=== PATIENT | male | born 1935 | race Caucasian/White ===

== ENCOUNTER 2018-02-10 13:29 | Emergency (ER) | payer OTHER ==
[~2018-02-10] VITALS: Ht 162.6 cm; Wt 55.6 kg
[~2018-02-10 13:29] MED LIST: ASPI-319 PO; MECL1TAB42 PO; MULT-506 PO; XNX25 PO; saw palmetto
[2018-02-10 13:33] VITALS: Ht 162.6 cm; Wt 55.6 kg
--- NOTE | 2018-02-10 14:01 | EMERGENCY ROOM VISIT NOTE ---
History Report prepared by Zeus: Lucie Abernathy Under the Supervision of: Dr. Carlos Cardona M.D. First contact with patient: 13:49 Chief Complaint: NEURO SYMPTOMS Stated Complaint: DIZZINESS,PAIN & DISCOMFORT IN HEAD History of Present Illness The patient is an 82 year old male who presents to the Emergency Room with complaints of waxing and waning vertigo symptoms beginning a couple of weeks ago. The patient reports this is the worst day he has had since being diagnosed with vertigo. He also complains of lightheadedness and dizziness. He notes the dizziness worsens with movement and describes it as "spinning." The patient's states he has a couple episodes of slurring his speech and head pressure in the last couple of weeks. The patient had a problem with his hearing aid 2 weeks ago and had it fixed. The next morning, he woke up with these symptoms. He denies weakness, numbness, difficulty swallowing, fevers, chills, chest pain , shortness of breath, abdominal pain, or melena. The patient states he has no history of diabetes or strokes. He notes he is not on blood thinners but takes baby aspirin daily. Source of History: patient, spouse/significant other Onset: 2 weeks ago Quality: other (spinning) Timing: waxes/wanes Modifying Factors (Worsening): movement Associated Symptoms: No fevers, No chills, No chest pain, No SOB, No abdominal pain, No melena, No weakness, No numbness Review of Systems See HPI for pertinent positives & negatives. A total of 10 systems reviewed and were otherwise negative. Past Medical & Surgical Medical Problems: (1) Calculus of kidney Old medical records were reviewed. Nurse's notes were reviewed and I agree with. Social History Smoking Status: Never Smoker Marital Status: Housing Status: lives with significant other Current/Historical Medications Scheduled Aspirin Enteric Coated (Ecotrin Or Generic), 81 MG PO DAILY Multivitamin (Multivitamin), 1 TAB PO DAILY Scheduled PRN Alprazolam (Xanax), 0.25 MG PO UD PRN for Anxiety Meclizine Hcl (Meclizine Hcl), 1 TAB PO TID PRN for Dizziness or Vertigo Allergies Coded Allergies: No Known Allergies (Verified , 02/10/18) Physical Exam Vital Signs Date Time Temp Pulse Resp B/P (MAP) Pulse Ox O2 Delivery O2 Flow Rate FiO2 02/10/18 16:52 36.5 54 18 154/79 94 02/10/18 13:33 36.5 68 18 142/84 97 Room Air Physical Exam General: Non-ill appearing older male in no acute distress. HEENT: Normal cephalic atraumatic. Pupils are equal round and reactive to light. No nystagmus. Sclerae anicteric. Extraocular movements are intact. Oropharynx is pink with moist mucous membranes. No swelling of the mouth lips or tongue. Neck: Supple with a midline trachea. No meningeal signs or stiffness, no JVD or bruits. No Stridor. Chest: Clear to auscultation bilaterally. No wheezes or rhonchi. No increased work of breathing. Heart: regular rate and rhythm. Abdomen: Soft nontender, nondistended without rebound guarding or rigidity. Extremities: No cyanosis clubbing or edema. No calf tenderness or assymetry Spine/Back. Non tender to palpation. No CVA tenderness Skin: Good turgor without rashes. Neurologic exam: Cranial nerves two through 12 are intact. Motor and sensation are intact and symmetrical throughout. Normal gate, some difficulty with heal to toe, negative Romberg's, normal finger to nose, no tremor. Medical Decision & Procedures ER Provider Diagnostic Interpretation: Radiology results as stated below per my review and radiologist interpretation: CT SCAN OF THE BRAIN WITHOUT IV CONTRAST CLINICAL HISTORY: Dizziness. COMPARISON STUDY: No priors. TECHNIQUE: Unenhanced axial CT scan of the brain is performed from the vertex to the skull base. A dose lowering technique was utilized adhering to the principles of ALARA. CT DOSE: 537.48 mGy.cm FINDINGS: Brain parenchyma: There are age-related involutional changes noting mild subcortical and periventricular microangiopathic change. There is no hemorrhage, mass effect, or evidence of acute territorial ischemia by CT criteria. Carrion-white matter is preserved. No extra-axial fluid collection is seen. Ventricles, sulci, cisterns: Prominent secondary to involutional change. Intracranial vasculature: There is atherosclerotic calcification of the cavernous carotid and vertebral arteries. Calvarium: Unremarkable. Sinuses and mastoids: The visualized paranasal sinuses are clear. The mastoid air cells are well pneumatized. Orbits: The bony orbits are grossly intact. IMPRESSION: There is no hemorrhage, mass effect, or evidence of acute territorial ischemia by CT criteria. Electronically signed by: Clark Newton M.D. 02/10/2018 2:52 PM Dictated Date/Time: 02/10/2018 2:50 PM CHEST ONE VIEW PORTABLE CLINICAL HISTORY: 82 years-old Male presenting with CHEST PAIN. TECHNIQUE: Portable upright AP view of the chest was obtained. COMPARISON: 07/21/2012. FINDINGS: Atherosclerosis of the aortic arch. Cardiac silhouette normal in size. Lungs and pleural spaces clear. Reverse right total shoulder arthroplasty new since prior exam. Degenerative changes of the spine. Degenerative changes of the left glenohumeral joint. Upper abdomen normal. IMPRESSION: 1. No acute cardiopulmonary disease. Electronically signed by: Cj Powers M.D. 02/10/2018 2:39 PM Dictated Date/Time: 02/10/2018 2:38 PM Laboratory Results 02/10/18 14:30 Red Blood Count 4.98, Mean Corpuscular Volume 90.4, Mean Corpuscular Hemoglobin 30.7, Mean Corpuscular Hemoglobin Concent 34.0, Mean Platelet Volume 10.5, Neutrophils (%) (Auto) 86.8, Lymphocytes (%) (Auto) 7.4, Monocytes (%) (Auto) 5.3, Eosinophils (%) (Auto) 0.1, Basophils (%) (Auto) 0.1, Neutrophils # (Auto) 9.28, Lymphocytes # (Auto) 0.79, Monocytes # (Auto) 0.57, Eosinophils # (Auto) 0.01, Basophils # (Auto) 0.01 02/10/18 14:30 Test 02/10/18 14:30 02/10/18 14:38 White Blood Count 10.69 K/uL (4.8-10.8) Red Blood Count 4.98 M/uL (4.7-6.1) Hemoglobin 15.3 g/dL (14.0-18.0) Hematocrit 45.0 % (42-52) Mean Corpuscular Volume 90.4 fL (80-100) Mean Corpuscular Hemoglobin 30.7 pg (25-34) Mean Corpuscular Hemoglobin Concent 34.0 g/dl (32-36) Platelet Count 261 K/uL (130-400) Mean Platelet Volume 10.5 fL (7.4-10.4) Neutrophils (%) (Auto) 86.8 % Lymphocytes (%) (Auto) 7.4 % Monocytes (%) (Auto) 5.3 % Eosinophils (%) (Auto) 0.1 % Basophils (%) (Auto) 0.1 % Neutrophils # (Auto) 9.28 K/uL (1.4-6.5) Lymphocytes # (Auto) 0.79 K/uL (1.2-3.4) Monocytes # (Auto) 0.57 K/uL (0.11-0.59) Eosinophils # (Auto) 0.01 K/uL (0-0.5) Basophils # (Auto) 0.01 K/uL (0-0.2) RDW Standard Deviation 42.1 fL (36.4-46.3) RDW Coefficient of Variation 12.8 % (11.5-14.5) Immature Granulocyte % (Auto) 0.3 % Immature Granulocyte # (Auto) 0.03 K/uL (0.00-0.02) Anion Gap 4.0 mmol/L (3-11) Est Creatinine Clear Calc Drug Dose 39.3 ml/min Estimated GFR () 67.1 Estimated GFR (Non- 57.9 BUN/Creatinine Ratio 15.6 (10-20) Calcium Level 9.9 mg/dl (8.5-10.1) Total Bilirubin 0.4 mg/dl (0.2-1) Direct Bilirubin 0.1 mg/dl (0-0.2) Aspartate Amino Transf (AST/SGOT) 24 U/L (15-37) Alanine Aminotransferase (ALT/SGPT) 24 U/L (12-78) Alkaline Phosphatase 53 U/L (45-117) Total Protein 7.5 gm/dl (6.4-8.2) Albumin 4.0 gm/dl (3.4-5.0) Lipase 182 U/L (73-393) Bedside Troponin I < 0.030 ng/ml (0-0.045) Laboratory studies as stated above per my review. Medications Administered Medications (Trade) Dose Ordered Sig/Elliott Route Start Time Stop Time Status Last Admin Dose Admin Sodium Chloride 250 ml @ 999 mls/hr Q16M STAT IV 02/10/18 14:02 02/10/18 14:17 DC 02/10/18 14:36 999 MLS/HR Sodium Chloride 1,000 ml @ 100 mls/hr Q10H STAT IV 02/10/18 14:02 02/10/18 17:12 DC 02/10/18 14:36 100 MLS/HR ECG Per My Interpretation Indication: other (neuro symptoms) Rate (beats per minute): 56 Rhythm: sinus bradycardia Findings: no acute ischemic change, left axis deviation, no ectopy Comparison ECG Date: 02/15/16 Change: no significant change ED Course 1350: Past medical records reviewed. The patient was evaluated in room B3B, and a complete history and physical examination were performed. 1402: Ordered Sodium Chloride 1000 ml @ 100 mls/hr IV, Sodium Chloride 250 ml @ 999 mls/hr IV. 1645: Upon reevaluation, the patient is resting comfortably. I discussed the results and treatment plan with him. He verbalized agreement of the treatment plan. The patient was discharged home. Medical Decision Differential Diagnosis: vertigo, arrhythmia, central neurologic process, electrolyte or metabolic abnormality. This patient comes in as described above. he has been complaining of dizziness for about 2 weeks and it is worse with movement. He looks well on exam and has a normal neurologic exam. He has no ataxia. EKG was obtained does not show ischemic changes or ectopy. He has no acute electrolyte or metabolic abnormalities. Troponin is negative as well. CAT scan of the head was unremarkable. I do not think this is likely a posterior process and he has had vertigo before. I did offer to do an MRI but he prefers to go home at this point and will follow up with his doctor this may be indicated if he is not getting better. They can continue use the meclizine and he has done well with therapy in the past that they should follow-up with his well. The patient and his were happy the plan and he was discharged to home. Medication Reconcilliation Current Medication List: was personally reviewed by me Blood Pressure Screening Patient's blood pressure: Elevated blood pressure Blood pressure disposition: Elevated BP felt to be situational Impression Primary Impression: Dizziness Scribe Attestation The scribe's documentation has been prepared under my direction and personally reviewed by me in its entirety. I confirm that the note above accurately reflects all work, treatment, procedures, and medical decision making performed by me. Departure Information Dispostion Home / Self-Care Referrals Elder Fleming M.D.(RONDA) (PCP) Patient Instructions My [facility] Additional Instructions Rest. Be careful getting up and down. Follow-up with your doctor in 1-2 days for recheck Continue using meclizine as previously directed. Be careful can make you groggy do not take before drinking, driving, working Return if: Fever or chills, worsening symptoms, numbness weakness, any new problems or concerns
[2018-02-10] MEDS ORDERED: SODIUM CHLORIDE 0.9% 1000ML 250 ML IV STA (14:02)
[2018-02-10] MEDS ORDERED: SODIUM CHLORIDE 0.9% 1000ML 1,000 ML IV STA (14:02)
--- NOTE | 2018-02-10 14:40 | DIAGNOSTIC IMAGING REPORT ---
CHEST ONE VIEW PORTABLE CLINICAL HISTORY: 82 years-old Male presenting with CHEST PAIN. TECHNIQUE: Portable upright AP view of the chest was obtained. COMPARISON: 07/21/2012. FINDINGS: Atherosclerosis of the aortic arch. Cardiac silhouette normal in size. Lungs and pleural spaces clear. Reverse right total shoulder arthroplasty new since prior exam. Degenerative changes of the spine. Degenerative changes of the left glenohumeral joint. Upper abdomen normal. IMPRESSION: 1. No acute cardiopulmonary disease. Electronically signed by: Cj Powers M.D. 02/10/2018 2:39 PM Dictated Date/Time: 02/10/2018 2:38 PM
[2018-02-10 14:45] LABS: BASO % 0.1 %; BASO ABS # 0.01 K/uL (0-0.2); EOS % 0.1 %; EOS ABS # 0.01 K/uL (0-0.5); HEMOGLOBIN 15.3 g/dL (14.0-18.0); IG# 0.03 K/uL (0.00-0.02); LYMPH % 7.4 %; LYMPH ABS # 0.79 K/uL (1.2-3.4); MEAN CELL VOLUME 90.4 fL (80-100); MEAN CORPUSCULAR HEMOGLOBIN 30.7 pg (25-34); MEAN PLATELET VOLUME 10.5 fL (7.4-10.4); MONO % 5.3 %; MONO ABS # 0.57 K/uL (0.11-0.59); NEUT % 86.8 %; NEUT ABS # 9.28 K/uL (1.4-6.5); PLATELET COUNT 261 K/uL (130-400); RED CELL DISTRIBUTION WIDTH CV 12.8 % (11.5-14.5); RED CELL DISTRIBUTION WIDTH SD 42.1 fL (36.4-46.3); WHITE BLOOD COUNT 10.69 K/uL (4.8-10.8)
--- NOTE | 2018-02-10 14:53 | DIAGNOSTIC IMAGING REPORT ---
CT SCAN OF THE BRAIN WITHOUT IV CONTRAST CLINICAL HISTORY: Dizziness. COMPARISON STUDY: No priors. TECHNIQUE: Unenhanced axial CT scan of the brain is performed from the vertex to the skull base. A dose lowering technique was utilized adhering to the principles of ALARA. CT DOSE: 537.48 mGy.cm FINDINGS: Brain parenchyma: There are age-related involutional changes noting mild subcortical and periventricular microangiopathic change. There is no hemorrhage, mass effect, or evidence of acute territorial ischemia by CT criteria. Carrion-white matter is preserved. No extra-axial fluid collection is seen. Ventricles, sulci, cisterns: Prominent secondary to involutional change. Intracranial vasculature: There is atherosclerotic calcification of the cavernous carotid and vertebral arteries. Calvarium: Unremarkable. Sinuses and mastoids: The visualized paranasal sinuses are clear. The mastoid air cells are well pneumatized. Orbits: The bony orbits are grossly intact. IMPRESSION: There is no hemorrhage, mass effect, or evidence of acute territorial ischemia by CT criteria. Electronically signed by: Clark Newton M.D. 02/10/2018 2:52 PM Dictated Date/Time: 02/10/2018 2:50 PM
[2018-02-10] MEDS ORDERED: ALPR-411 PO (15:11)
[2018-02-10 15:12] LABS: CALCIUM 9.9 mg/dl (8.5-10.1); CREATININE 1.18 mg/dl (0.60-1.40); POTASSIUM 4.1 mmol/L (3.5-5.1); TOTAL PROTEIN 7.5 gm/dl (6.4-8.2)
--- NOTE | 2018-02-10 16:17 | Pharmacy Progress Note ---
ED Pharmacist Progress Note Date of Service: Feb 10, 2018. Patient took a medication for dizziness this AM but did not know the name. Patient provided verbal consent for me to contact outpatient pharmacy. Per Danielle Chaparro ([place]), patient filled the following Rx in June 2017 : Meclizine 25 mg tab 1 tab po TID prn dizziness Med rec updated.
[2018-02-10 16:52] VITALS: BP 154/79; PULSE 54; TEMP 36.5; O2SAT 94
== END 2018-02-10 16:53 | disposition home or self-care (01) ==
LOC: C.EDB 13:31
DX: R42 Dizziness and giddiness (principal)

== ENCOUNTER 2018-07-20 14:52 | Inpatient (IN) ==
[2018-07-20 15:35] LABS: Basophils # (auto) 0.01 K/uL (0-0.2); Basophils % (auto) 0.1 %; Eosinophils # (auto) 0.01 K/uL (0-0.5); Eosinophils % (auto) 0.1 %; Hematocrit (blood only) 42.9 % (42-52); Hemoglobin 14.2 g/dL (14.0-18.0); Immature Granulocytes # (auto) 0.05 K/uL (0.00-0.02); Immature Granulocytes % (auto) 0.3 %; Lymphocytes # (auto) 0.98 K/uL (1.2-3.4); Lymphocytes % (auto) 6.7 %; Mean Corpuscular Hgb Conc 33.1 g/dL (32-36); Mean Corpuscular Volume 90.7 fL (80-100); Monocytes # (auto) 0.58 K/uL (0.11-0.59); Neutrophils # (auto) 13.02 K/uL (1.4-6.5); Neutrophils % (auto) 88.8 %; Platelet Count 283 K/uL (130-400); RDW Coefficient of Variation 13.9 % (11.5-14.5); Red Blood Count 4.73 M/uL (4.7-6.1); White Blood Count 14.65 K/uL (4.8-10.8)
[2018-07-20 15:53] LABS: Alanine Aminotransferase 48 U/L (12-78); Albumin Level 4.1 gm/dl (3.4-5.0); Aspartate Aminotransferase 39 U/L (15-37); Blood Urea Nitrogen 20 mg/dl (7-18); Calcium 8.8 mg/dl (8.5-10.1); Carbon Dioxide 28 mmol/L (21-32); Chloride 107 mmol/L (98-107); Est GFR (African American) 73.9; Est GFR (Non-African American) 63.8; Glucose 112 mg/dl (70-99); Magnesium 2.2 mg/dl (1.8-2.4); Potassium 4.3 mmol/L (3.5-5.1); Sodium 138 mmol/L (136-145)
[2018-07-20] MEDS ORDERED: HYDROmorphone INJ 0.5 MG/0.5 ML SYR IV STA (16:20)
[2018-07-20 16:25] LABS: Albumin Globulin Ratio 1.3 (0.9-2); Alkaline Phosphatase 56 U/L (45-117); Bilirubin,Total 0.5 mg/dl (0.2-1); Globulin 3.2 gm/dl (2.5-4.0); Total Protein 7.3 gm/dl (6.4-8.2); Troponin I < 0.015 ng/ml (0-0.045)
[2018-07-20] MEDS ORDERED: HYDROmorphone INJ 1 MG/ML SYRINGE IV STA (17:20)
[2018-07-20] MEDS ORDERED: OPTIRAY 320 125ml IV PRN (18:04)
--- NOTE | 2018-07-20 18:08 | History & Physical Report ---
Date of Service July 20, 2018 Assessment & Plan (1) Necrotizing pancreatitis: We will consult GI Dr. Palmer, bowel rest, IV fluids, pain control, will hold off on antibiotics at this time unless he spikes a temp. The last time I saw him I get a CA-19-9 which was elevated at 48 (2) Pancreatitis: As above recurrent pancreatitis. (3) GERD (gastroesophageal reflux disease): IV PPI (4) Leukocytosis: If patient deteriorates and develops fevers and clinically gets worse we will start antibiotics (5) Enlarged prostate: Not on an alpha vishal at this time (6) Anxiety: We will prescribe Ativan IV as needed, is on Xanax at home. We will hold off on DVT prophylaxis this time until we are sure he does not have necrotizing pancreatitis. She is inpatient status secondary to a lipase of 77,000 History of Present Illness Primary Care Provider: Elder Fleming MD 82-year-old male with past medical history of necrotizing pancreatitis, recurrent pancreatitis, GERD, cleft palate, anxiety, prostatic hypertrophy, and renal calculi was here 05/20-05/24 and then again on 06/02 06/04 with recurrent pancreatitis. He says today at 1030 after he ate breakfast he started to get abdominal pain and he knew it was pancreatitis coming on again. He was supposed to get an EGD/EUS Dr. Palmer in July, I do not know if this is been completed or not. Anyway his try to get in touch with Dr. Palmer's office but was unsuccessful and came to the emergency room and was found to have a lipase level of over 77,000. He was also found with leukocytosis of 14.65, he is not febrile. Past medical historynecrotizing pancreatitis, recurrent pancreatitis, GERD, cleft palate, anxiety, BPH, renal calculi, CKD 3 Past surgical historyappendectomy, back surgery, shoulder surgery Family historysenile dementia eval timers type, CAD. Social history-no tobacco, drugs, or alcohol, lives with his , is at the bedside. Indications have been reconciled and reviewed Allergies Allergy/AdvReac Type Severity Reaction Status Date / Time No Known Allergies Allergy Verified 07/20/18 15:32 Home Medications Home Medications Medication Instructions Recorded Confirmed Type alprazolam [Xanax] 0.25 - 0.5 mg PO TID PRN 06/02/18 07/20/18 History multivitamin 1 tab PO DAILY 06/02/18 07/20/18 History omega 7-yvd-ejk-fish oil [Fish Oil] 1,000 mg PO DAILY 06/02/18 07/20/18 History pantoprazole [Protonix] 40 mg PO DAILY 06/02/18 07/20/18 History aspirin 81 mg PO DAILY 07/20/18 07/20/18 History Past Med/Surg History Medical History Statin intolerance (Chronic) GERD (gastroesophageal reflux disease) (Chronic) Cleft palate (Chronic) Anxiety (Chronic) Enlarged prostate (Chronic) Calculus of kidney (Resolved) Surgical History History of shoulder surgery (Chronic) History of back surgery (Resolved) Hx of appendectomy (Resolved) Family History Other Alzheimer disease Heart disease Social History marital status: Current Living Situation: Spouse Feels Safe at Home: Yes Smoking Status: Never smoker Hx Alcohol Use: No Hx Substance Use: No Beliefs That Will Affect Care: None Preferred Language: Grenadian Visual Impairment: No Limitations Physical Exam 2 Vital Signs (Past 24 Hours): Last Vital Signs Temp 36.4 C L 07/20/18 14:54 Pulse 61 07/20/18 17:03 Resp 16 07/20/18 17:03 BP 144/78 H 07/20/18 17:03 Pulse Ox 96 07/20/18 17:03 ROS-No Headache, No Visual Changes, no nausea or vomiting, no Fever, No Chills, No Neck Pain or Stiffness, No Chest Pain, No Palpitations, No SOB, No PILLAI, No Cough, No Sputum, No Wheezing, positive abdominal Pain, No Diarrhea, No Hematemesis, No Hemoptysis, No Unexpected Weight Loss, No Flank pain, No Melena , No Hematochezia, No Frequency, No Urgency, No Burning, No Hematuria, No Rashes , No Diaphoresis. Appetite is Normal Physical Exam Gen-AAO x 3, NAD, Afebrile, cachectic Head-NCAT, EOMI, PERRLA, Anicteric Sclera, No Posterior Pharyngeal Erythema, cleft palate Neck-Supple, No JVD, No Thyromegaly, No Masses, No LAD, No Bruits Lungs-Clear to Auscultation Bilaterally, No Rales, No Rhonchi, No Wheezing, No Crepitus Chest-No S4, +S1, +S2, No S3, No Murmurs, No Rubs, No Gallops, No Ectopy Abdomen-Soft, Bowel Sounds Present, Tender mid-epigastrium, Non Distended, No Hepatomegaly, No Splenomegaly, No Palpable Masses, No Rebound, No Rigidity, mild guarding Musculoskeletal-Full Range of Motion Bilaterally, No CVAT Extremities-No Cyanosis, No Clubbing, No Edema Nuero-Cranial Nerves II-XII grossly intact, Motor WNL, DTRs WNL, Strength WNL, No Focal Psych-Normal Mood Results & Data Laboratory Results 07/20/18 07/20/18 Range/Units 15:27 15:27 WBC 14.65 H (4.8-10.8) K/uL RBC 4.73 (4.7-6.1) M/uL Hgb 14.2 (14.0-18.0) g/dL Hct 42.9 (42-52) % MCV 90.7 (80-100) fL MCH 30.0 (25-34) pg MCHC 33.1 (32-36) g/dL RDW Std Deviation 46.0 (36.4-46.3) fL RDW Coeff of Jillian 13.9 (11.5-14.5) % Plt Count 283 (130-400) K/uL MPV 10.0 (7.4-10.4) fL Immature Gran % (Auto) 0.3 % Neut % (Auto) 88.8 % Lymph % (Auto) 6.7 % [place] % (Auto) 4.0 % Eos % (Auto) 0.1 % Baso % (Auto) 0.1 % Immature Gran # (Auto) 0.05 H (0.00-0.02) K/uL Neut # (Auto) 13.02 H (1.4-6.5) K/uL Lymph # (Auto) 0.98 L (1.2-3.4) K/uL [place] # (Auto) 0.58 (0.11-0.59) K/uL Eos # (Auto) 0.01 (0-0.5) K/uL Baso # (Auto) 0.01 (0-0.2) K/uL Sodium 138 (136-145) mmol/L Potassium 4.3 (3.5-5.1) mmol/L Chloride 107 (98-107) mmol/L Carbon Dioxide 28 (21-32) mmol/L Anion Gap 3.0 (3-11) BUN 20 H (7-18) mg/dl Creatinine 1.09 (0.6-1.4) mg/dl Est Cr Clr Drug Dosing 42.0 ml/min Est GFR ( Amer) 73.9 Est GFR (Non-Af Amer) 63.8 BUN/Creatinine Ratio 18.0 (10-20) Glucose 112 H (70-99) mg/dl Calcium 8.8 (8.5-10.1) mg/dl Magnesium 2.2 (1.8-2.4) mg/dl Total Bilirubin 0.5 (0.2-1) mg/dl AST 39 H (15-37) U/L ALT 48 (12-78) U/L Alkaline Phosphatase 56 (45-117) U/L Troponin I < 0.015 (0-0.045) ng/ml Total Protein 7.3 (6.4-8.2) gm/dl Albumin 4.1 (3.4-5.0) gm/dl Globulin 3.2 (2.5-4.0) gm/dl Albumin/Globulin Ratio 1.3 (0.9-2) Lipase 41260 H (73-393) U/L Code Status & VTE Plan VTE Prophylaxis Plan VTE Prophylaxis will be ordered: No Reason for no VTE drug order: Contraindicated _ (1) Pancreatitis Acute pancreatitis complication: uninfected necrosis Chronicity: acute Pancreatitis type: unspecified pancreatitis type Qualified Code(s): K85.91 - Acute pancreatitis with uninfected necrosis, unspecified
--- NOTE | 2018-07-20 18:18 | CT Scan Report ---
CT abd pelvis IV con only CLINICAL HISTORY: pancreatitis, hx necrotizing pancreatitis COMPARISON STUDY: 06/02/2018 TECHNIQUE: The patient was scanned in a dynamic helical fashion during intravenous administration 1 t hrough 20 cc of Optiray 320. A dose lowering technique was utilized adhering to the principles of AL JUAN. CT DOSE: 286.91 mGycm FINDINGS: Lower chest: There are bibasilar opacities, statistically atelectatic. Liver: The contrast-enhanced liver is normal in size, contour, and attenuation. There is no intrahepa tic biliary ductal dilatation. The hepatic veins and portal veins are patent. Gallbladder: The gallbladder is not distended. There is mild pericholecystic fluid. No calculi are vi sualized. Spleen: No splenic masses are visualized. There is minimal perisplenic fluid. Pancreas: There is diffuse infiltration of the peripancreatic fat, consistent with the history of acu te pancreatitis. There is no current evidence of pancreatic necrosis. There is interval decrease in t he size of a 33 mm peripancreatic focus of wall necrosis. There are no new or enlarging focal peripan creatic fluid collections. Adrenal glands: Unremarkable. Kidneys: There is symmetric renal cortical enhancement. The kidneys are normal in size without hydron ephrosis. Bowel: There are no transition zones to indicate bowel obstruction. There is colonic diverticulosis. There is no evidence of acute or diverticular inflammatory change. There are prominent fluid-filled s mall bowel loops, likely secondary to an ileus. The stomach is fluid-filled and mildly distended. Peritoneum: There is a small amount of upper abdominal fluid which is felt to be secondary to pancrea titis. Vasculature: The abdominal aorta is normal in course and caliber. Adenopathy: None. Pelvic viscera: The prostate is enlarged measuring 66 mm. Skeletal structures: There is a bony defect involving the right iliac crest. This is likely secondary to a bone harvest site. Postsurgical changes are present within the lumbar spine. IMPRESSION: 1. Mildly distended fluid-filled stomach 2. CT evidence of acute pancreatitis. Interval decrease in the size of a 3 cm focus of presumed mikal d off necrosis adjacent to the pancreatic body 3. No evidence of drainable fluid collection 4. Mildly prominent fluid-filled small bowel loops without evidence of a transition zone. A mild ileu s is suspected. 5. Diverticulosis. No evidence of acute diverticulitis 6. Marked prostatomegaly Electronically signed by: Jarrett Hayes M.D. 07/20/2018 6:16 PM
[2018-07-20] MEDS ORDERED: LORazepam 0.5 MG/1 ML VIAL IV PRN (18:53)
--- NOTE | 2018-07-20 19:07 | Emergency Department Note ---
Entered by Edgar Galeas acting as a scribe for Maria Dolores Terry DO History of Present Illness General Chief complaint: Abdominal Pain Stated complaint: PAIN ACROSS BELLY Time Seen by Provider: 07/20/18 14:56 Source: patient History of Present Illness Onset (ago): hour(s) (this morning) Location: abdomen Pain Consistency: + constant Quality: + other (diffuse abdominal pain) Relieved By: not by medication (TUMS or Advil) Exacerbated By: + other (drinking Gatorade) Associated symptoms: + other (right abdomen numbness; sharp back pain; recent pancreatitis) The patient is an 82 year old male who presents to the Emergency Room with complaints of constant diffuse abdominal pain beginning this morning. The patient reports that the pain started about five minutes after drinking a glass of Gatorade. He states that his pain was not improved with TUMS, Advil, belching , or changing position. He notes that recently when he has a bowel movement, he becomes temporarily numb from his right to his lower abdomen, and then if he places weight on his right leg, he also becomes numb in the right abdomen but not the leg. The patient reports that this is the third time he has experienced this pain, stating that each time it has been pancreatitis. He notes that his past two episodes of this occurred in the past couple of months, first on May 19, and both developed shortly after eating or drinking. He notes some sharp back pain that is not associated with the numbness but was present during his prior cases of pancreatitis. He denies a history of pancreas issues prior to the past couple of months, Crohns, ulcerative colitis, gallbladder issues, leg swelling, or family history of pancreatitis. He notes that he was also diagnosed with diverticulitis a few weeks ago and has been taking protonix. He also reports a history of nervous stomach. He states that he has not been drinking alcohol for about 30 years. He reports that he has an upcoming appointment scheduled at [place] for an endoscopic ultrasound and EGD with Dr. Spencer KING. He notes that he has also seen Dr. Dawn KING. The notes that the patient received a CT of the abdomen a few weeks ago. Home Medications Home Medications Medication Instructions Recorded Confirmed Type alprazolam [Xanax] 0.25 - 0.5 mg PO TID PRN 06/02/18 07/20/18 History multivitamin 1 tab PO DAILY 06/02/18 07/20/18 History omega 7-eqo-mxd-fish oil [Fish Oil] 1,000 mg PO DAILY 06/02/18 07/20/18 History pantoprazole [Protonix] 40 mg PO DAILY 06/02/18 07/20/18 History aspirin 81 mg PO DAILY 07/20/18 07/20/18 History Allergies Allergy/AdvReac Type Severity Reaction Status Date / Time No Known Allergies Allergy Verified 07/20/18 15:32 Past Med/Surg History Medical History Statin intolerance (Chronic) GERD (gastroesophageal reflux disease) (Chronic) Cleft palate (Chronic) Anxiety (Chronic) Enlarged prostate (Chronic) Calculus of kidney (Resolved) Hypertension Surgical History History of shoulder surgery (Chronic) History of back surgery (Resolved) Hx of appendectomy (Resolved) Family History Other Alzheimer disease Heart disease Social History marital status: Current Living Situation: Spouse Other Information That Helps Us Care for You: No Feels Safe at Home: Yes Safety Concerns: Feels Safe At This Time Smoking Status: Never smoker Hx Alcohol Use: No Hx Substance Use: No Beliefs That Will Affect Care: None Preferred Language: Turkmen Communication Ability: Effective Review of Systems See HPI for pertinent positives & negatives. and A total of 10 systems reviewed and were otherwise negative Physical Exam Vital Signs Vital Signs - 24 hr 07/21/18 07:49 07/21/18 08:00 07/21/18 12:04 Temperature 36.6 C 36.7 C Temperature Source Oral Oral Pulse Rate 70 Pulse Rate [Apical] 69 74 Pulse Rate [Left Finger] Pulse Rhythm [Left Finger] Pulse Strength [Left Finger] Respiratory Rate 20 20 Respiratory Effort / Characteristics Respiratory Depth Respiratory Pattern Blood Pressure [Left Arm] 138/79 Blood Pressure [Right Arm] 121/68 Blood Pressure Mean [Left Arm] 98 Blood Pressure Mean [Right Arm] 85 Blood Pressure Position [Left Arm] Lying Blood Pressure Position [Right Arm] Pulse Oximetry 94 93 Oxygen Delivery Method Room Air Room Air 07/21/18 15:04 07/21/18 17:41 07/21/18 19:00 Temperature 36.8 C 37.0 C Temperature Source Oral Oral Pulse Rate Pulse Rate [Apical] Pulse Rate [Left Finger] 74 75 Pulse Rhythm [Left Finger] Pulse Strength [Left Finger] Respiratory Rate 18 18 Respiratory Effort / Characteristics Respiratory Depth Respiratory Pattern Blood Pressure [Left Arm] 147/75 H Blood Pressure [Right Arm] 158/116 H 152/87 H Blood Pressure Mean [Left Arm] 99 Blood Pressure Mean [Right Arm] 130 108 Blood Pressure Position [Left Arm] Lying Blood Pressure Position [Right Arm] Lying Pulse Oximetry 95 91 Oxygen Delivery Method Room Air Room Air 07/21/18 23:45 07/22/18 04:00 Temperature 37.2 C 37.3 C Temperature Source Oral Oral Pulse Rate Pulse Rate [Apical] Pulse Rate [Left Finger] 63 70 Pulse Rhythm [Left Finger] Regular Regular Pulse Strength [Left Finger] Normal Normal Respiratory Rate 18 18 Respiratory Effort / Characteristics Non-Labored Non-Labored Spontaneous Respiratory Depth Normal Normal Respiratory Pattern Regular Regular Blood Pressure [Left Arm] 124/62 Blood Pressure [Right Arm] 126/61 Blood Pressure Mean [Left Arm] 82 Blood Pressure Mean [Right Arm] 82 Blood Pressure Position [Left Arm] Lying Blood Pressure Position [Right Arm] Lying Pulse Oximetry 93 93 Oxygen Delivery Method Room Air Room Air GENERAL: alert, well appearing, well nourished, no distress, non-toxic EYE EXAM: normal conjunctiva, PERRL and EOM's grossly intact OROPHARYNX: no exudate, no erythema, lips, buccal mucosa, and tongue normal and mucous membranes are moist, evidence of repaired cleft palate NECK: supple, no nuchal rigidity, no adenopathy, non-tender LUNGS: Clear to auscultation. Normal chest wall mechanics, no w/r/r HEART: no murmurs, S1 normal and S2 normal ABDOMEN: abdomen soft, epigastric and central abdominal tenderness, normo- active bowel sounds, no masses, no rebound or guarding. BACK: Back is symmetrical on inspection and there is no deformity, no midline tenderness, no CVA tenderness. SKIN: no rashes and no bruising UPPER EXTREMITIES: upper extremities are grossly normal. FROM, nml pulses b/l. LOWER EXTREMITIES: No pitting edema. FROM, nml pulses b/l. NEURO EXAM: Normal sensorium, cranial nerves II-XII grossly intact, normal speech, no gross weakness of arms, no gross weakness of legs. Gross sensation intact. Course 1507: Past medical records reviewed. The patient was evaluated in room C6, and a complete history and physical examination were performed. 1554: Outpatient CT of the abdomen/pelvis report was reviewed as below: IMPRESSION Previous inflammatory changes involving the tail of the pancreas have predominantly resolved with a residual 4 cm collection along the inferior aspect of the pancreatic tail, which likely represents walled off necrosis. 1650: [place] [address]. 1654: I updated the patient on his results. He is still having pain. 1728: I consulted Natalie Gilbert PA-C: [facility]. She will evaluate the patient for hospitalization. 1826: I updated the patient on his CT results. Consultations Consultation #1: I consulted Natalie Gilbert PA-C: [facility]. She will reevaluate the patient for hospitalization. Time: 17:28 Administered Medications Enoxaparin Sodium (Lovenox) 40 mg SQ Q24H SUZANNE Stop: 08/20/18 13:44 Last Admin: 07/21/18 21:39 Dose: Not Given Pantoprazole Sodium 40 mg/ (Syringe) 10 mls @ 5 mls/min IV BID SUZANNE Stop: 08/19/18 20:59 Last Admin: 07/21/18 21:28 Dose: 5 mls/min Admin: 07/21/18 07:56 Dose: 5 mls/min Admin: 07/20/18 21:06 Dose: 5 mls/min Lactated Ringer's (Lr) 1,000 mls @ 175 mls/hr IV .Q5H43M SUZANNE Stop: 08/20/18 10:59 Last Admin: 07/22/18 05:36 Dose: 175 mls/hr Infusion: 07/22/18 03:17 Dose: 175 mls/hr Admin: 07/21/18 21:34 Dose: 175 mls/hr Infusion: 07/21/18 21:17 Dose: 175 mls/hr Admin: 07/21/18 15:34 Dose: 175 mls/hr Infusion: 07/21/18 15:34 Dose: 175 mls/hr Admin: 07/21/18 11:26 Dose: 175 mls/hr Discontinued Medications Hydromorphone HCl (Dilaudid) 0.5 mg IV NOW STA Stop: 07/20/18 16:21 Last Admin: 07/20/18 16:36 Dose: 0.5 mg Hydromorphone HCl (Dilaudid) 1 mg IV NOW STA Stop: 07/20/18 17:21 Last Admin: 07/20/18 17:40 Dose: 1 mg Sodium Chloride (Nss 1000ml) 1,000 mls @ 100 mls/hr IV .Q10H SUZANNE Stop: 07/22/18 18:14 Last Infusion: 07/21/18 16:35 Dose: 0 mls/hr Admin: 07/21/18 05:29 Dose: 100 mls/hr Infusion: 07/21/18 05:29 Dose: 100 mls/hr Infusion: 07/20/18 21:01 Dose: 100 mls/hr Infusion: 07/20/18 19:44 Dose: 0 mls/hr Admin: 07/20/18 19:35 Dose: 100 mls/hr Lactated Ringer's (Lr) 1,000 mls @ 999 mls/hr IV .Q1H1M ONE Stop: 07/21/18 14:47 Last Infusion: 07/21/18 15:35 Dose: 0 mls/hr Admin: 07/21/18 14:16 Dose: 999 mls/hr Ioversol (Optiray 320 125ml) 120 ml IV ONCE PRN PRN Reason: Interaction Checking Stop: 07/24/18 18:03 Last Admin: 07/20/18 18:04 Dose: 120 ml Morphine Sulfate (Morphine Sulfate) 4 mg IV Q4 PRN PRN Reason: Pain Stop: 08/03/18 18:52 Last Admin: 07/21/18 05:29 Dose: 4 mg Admin: 07/21/18 01:11 Dose: 4 mg Medical Decision Making Differential Diagnosis Differential diagnosis: Etiologies such as appendicitis, diverticulitis, PUD, biliary pathology, UTI, pancreatitis, obstruction, mesenteric ischemia, aortic pathology, infections, inflammatory bowel disease, renal colic, as well as others were entertained. Medical Records Attestation: I reviewed the patient's medical records. Home Medications Current Medication List: was personally reviewed by me Laboratory Data Attestation: I reviewed the patient's lab results. Result diagrams: 07/22/18 05:48 07/21/18 07:12 Lab Results 07/20/18 07/20/18 07/21/18 Range/Units 15:27 15:27 07:12 WBC 14.65 H (4.8-10.8) K/uL RBC 4.73 (4.7-6.1) M/uL Hgb 14.2 (14.0-18.0) g/dL Hct 42.9 (42-52) % MCV 90.7 (80-100) fL MCH 30.0 (25-34) pg MCHC 33.1 (32-36) g/dL RDW Std Deviation 46.0 (36.4-46.3) fL RDW Coeff of Jillian 13.9 (11.5-14.5) % Plt Count 283 (130-400) K/uL MPV 10.0 (7.4-10.4) fL Immature Gran % (Auto) 0.3 % Neut % (Auto) 88.8 % Lymph % (Auto) 6.7 % Calloway % (Auto) 4.0 % Eos % (Auto) 0.1 % Baso % (Auto) 0.1 % Immature Gran # (Auto) 0.05 H (0.00-0.02) K/uL Neut # (Auto) 13.02 H (1.4-6.5) K/uL Lymph # (Auto) 0.98 L (1.2-3.4) K/uL Calloway # (Auto) 0.58 (0.11-0.59) K/uL Eos # (Auto) 0.01 (0-0.5) K/uL Baso # (Auto) 0.01 (0-0.2) K/uL PT 11.3 (9.0-12.0) Seconds INR 1.1 (0.9-1.1) Sodium 138 (136-145) mmol/L Potassium 4.3 (3.5-5.1) mmol/L Chloride 107 (98-107) mmol/L Carbon Dioxide 28 (21-32) mmol/L Anion Gap 3.0 (3-11) BUN 20 H (7-18) mg/dl Creatinine 1.09 (0.6-1.4) mg/dl Est Cr Clr Drug Dosing 42.0 ml/min Est GFR ( Amer) 73.9 Est GFR (Non-Af Amer) 63.8 BUN/Creatinine Ratio 18.0 (10-20) Glucose 112 H (70-99) mg/dl Calcium 8.8 (8.5-10.1) mg/dl Magnesium 2.2 (1.8-2.4) mg/dl Total Bilirubin 0.5 (0.2-1) mg/dl AST 39 H (15-37) U/L ALT 48 (12-78) U/L Alkaline Phosphatase 56 (45-117) U/L Troponin I < 0.015 (0-0.045) ng/ml Total Protein 7.3 (6.4-8.2) gm/dl Albumin 4.1 (3.4-5.0) gm/dl Globulin 3.2 (2.5-4.0) gm/dl Albumin/Globulin Ratio 1.3 (0.9-2) Lipase 35101 H (73-393) U/L 07/21/18 07/22/18 07/22/18 Range/Units 07:12 05:48 05:48 WBC 10.91 H (4.8-10.8) K/uL RBC 3.99 L (4.7-6.1) M/uL Hgb 11.8 L (14.0-18.0) g/dL Hct 35.8 L (42-52) % MCV 89.7 (80-100) fL MCH 29.6 (25-34) pg MCHC 33.0 (32-36) g/dL RDW Std Deviation 46.4 H (36.4-46.3) fL RDW Coeff of Jillian 14.1 (11.5-14.5) % Plt Count 216 (130-400) K/uL MPV 10.3 (7.4-10.4) fL Immature Gran % (Auto) 0.2 % Neut % (Auto) 79.0 % Lymph % (Auto) 11.0 % Calloway % (Auto) 9.1 % Eos % (Auto) 0.6 % Baso % (Auto) 0.1 % Immature Gran # (Auto) 0.02 (0.00-0.02) K/uL Neut # (Auto) 8.62 H (1.4-6.5) K/uL Lymph # (Auto) 1.20 (1.2-3.4) K/uL Calloway # (Auto) 0.99 H (0.11-0.59) K/uL Eos # (Auto) 0.07 (0-0.5) K/uL Baso # (Auto) 0.01 (0-0.2) K/uL PT (9.0-12.0) Seconds INR (0.9-1.1) Sodium 139 (136-145) mmol/L Potassium 3.7 (3.5-5.1) mmol/L Chloride 106 (98-107) mmol/L Carbon Dioxide 27 (21-32) mmol/L Anion Gap 6.0 (3-11) BUN 22 H (7-18) mg/dl Creatinine 0.93 (0.6-1.4) mg/dl Est Cr Clr Drug Dosing 49.2 ml/min Est GFR ( Amer) 89.5 Est GFR (Non-Af Amer) 77.3 BUN/Creatinine Ratio 23.3 H (10-20) Glucose 113 H (70-99) mg/dl Calcium 8.4 L (8.5-10.1) mg/dl Magnesium (1.8-2.4) mg/dl Total Bilirubin 0.7 (0.2-1) mg/dl AST 39 H (15-37) U/L ALT 48 (12-78) U/L Alkaline Phosphatase 51 (45-117) U/L Troponin I (0-0.045) ng/ml Total Protein 6.3 L (6.4-8.2) gm/dl Albumin 3.3 L (3.4-5.0) gm/dl Globulin 3.0 (2.5-4.0) gm/dl Albumin/Globulin Ratio 1.1 (0.9-2) Lipase 93921 H 1230 H (73-393) U/L Imaging Data Radiologist's Impression: Radiology results as stated below per my review and the radiologist's interpretation: CT abd pelvis IV con only CLINICAL HISTORY: pancreatitis, hx necrotizing pancreatitis COMPARISON STUDY: 06/02/2018 TECHNIQUE: The patient was scanned in a dynamic helical fashion during intravenous administration 1 through 20 cc of Optiray 320. A dose lowering technique was utilized adhering to the principles of ALARA. CT DOSE: 286.91 mGycm FINDINGS: Lower chest: There are bibasilar opacities, statistically atelectatic. Liver: The contrast-enhanced liver is normal in size, contour, and attenuation. There is no intrahepatic biliary ductal dilatation. The hepatic veins and portal veins are patent. Gallbladder: The gallbladder is not distended. There is mild pericholecystic fluid. No calculi are visualized. Spleen: No splenic masses are visualized. There is minimal perisplenic fluid. Pancreas: There is diffuse infiltration of the peripancreatic fat, consistent with the history of acute pancreatitis. There is no current evidence of pancreatic necrosis. There is interval decrease in the size of a 33 mm peripancreatic focus of wall necrosis. There are no new or enlarging focal peripancreatic fluid collections. Adrenal glands: Unremarkable. Kidneys: There is symmetric renal cortical enhancement. The kidneys are normal in size without hydronephrosis. Bowel: There are no transition zones to indicate bowel obstruction. There is colonic diverticulosis. There is no evidence of acute or diverticular inflammatory change. There are prominent fluid-filled small bowel loops, likely secondary to an ileus. The stomach is fluid-filled and mildly distended. Peritoneum: There is a small amount of upper abdominal fluid which is felt to be secondary to pancreatitis. Vasculature: The abdominal aorta is normal in course and caliber. Adenopathy: None. Pelvic viscera: The prostate is enlarged measuring 66 mm. Skeletal structures: There is a bony defect involving the right iliac crest. This is likely secondary to a bone harvest site. Postsurgical changes are present within the lumbar spine. IMPRESSION: 1. Mildly distended fluid-filled stomach 2. CT evidence of acute pancreatitis. Interval decrease in the size of a 3 cm focus of presumed walled off necrosis adjacent to the pancreatic body 3. No evidence of drainable fluid collection 4. Mildly prominent fluid-filled small bowel loops without evidence of a transition zone. A mild ileus is suspected. 5. Diverticulosis. No evidence of acute diverticulitis 6. Marked prostatomegaly Electronically signed by: Jarrett Hayes M.D. 07/20/2018 6:16 PM ECG Data Attestation: I personally reviewed and interpreted this ECG as follows: Indication: abdominal pain Rate (beats per minute): 58 Rhythm: sinus bradycardia Findings: + other (normal intervals; baseline artifact noted) and + left axis deviation; no ST depression and no ST elevation Blood Pressure Blood Pressure Findings: Elevated blood pressure Blood Pressure Disposition: further management by hospitalist AZUL Garza Patient here with acute onset abdominal pain consistent with prior episodes of pancreatitis. Pt found to have markedly elevated lipase. Given prior CT findings of necrotizing pancreatitis, patient scheduled already for EGD and endoscopic ultrasound with Dr. Palmer. Due to concern for this and no way to contact Dr. Palmer or a covering [facility] GI physician, case discussed with [facility] for additional help managing the patient. In the interim a repeat CAT scan was obtained, and the previously noted area of necrotizing pancreatitis had substantially decreased. Patient started on IV fluids and given pain medication here which did help. Patient was hemodynamically stable. No other acute abnormalities noted on CT imaging, and other labs reassuring. Patient aware of all results and was in agreement with plan for additional inpatient management at this time. Impression & Plan Pancreatitis Discharge Plan Visit Data *Final* Discharge Date/Time: 07/20/18 18:34 Chief Complaint: Abdominal Pain Stated Complaint: PAIN ACROSS BELLY ED Provider: Maria Dolores Terry Discharge Problem: Pancreatitis Patient Disposition: Admitted As Inpatient Condition: Fair Discharge Instructions Interventions: ED Discharge Assessment Last Done: 07/20/18 18:34 The scribe's documentation has been prepared under my direction and personally reviewed by me in its entirety. I confirm that the note above accurately reflects all work, treatment, procedures, and medical decision making performed by me.
[2018-07-20] MEDS: SODIUM CHLORIDE 0.9% 1000ML 1,000 ML IV SCH (19:35)
[2018-07-20] MEDS: PANTOprazole 40 MG in SYRINGE 0 ML IV SCH (21:06)
[2018-07-21] MEDS: MoRPHine SULFATE 4 MG/ML 1 ML CARP\\VIAL IV PRN ×2 (01:11→05:29)
[2018-07-21] MEDS: SODIUM CHLORIDE 0.9% 1000ML 1,000 ML IV SCH (05:29)
[2018-07-21 07:34] LABS: INR 1.1 (0.9-1.1); Prothrombin Time 11.3 Seconds (9.0-12.0)
[2018-07-21 07:54] LABS: Albumin Level 3.3 gm/dl (3.4-5.0); BUN Creatinine Ratio 23.3 (10-20); Calcium 8.4 mg/dl (8.5-10.1); Creatinine Clr Calc Pharmacy 49.2 ml/min; Est GFR (African American) 89.5; Est GFR (Non-African American) 77.3; Potassium 3.7 mmol/L (3.5-5.1)
[2018-07-21] MEDS: PANTOprazole 40 MG in SYRINGE 0 ML IV SCH ×2 (07:56→21:28)
[2018-07-21 07:57] LABS: Albumin Globulin Ratio 1.1 (0.9-2); Bilirubin,Total 0.7 mg/dl (0.2-1); Total Protein 6.3 gm/dl (6.4-8.2)
--- NOTE | 2018-07-21 11:18 | Gastrointestinal Consultation ---
Date of Consultation July 21, 2018 Assessment & Plan (1) Pancreatitis: 1. Increase hydration. NS at 100cc/hr DC'ed. Will start LR at 175/hr. Would order rate to 250/hr but concerned at his age and small stature that it might cause fluid overload. 2. Though no clear indication for cholecystectomy, very reasonable to consider. If any microlithiasis is causing the pancreatitis, this could possibly prevent pancreatitis in the future. 3. Clear liquids po today. 4. Pt's is interested in transfer to [place]. Noted. However, the current treatment can be appropriately provided here at [facility]: fluids, bowel rest. 5. Pt's would like EUS today or tomorrow, however, EUS will likely need to be pushed back. If EUS is completed during or soon after an episode of acute pancreatitis, then landmarks and small lesions could be obscured. 6. Follow with lipase, Hb/Hct, electrolytes daily. Leukocytosis is more likely caused by pancreatitis vs infection as necrotic tissue is decreasing in size and pt w/o chills/sweats. Follow daily. Present on Admission?: Yes Supervising Physician Co-Signing Physician Notes I have personally seen and examined the patient with STACEY Shi. Her note reflects my exam and findings. I agree with her impression and plan. Pt with acute pancreatitis. NPO and pain control but most importantly he needs aggressive hydration. Needs 1 liter fluid bolus now and another liter over the next few hours( watch for CHF). Follow H/H and creatinine as indicator of needing more fluids. Discussed with at bedside as well. Yeyo Ca M.D. History of Present Illness Reason for Consultation: Pancreatitis Requesting Physician: Dr. Moe Attending Physician: Dr. Peña History of Present Illness Mr. Jl Palomo is an 82 yr old male with a hx of cleft lip post repair, GERD, BPH. He carries a hx of an initial episode of acute pancreatitis in May 2018. Initially, the CT scan suggested significant pancreatic tail inflammation. He did well and was discharged. Symptoms returned and he was readmitted in the end of May with CT suggesting necrotising pancreatitis. He was managed conservatively and did well after discharge. EUS was arranged for next week. Yesterday, after eating breakfast, he experienced upper abdomen pain, nausea and vomiting. He recognized this as the same pain that he experiences with pancreatitis and presented to the ED. On arrival, CT with acute pancreatitis, and a decrease in the size of walled off necrotic tissue. Lipase was elevated at 77k yesterday and decreased to 12k. His WBC on arrival was 14.6 with a shift left. His BUN is slightly elevated but creatinine is normal. Hb on arrival was 14.2. AST is mildly elevated at 39. Bilirubin and alk phos have remained normal. He has a gallbladder but there has not been evidence of stones or bile duct irregularities. He is awake, alert,oriented, hemodynamically stable. He tells me that his upper abdomen pain is "better," but has persisted and with prior episodes, his pain had resolved in 24 hrs. Allergies Allergy/AdvReac Type Severity Reaction Status Date / Time No Known Allergies Allergy Verified 07/20/18 15:32 Home Medications Home Medications Medication Instructions Recorded Confirmed Type alprazolam [Xanax] 0.25 - 0.5 mg PO TID PRN 06/02/18 07/20/18 History multivitamin 1 tab PO DAILY 06/02/18 07/20/18 History omega 8-cgv-xjp-fish oil [Fish Oil] 1,000 mg PO DAILY 06/02/18 07/20/18 History pantoprazole [Protonix] 40 mg PO DAILY 06/02/18 07/20/18 History aspirin 81 mg PO DAILY 07/20/18 07/20/18 History Patient History Medical History Statin intolerance (Chronic) GERD (gastroesophageal reflux disease) (Chronic) Cleft palate (Chronic) Anxiety (Chronic) Enlarged prostate (Chronic) Calculus of kidney (Resolved) Hypertension Surgical History History of shoulder surgery (Chronic) History of back surgery (Resolved) Hx of appendectomy (Resolved) Family History Other Alzheimer disease Heart disease Social History marital status: Current Living Situation: Spouse Other Information That Helps Us Care for You: No Feels Safe at Home: Yes Safety Concerns: Feels Safe At This Time Smoking Status: Never smoker Hx Alcohol Use: No Hx Substance Use: No Beliefs That Will Affect Care: None Preferred Language: French Communication Ability: Effective Review of Systems Constitutional: no fever, no chills, no sweats, no body aches and no fatigue Respiratory: no cough and no dyspnea Cardiovascular: no chest pain, no dyspnea on exertion, no palpitations and no edema Gastrointestinal: + abdominal pain, + bloating and + early satiety "feels full," "not hungry" Integumentary: no rash and no lesions no jaundice Neurologic: + gait abnormality and + numbness (reoports having felt some right flank, groin and rt buttocks numbness yesterday); no tremor(s), no seizure-like activity and no syncope Psychiatric: + change in appetite; no behavioral changes, no depression and no hopelessness Hematologic / Lymphatic: no easy bleeding, no easy bruising and no lymphadenopathy Physical Exam 2 Vital Signs (Past 24 Hours): Last Vital Signs Temp 36.6 C 07/21/18 08:00 Pulse 69 07/21/18 08:00 Resp 20 07/21/18 08:00 BP 121/68 07/21/18 08:00 Pulse Ox 94 07/21/18 08:00 Constitutional: WD/WN, vitals as above + thin; no acute distress uncomfortable Eyes: PERRL, conjunctivae normal, anicteric sclerae Neck: trachea midline, no thyromegaly no lymphadenopathy Respiratory: normal respiratory effort, lungs clear to auscultation Cardiovascular: RRR, no murmur, no edema Gastrointestinal (Abdomen): Inspection/Auscultation: normal bowel sounds ( hypoactive); abdomen not distended Percussion/Palpation: + abdomen tender ( epigastric tenderness, also discomfort across the upper abdomen); no ascites and abdomen not firm Neurologic: PERRL, EOMI, accommodation nl, no face palsy, no dysarthria Results & Data Laboratory Results WBC 14, Hb 14, Hct 42, platelets 263, Na 139, K 3.7, BUN 22, Cr 0.9, Diagnostic Findings CT IV contrast: 1. Mildly distended fluid-filled stomach 2. CT evidence of acute pancreatitis. Interval decrease in the size of a 3 cm focus of presumed walled off necrosis adjacent to the pancreatic body 3. No evidence of drainable fluid collection 4. Mildly prominent fluid-filled small bowel loops without evidence of a transition zone. A mild ileus is suspected. 5. Diverticulosis. No evidence of acute diverticulitis 6. Marked prostatomegaly _ (1) Pancreatitis Acute pancreatitis complication: uninfected necrosis Chronicity: acute Pancreatitis type: unspecified pancreatitis type Qualified Code(s): K85.91 - Acute pancreatitis with uninfected necrosis, unspecified
[2018-07-21] MEDS: LACTATED RINGER'S 1,000 ML IV SCH ×3 (11:26→21:34)
--- NOTE | 2018-07-21 12:56 | Hospitalist Progress Note ---
Date of Service July 21, 2018 Assessment & Plan (1) Pancreatic necrosis: Workup during prior admission to include a right upper quadrant ultrasound and an abdominal pelvis CT did not reveal any evidence of cholelithiasis. He denies alcohol use. The patient was planned to undergo an endoscopy with endoscopic ultrasound to screen for cholelithiasis as an outpatient, prior to admission. Per GI recommendations, this needs to be pushed back in the setting of acute inflammation. Continue bowel rest with pain and vomiting this morning. Continue more aggressive fluid resuscitation as increased per GI earlier today. Continue anti-emetics and pain medication as needed. Of note, area of necrotic inflammation has appeared to improve on CT imaging yesterday. (2) Numbness: Uncertain etiology. Patient states that it tracks from his right lower quadrant, wrapping around to his gluteus and down to the mid upper posterior thigh. However, this numbness is fleeting and only occurs when he is starting to walk and or when he sits down to use the restroom. Will continue to monitor for recurrences for now. (3) Leukocytosis: Likely secondary to acute necrotizing pancreatitis as above. (4) Anxiety: Ativan IV as needed. Patient is on Xanax at home. (5) DVT prophylaxis: add Lovenox. Full code Disposition-continue inpatient hospitalization while patient cannot tolerate p.o. Jess Peña DO [facility] Hospitalist Subjective 82-year-old man with a history of acute pancreatitis admission to the hospital in May 2018 presents again with a recurrence of acute pancreatitis. Since prior discharge she is been seen by the gastroenterology clinic and scheduled for an endoscopy with EUS to determine if the patient has underlying cholelithiasis. He was treated for chronic constipation at that time with daily MiraLAX. Prior to endoscopy, he presented to the ER on 07/20 reporting diffuse abdominal pain after drinking some Gatorade. The pain was not improved with Tums, Advil, belching or changing position. Workup revealed a lipase of 77 ,000 and he was admitted and placed on normal saline at 100 cc an hour overnight. The patient reported persistent abdominal pain requiring 8 mg of IV morphine and 1.5 mg of IV Dilaudid overnight. He reported vomiting twice this morning. Gastroenterology saw the patient and appropriately increased his IV fluids to lactated Ringer's at 175 cc an hour. The pain meds are controlling his pain he currently denies any nausea. He does state he is hungry. He denies any fevers or chills Physical Exam 2 Vital Signs (Past 24 Hours): Last Vital Signs Temp 36.7 C 07/21/18 12:04 Pulse 74 07/21/18 12:04 Resp 20 07/21/18 12:04 BP 138/79 07/21/18 12:04 Pulse Ox 93 07/21/18 12:04 CONSTITUTIONAL: WNWD, vitals as above, generally well-appearing EYES: normal conjuctivae, no scleral icterus RESPIRATORY: clear to auscultation bilaterally, no crackles, rales or wheezes, normal respiratory effort CARDIOVASCULAR: regular rate and rhythm, S1 and 2 heard without murmurs, gallops or rubs, no JVD, no peripheral edema GASTROINTESTINAL: normal bowel sounds, soft, diffuse tenderness worse in epigastric>RLQ>RUQ, voluntary guarding is present MUSCULOSKELETAL: strength 5/5 throughout, head is normocephalic and atraumatic SKIN: warm and dry NEUROLOGIC: CN 2-12 grossly intact, normal cognition, normal speech PSYCHIATRIC: alert cooperative and oriented to person, place and time. Euthymic mood, makes good eye contact Results & Data Laboratory Results Short CBC 07/20/18 Range/Units 15:27 WBC 14.65 H (4.8-10.8) K/uL Hgb 14.2 (14.0-18.0) g/dL Hct 42.9 (42-52) % Plt Count 283 (130-400) K/uL BMP 07/20/18 07/21/18 15:27 07:12 Sodium 138 139 Potassium 4.3 3.7 Chloride 107 106 Carbon Dioxide 28 27 BUN 20 H 22 H Creatinine 1.09 0.93 Glucose 112 H 113 H Calcium 8.8 8.4 L Cardiac Enzymes 07/20/18 Range/Units 15:27 Troponin I < 0.015 (0-0.045) ng/ml Liver Function 07/20/18 07/21/18 Range/Units 15:27 07:12 Total Bilirubin 0.5 0.7 (0.2-1) mg/dl AST 39 H 39 H (15-37) U/L ALT 48 48 (12-78) U/L Alkaline Phosphatase 56 51 (45-117) U/L Albumin 4.1 3.3 L (3.4-5.0) gm/dl Medications Administered Current Inpatient Medications Lorazepam (Ativan) 0.5 mg in 1 mls @ 1 mls/min IV Q4H PRN PRN Reason: Anxiety/Agitation Stop: 08/19/18 18:52 Pantoprazole Sodium 40 mg/ (Syringe) 10 mls @ 5 mls/min IV BID [facility] Stop: 08/19/18 20:59 Last Admin: 07/21/18 07:56 Dose: 5 mls/min Lactated Ringer's (Lr) 1,000 mls @ 175 mls/hr IV .Q5H43M [facility] Stop: 08/20/18 10:59 Last Admin: 07/21/18 11:26 Dose: 175 mls/hr Morphine Sulfate (Morphine Sulfate) 4 mg IV Q4 PRN PRN Reason: Pain Stop: 08/03/18 18:52 Last Admin: 07/21/18 05:29 Dose: 4 mg
[2018-07-21] MEDS ORDERED: LACTATED RINGER'S 1,000 ML IV ONE (13:47)
--- NOTE | 2018-07-21 17:37 | Oncology Consultation ---
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 No definite pancreatic mass lesion identified which is suspicious for the pancreatic cancer. Elevated CA 19-9 level is most likely related to the pancreatitis. I would not repeat another CA 19-9 level at this time especially when he has another episode pancreatitis. He will have further diagnostic workup by GI. There is no evidence of malignancy at this time, no further oncologic workup is indicated. We see him back in the clinic as needed. Elkin Gallagher MD Hem/Onc History of Present Illness Attending Physician: Jess Peña DO 82-year-old male, Oncology consultation because of slightly elevated CA 19-9 level noted in the blood workup done in May 2018, when he was admitted in the hospital for 1st episode of pancreatitis. I saw him at bedside, his was also at bedside, this is the 3rd episode pancreatitis in his case in the last few months, has some abdominal discomfort but no nausea, no vomiting, no fever, he denies any new cardiac or pulmonary symptoms, has some mild back pain, no leg edema, no bleeding from any sites. Allergies Allergy/AdvReac Type Severity Reaction Status Date / Time No Known Allergies Allergy Verified 07/20/18 15:32 Home Medications Home Medications Medication Instructions Recorded Confirmed Type alprazolam [Xanax] 0.25 - 0.5 mg PO TID PRN 06/02/18 07/20/18 History multivitamin 1 tab PO DAILY 06/02/18 07/20/18 History omega 6-ccr-vfs-fish oil [Fish Oil] 1,000 mg PO DAILY 06/02/18 07/20/18 History pantoprazole [Protonix] 40 mg PO DAILY 06/02/18 07/20/18 History aspirin 81 mg PO DAILY 07/20/18 07/20/18 History Patient History Medical History Statin intolerance (Chronic) GERD (gastroesophageal reflux disease) (Chronic) Cleft palate (Chronic) Anxiety (Chronic) Enlarged prostate (Chronic) Calculus of kidney (Resolved) Hypertension Surgical History History of shoulder surgery (Chronic) History of back surgery (Resolved) Hx of appendectomy (Resolved) Family History Other Alzheimer disease Heart disease Social History marital status: Current Living Situation: Spouse Other Information That Helps Us Care for You: No Feels Safe at Home: Yes Safety Concerns: Feels Safe At This Time Smoking Status: Never smoker Hx Alcohol Use: No Hx Substance Use: No Beliefs That Will Affect Care: None Preferred Language: Vietnamese Communication Ability: Effective Review of Systems REVIEW OF SYSTEMS: GENERAL: earlier he lost some weight when he pancreatitis, gained some weight but now has lost some additional weight, feeling slightly weak and tired, no fever or chills. SKIN: No skin rash, no bruising. HEAD: No headache, no dizziness. EYES: No change in the vision, no diplopia, EARS: No earache ,no tinnitus, NOSE: No epistaxis, No nasal discharge or stuffiness, MOUTH: No sores, no dysphagia, no hoarseness of voice, NECK: No lumps, No swelling in thyroid area. No stiffness. PULMONARY: No cough, No shortness of breath, no hemoptysis, no chest pain, No wheezing. CARDIOVASCULAR: No anginal chest pain, no PND, no orthopnea. No palpitation, no leg edema. No syncope. GASTRIINTESTINAL: abdominal pain and nausea present, no vomiting. No diarrhea, No constipation. No blood in stool or black tarry stools. No abdominal distention. UROLOGIC: No burning urination. No hematuria. MUSCULOSKELETAL: No joint pain, No joint swelling, no muscle weakness. HEMATOLOGIC: No anemia, no bleeding disorder, No bruising. NEUROLOGIC: No seizures, no focal weakness, no speech difficulty, No memory disturbances. No tingling or numbness of the extremities. PSYCHRIATRIC: somewhat anxious and depressed because of repeated episodes of pancreatitis. No psychosis. Physical Exam 2 Vital Signs (Past 24 Hours): Last Vital Signs Temp 36.8 C 07/21/18 15:04 Pulse 74 07/21/18 15:04 Resp 18 07/21/18 15:04 BP 158/116 H 07/21/18 15:04 Pulse Ox 95 07/21/18 15:04 On exam: - Alert and oriented x3, thin built man, not in any distress. - HEENT: no icterus, no pallor, Throat: Normal. - Neck: No palpable cervical lymphadenopathy. - Chest: clear to auscultation. - Abdomen: soft, nontender, no hepatomegaly, no splenomegaly. - No focal neuro deficit. - Extremities: no finger clubbing, no leg edema. Results & Data Laboratory Results Blood workup done on 07/20/2018: - WBC 14,600, H&H of 14.2/42.9, Platelet count of 283,000 - BUN/creatinine: 22/0.9 - Normal liver forces - Lipase level > 77,300. Lipase level dropped down to around 12,300 within 24 hour as of 07/21/2018. - CA 19-9 level > 48 (05/21/2018). Diagnostic Findings Doppler evaluation of both lower extremities (07/02/2018) - No evidence of DVT. CT scan of the chest (06/02/2018) - No evidence of pulmonary embolism. Inflammatory changes noted in the pancreatic tail. CT scan of the abdomen and pelvis done on 06/02/2018: 1. Progressively worsened necrotizing pancreatitis of the pancreatic tail with areas of parenchymal and peripancreatic necrosis. Persistent mild interstitial and peripancreatic edema of the distal pancreas body and pancreatic tail without drainable fluid collection. 2. Marked prostamegaly with bladder wall thickening suggestive of chronic bladder outlet obstruction. Correlate with urinalysis. 3. Mild wall thickening of the splenic flexure, likely reactive. 4. Colonic diverticulosis without acute diverticulitis. 5. Additional findings as above. CT scan of the abdomen pelvis done on 07/20/2018: IMPRESSION: 1. Mildly distended fluid-filled stomach 2. CT evidence of acute pancreatitis. Interval decrease in the size of a 3 cm focus of presumed walled off necrosis adjacent to the pancreatic body 3. No evidence of drainable fluid collection 4. Mildly prominent fluid-filled small bowel loops without evidence of a transition zone. A mild ileus is suspected. 5. Diverticulosis. No evidence of acute diverticulitis 6. Marked prostatomegaly
[2018-07-21] MEDS ORDERED: LORazepam 0.25 MG/0.5 ML VIAL IV PRN (20:31)
[2018-07-21] MEDS ORDERED: OLANZapine 10 MG/2.1 ML SDV IM PRN (20:35)
[2018-07-21] MEDS: ENOXAPARIN INJ 40 MG/0.4 ML SYR SQ SCH (21:39)
[2018-07-21] MEDS ORDERED: MoRPHine SULFATE 4 MG/ML 1 ML CARP\\VIAL IV PRN (23:06)
[2018-07-22] MEDS: LACTATED RINGER'S 1,000 ML IV SCH ×4 (05:36→23:33)
[2018-07-22 06:01] LABS: Basophils # (auto) 0.01 K/uL (0-0.2); Basophils % (auto) 0.1 %; Eosinophils # (auto) 0.07 K/uL (0-0.5); Eosinophils % (auto) 0.6 %; Hematocrit (blood only) 35.8 % (42-52); Hemoglobin 11.8 g/dL (14.0-18.0); Immature Granulocytes # (auto) 0.02 K/uL (0.00-0.02); Immature Granulocytes % (auto) 0.2 %; Mean Corpuscular Volume 89.7 fL (80-100); Mean Platelet Volume 10.3 fL (7.4-10.4); Monocytes # (auto) 0.99 K/uL (0.11-0.59); Monocytes % (auto) 9.1 %; Neutrophils # (auto) 8.62 K/uL (1.4-6.5); Platelet Count 216 K/uL (130-400); RDW Coefficient of Variation 14.1 % (11.5-14.5); RDW Standard Deviation 46.4 fL (36.4-46.3); Red Blood Count 3.99 M/uL (4.7-6.1); White Blood Count 10.91 K/uL (4.8-10.8)
[2018-07-22] MEDS: PANTOprazole 40 MG in SYRINGE 0 ML IV SCH (08:29)
--- NOTE | 2018-07-22 10:40 | Hospitalist Progress Note ---
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 Improved clinically without pain or vomiting this morning. He is hungry and asking for food. Has not moved his bowels yet, but also has not been up and out of bed. Will start slow with clears in setting of possible ileus seen on admission CT a/p. Regarding workup, currently no cholelithiasis has been seen on ultrasound or CT scans. He does have evidence of WOPN, which appears to be isolated and improved. This is secondary to his last episode of acute pancreatitis in May when following the evolution on imaging. He is not a diabetic as A1C was 5.6 in May. He does not comsume alcohol. Medications, including OTC meds reviewed , are not concerning as a cause. No known family history of pancreatitis or other autoimmune issues. He has no personal h/o autoimmune disease. At this point, the workup will likely be specific to GI, so would ultimately defer this to their discretion. However, continued workup as outpatient once acute inflammation has cleared may include initial evaluation with an endoscopic ultrasound to further evaluate for pancreatic ductal abnormalities, followed by MRCP if this is unrevealing for a cause. This was discussed with the patient's who is requesting to speak with the [facility]. (3) Numbness: Is not currently present. ?compression neuropathy. Would defer further workup to outpatient PCP. (4) Leukocytosis: Likely secondary to acute necrotizing pancreatitis as above, and is improved. (5) Anxiety: Place on home Xanax. DC IV Ativan. (6) DVT prophylaxis: Lovenox Full code Disposition-expect home when medically stable but will have PT/OT evaluate for safety prior to discharge. Needs to be reliably tolerating PO. Need to have a follow-up plan with GI prior to discharge as this is the second admission for this issue with unclear etiology to date. Jess Peña DO [facility] Hospitalist Subjective 82 yo M with acute pancreatitis. Pt has not required pain medications, has no vomiting and resolution of pain. He is requesting food. is concerned at bedside and requesting to speak with the GI doctor. Pt denies BM but also hasn' t ambulated. Physical Exam 2 Vital Signs (Past 24 Hours): Last Vital Signs Temp 36.4 C L 07/22/18 08:14 Pulse 65 07/22/18 08:14 Resp 16 07/22/18 08:14 BP 163/82 H 07/22/18 08:14 Pulse Ox 93 07/22/18 04:00 CONSTITUTIONAL: WNWD, vitals as above, generally well-appearing EYES: normal conjuctivae, no scleral icterus RESPIRATORY: clear to auscultation bilaterally, no crackles, rales or wheezes, normal respiratory effort CARDIOVASCULAR: regular rate and rhythm, S1 and 2 heard without murmurs, gallops or rubs, no JVD, no peripheral edema GASTROINTESTINAL: normal bowel sounds, soft, nontender, nondistended MUSCULOSKELETAL: strength 5/5 throughout, head is normocephalic and atraumatic SKIN: warm and dry NEUROLOGIC: CN 2-12 grossly intact, normal cognition, normal speech PSYCHIATRIC: alert cooperative and oriented to person, place and time. Euthymic mood, makes good eye contact Results & Data Laboratory Results Short CBC 07/22/18 Range/Units 05:48 WBC 10.91 H (4.8-10.8) K/uL Hgb 11.8 L (14.0-18.0) g/dL Hct 35.8 L (42-52) % Plt Count 216 (130-400) K/uL Medications Administered Current Inpatient Medications Alprazolam (Xanax) 0.25 mg PO TID PRN PRN Reason: Anxiety Stop: 08/21/18 10:53 Aspirin (Ecotrin Ectab) 81 mg PO DAILY [facility] Stop: 08/22/18 08:59 Enoxaparin Sodium (Lovenox) 40 mg SQ Q24H [facility] Stop: 08/20/18 13:44 Last Admin: 07/21/18 21:39 Dose: Not Given Lactated Ringer's (Lr) 1,000 mls @ 175 mls/hr IV .Q5H43M [facility] Stop: 08/20/18 10:59 Last Admin: 07/22/18 05:36 Dose: 175 mls/hr Morphine Sulfate (Morphine Sulfate) 2 mg IV Q4 PRN PRN Reason: Pain Stop: 08/03/18 18:52 Multivitamins (Multivitamin Tab) 1 tab PO DAILY [facility] Stop: 08/22/18 08:59 Non-Formulary Medication ([place] 5-Niy-Kyz-Fish Oil [Fish Oil]) 1,000 mg PO DAILY [facility] Stop: 08/22/18 08:59 Pantoprazole Sodium (Protonix) 40 mg PO DAILY [facility] Stop: 08/22/18 08:59
[2018-07-22] MEDS ORDERED: ALPRAZolam 0.5 MG TABLET PO PRN (10:54)
--- NOTE | 2018-07-22 15:02 | Gastroenterology Progress Note ---
Date of Service July 22, 2018 Assessment & Plan (1) Pancreatitis: 1. Increase hydration. NS at 100cc/hr DC'ed. Will start LR at 175/hr. Would order rate to 250/hr but concerned at his age and small stature that it might cause fluid overload. 2. Though no clear indication for cholecystectomy, very reasonable to consider. If any microlithiasis is causing the pancreatitis, this could possibly prevent pancreatitis in the future. 3. Clear liquids po today. 4. Pt's is interested in transfer to [place]. Noted. However, the current treatment can be appropriately provided here at [facility]: fluids, bowel rest. 5. Pt's would like EUS today or tomorrow, however, EUS will likely need to be pushed back. If EUS is completed during or soon after an episode of acute pancreatitis, then landmarks and small lesions could be obscured. 6. Follow with lipase, Hb/Hct, electrolytes daily. Leukocytosis is more likely caused by pancreatitis vs infection as necrotic tissue is decreasing in size and pt w/o chills/sweats. Follow daily. Supervising Physician Co-Signing Physician Notes I have personally seen and examined the patient with STACEY Shi on . Her note reflects my exam and findings. I agree with her impression and plan. Pt is feeling better. No N/V. Pancreatic numbers improving. Yeyo Clement M.D. Subjective Gastrointestinal: + abdominal pain, + bloating and + early satiety Neurologic: + numbness (reoports having felt some right flank, groin and rt buttocks numbness yesterday); no gait abnormality, no tremor(s), no seizure- like activity and no syncope Psychiatric: + change in appetite; no behavioral changes, no depression and no hopelessness Physical Exam 2 Vital Signs (Past 24 Hours): Last Vital Signs Temp 36.4 C L 07/22/18 08:14 Pulse 65 07/22/18 08:14 Resp 16 07/22/18 08:14 BP 163/82 H 07/22/18 08:14 Pulse Ox 93 07/22/18 04:00 Constitutional: WD/WN, vitals as above + thin; no acute distress Eyes: PERRL, conjunctivae normal, anicteric sclerae Neck: trachea midline, no thyromegaly Respiratory: normal respiratory effort, lungs clear to auscultation Cardiovascular: RRR, no murmur, no edema Gastrointestinal (Abdomen): Inspection/Auscultation: normal bowel sounds ( hypoactive); abdomen not distended Percussion/Palpation: + abdomen tender ( very mild with deep palpation of the epigastric area); no ascites and abdomen not firm Neurologic: PERRL, EOMI, accommodation nl, no face palsy, no dysarthria Results & Data Laboratory Results WBCs 14->10; Hb 14->11; lipase 77,000-> 1230. Yesterday, LFTs normal except AST 39. C4 0.[address] abd/pelvis on 07/22/18: 1. Mildly distended fluid-filled stomach 2. CT evidence of acute pancreatitis. Interval decrease in the size of a 3 cm focus of presumed walled off necrosis adjacent to the pancreatic body 3. No evidence of drainable fluid collection 4. Mildly prominent fluid-filled small bowel loops without evidence of a transition zone. A mild ileus is suspected. 5. Diverticulosis. No evidence of acute diverticulitis 6. Marked prostatomegaly _ (1) Pancreatitis Acute pancreatitis complication: uninfected necrosis Chronicity: acute Pancreatitis type: unspecified pancreatitis type Qualified Code(s): K85.91 - Acute pancreatitis with uninfected necrosis, unspecified
[2018-07-22 16:30] LABS: Appearance Urine Clear (Clear); Bacteria Urine Automated Negative (Negative); Bilirubin Urine Negative (Negative); Color Urine Yellow; Epithelial Cell Urine Auto 0-5 /lpf (0-5); Glucose Urine UA Negative (Negative); Ketones Urine Trace (Negative); Leukocyte Esterase Urine Negative (Negative); Nitrite Urine Negative (Negative); Protein Urine Negative (Negative); Specific Gravity Urine 1.007 (1.000-1.030); Urobilinogen Urine Negative (Negative); pH Urine 8.5 (4.5-7.5)
[2018-07-22] MEDS: ENOXAPARIN INJ 40 MG/0.4 ML SYR SQ SCH (20:49)
[2018-07-23] MEDS: LACTATED RINGER'S 1,000 ML IV SCH ×2 (06:11→08:10)
[2018-07-23 06:51] LABS: Hematocrit (blood only) 32.8 % (42-52); Hemoglobin 11.3 g/dL (14.0-18.0); Mean Corpuscular Hgb Conc 34.5 g/dL (32-36); Mean Corpuscular Volume 88.6 fL (80-100); Mean Platelet Volume 10.5 fL (7.4-10.4); Platelet Count 216 K/uL (130-400); RDW Coefficient of Variation 13.8 % (11.5-14.5); RDW Standard Deviation 45.1 fL (36.4-46.3); White Blood Count 8.03 K/uL (4.8-10.8)
[2018-07-23 07:38] LABS: BUN Creatinine Ratio 11.2 (10-20); Creatinine Clr Calc Pharmacy 59.9 ml/min; Est GFR (African American) 98.8; Est GFR (Non-African American) 85.3; Potassium 3.2 mmol/L (3.5-5.1)
[2018-07-23] MEDS ORDERED: OMEGA-3 (PURIFIED FISH OIL) 1 GM CAP PO SCH (09:00)
[2018-07-23] MEDS ORDERED: ASPIRIN 81 MG ECTAB PO SCH (09:00)
[2018-07-23] MEDS ORDERED: MULTIVITAMIN TAB PO SCH (09:00)
[2018-07-23] MEDS ORDERED: PANTOprazole 40 MG TAB PO SCH (09:00)
[2018-07-23] MEDS ORDERED: POTASSIUM CHLORIDE 20 MEQ TABCR PO ONE (11:15)
--- NOTE | 2018-07-23 12:52 | Discharge Summary ---
Date of Service July 23, 2018 Admission HPI Per Admitting Provider 82-year-old male with past medical history of necrotizing pancreatitis, recurrent pancreatitis, GERD, cleft palate, anxiety, prostatic hypertrophy, and renal calculi was here 05/20-05/24 and then again on 06/02 06/04 with recurrent pancreatitis. He says today at 1030 after he ate breakfast he started to get abdominal pain and he knew it was pancreatitis coming on again. He was supposed to get an EGD/EUS Dr. Palmer in July, I do not know if this is been completed or not. Anyway his try to get in touch with Dr. Palmer's office but was unsuccessful and came to the emergency room and was found to have a lipase level of over 77,000. He was also found with leukocytosis of 14.65, he is not febrile. Past medical historynecrotizing pancreatitis, recurrent pancreatitis, GERD, cleft palate, anxiety, BPH, renal calculi, CKD 3 Past surgical historyappendectomy, back surgery, shoulder surgery Family historysenile dementia eval timers type, CAD. Social history-no tobacco, drugs, or alcohol, lives with his , is at the bedside. Indications have been reconciled and reviewed Admission Exam Per Admitting Provider General Appearance: WD/WN, no apparent distress Head: normocephalic, atraumatic Eyes: normal inspection, PERRL, EOMI ENT: hearing grossly normal, pharynx normal (moist mucous membranes) Neck: supple, no JVD, no adenopathy Respiratory/Chest: lungs clear to auscultation. No wheezes, rales or rhonci. No respiratory distress or accessory muscle use Cardiovascular: regular rate, rhythm, no murmur, normal peripheral pulses Abdomen/GI: normal bowel sounds, soft, non-tender to palpation Extremities/Musculoskelatal: normal inspection, no calf tenderness, normal capillary refill, no pedal edema Neurologic/Psych: alert, normal mood/affect, oriented x 3 Skin: normal color, warm/dry Principal Diagnosis Acute pancreatitis Walled off pancreatic necrosis Discharge Exam CONSTITUTIONAL: WNWD, vitals as above, generally well-appearing EYES: normal conjuctivae, no scleral icterus RESPIRATORY: clear to auscultation bilaterally, no crackles, rales or wheezes, normal respiratory effort CARDIOVASCULAR: regular rate and rhythm, S1 and 2 heard without murmurs, gallops or rubs, no JVD, no peripheral edema GASTROINTESTINAL: normal bowel sounds, soft, nontender, nondistended MUSCULOSKELETAL: strength 5/5 throughout, head is normocephalic and atraumatic SKIN: warm and dry NEUROLOGIC: CN 2-12 grossly intact, normal cognition, normal speech PSYCHIATRIC: alert cooperative and oriented to person, place and time. Euthymic mood, makes good eye contact Discharge Data Allergies Allergy/AdvReac Type Severity Reaction Status Date / Time No Known Allergies Allergy Verified 07/20/18 15:32 Consultations 07/20/18 17:31 ED Decision to Admit Stat 07/20/18 18:18 Consult General Surgery Routine 07/20/18 18:53 Consult Gastroenterology Routine Consult Hematology Routine Ordered Studies 07/20/18 17:31 CT abd pelvis IV con only Stat Hospital Course (1) Acute pancreatitis: (2) Pancreatic necrosis: (3) Numbness: (4) Leukocytosis: (5) Anxiety: 82-year-old man presented to the ER with abdominal pain that started just prior to arrival. He was diagnosed with recurrent pancreatitis. He was hemodynamically stable and afebrile, oxygenating well on room air on arrival to the ER. Lipase was 77,000. Lactated Ringer's was started. Narcotics were given for pain. White blood cell count was 10.9, H&H 11.8/35.8, normal platelets, normal BMP, troponin was negative. CT abdomen pelvis with IV contrast was performed revealing evidence of acute pancreatitis with an interval decrease in the size of a 3cm focus of presumed walled off necrosis adjacent to the pancreatic body. There was no evidence of a drainable fluid collection. Mild ileus was suspected and no evidence of acute diverticulitis was present. He was admitted to the hospitalist service and gastroenterology was consulted. General surgery was also consulted in case the pancreatic patient developed necrotizing pancreatitis. He was kept n.p.o. for bowel rest. Antibiotics were not required. Gastroenterology recommended continuing conservative measures and advanced his diet. As he was previously admitted in May 2018 for an episode of acute pancreatitis, he had been scheduled for an outpatient EUS with Dr. Palmer from [facility]. This appointment was kept to be performed post discharge. Throughout the hospitalization his lipase trended down. He had an incidental CA-19-9 level that was slightly elevated around 48. Hematology oncology was consulted and thought the level was most likely related to the pancreatitis. No repeat CA-19- 9 level was recommended, and no further oncologic workup was indicated. At time of discharge he was tolerating solid food, pain-free and hemodynamically stable. He was discharged in stable condition with close follow-up with gastroenterology for EUS to continue workup of pancreatitis cause, now a recurrent issue. Notably no cholelithiasis had been seen on ultrasound or CT scans. He was not a known diabetic, was not known to consume alcohol, and took no [id number] medications that were concerning as a cause of pancreatitis. He also declined denies any family history of pancreatitis or other autoimmune issues. He has no personal history of autoimmune disease. Area of walled off pancreatic necrosis did not appear to cause an issue and did appear to be decreasing. Review of systems did reveal an intermittent numbness that was present in the lateral abdominal wall/hip area. This area of numbness was only present when he initiated ambulation or was sitting on the toilet, specifically. His numbness was not present during this encounter, however, may require further workup per primary care doctor if it persists. Total Time Total Time Spent Total Time Spent (In Minutes): 60 Total Time Includes: Examination of the Patient, Discharge Planning, Medication Reconciliation and Communication With Other Providers Discharge Plan Discharge Items Patient Disposition: Home - Self-Care Reason For Visit: SEVERE PANCREATITIS Discharge Diagnosis: Acute pancreatitis Walled off pancreatic necrosis Condition: Good Discharge Goals: Improve disease control and Prevent disease Activity: Resume your previous activity Non-emergency contact: Primary Care Provider Call non-emergency contact if: you have any medication questions, your symptoms worsen, your pain is not controlled, your pain is worsening, your pain is unusual for you, your pain is concerning for you and you have a fever Follow-up/Referrals: Elder Fleming MD [Primary Care Provider] - Diet: Regular Addtl Provider Instructions: Please continue all medications as prescribed below. Please follow-up with [facility] ON 07/30 for your endoscopic ultrasound procedure with Dr. Russell Palmer. Please follow-up with your primary care physician within one week of discharge. 07/27/2018 1:10 PM Provider Elder Fleming MD [facility] It was a pleasure taking care of you! Please call if you have any questions or problems. You can reach a [facility] hospitalist on duty at [facility] 24 hours a day by calling [phone]. Take care of yourself. Jess Peña DO [facility] Hospitalist Prescriptions: Continue multivitamin Tablet 1 tab PO DAILY RF: 0 alprazolam [Xanax] 0.5 mg Tablet 0.25 - 0.5 mg PO TID PRN (Reason: Anxiety) RF: 0 pantoprazole [Protonix] 40 mg Tablet,Delayed Release (Dr/Ec) 40 mg PO DAILY RF: 0 omega 3-rdt-chj-fish oil [Fish Oil] 1,000 mg (120 mg-180 mg) Capsule 1,000 mg PO DAILY RF: 0 aspirin 81 mg Tablet,Delayed Release (Dr/Ec) 81 mg PO DAILY RF: 0 Visit Report Forms: My [facility] Stand-Alone Forms: [facility] Discharge Orders: Discharge Order (Routine); Ordered 07/23/18 Ordered By: Jess Peña Admission Data Admit Date/Time: 07/20/18 18:17 Attending Provider: Jess Peña Admit Provider: Mono Moe Primary Care Provider: Elder Fleming Other Providers: Yeyo Ca ; Elkin Gallagher Service: Medical Other Interventions: Discharge Summary Assessment (RN) Last Done: 07/23/18 12:53 DC Date/Time DO NOT enter until pt leaves facility: 07/23/18 13:22
--- NOTE | 2018-07-23 13:42 | Gastroenterology Progress Note ---
Date of Service July 23, 2018 Assessment & Plan (1) Pancreatitis: No obvious etiology for this recurrent pancreatitis. There is no evidence of worsening necrosis in fact necrotic area is smaller than previous. 1. EUS is already scheduled for later next week. We will go forward with that as scheduled. 2. Low-fat regular consistency diet. 3. No GI contraindication to discharge. GI will sign off Supervising Physician Co-Signing Physician Notes I have personally seen and examined the patient with STACEY Shi om . Her note reflects my exam and findings. I agree with her impression and plan. Doing much better. Patient should follow up with already scheduled EUS next week. Yeyo Ca M.D. Subjective Mr. Palomo is an 82-year-old male with pancreatitis admitted on 07/20/2017. WBC 14->8, Lipase 77K ->543. He is tolerating low-fat, normal consistency diet. He tells us that he feels well and is free of pain Constitutional: no fever, no chills, no sweats, no body aches, no fatigue and no weakness Respiratory: no cough, no chest congestion and no dyspnea Cardiovascular: no chest pain, no dyspnea, no palpitations and no edema Gastrointestinal: as per Subjective / HPI and + abdominal pain (Resolved) Neurologic: + numbness (reoports having felt some right flank, groin and rt buttocks numbness yesterday); no gait abnormality, no tremor(s), no seizure- like activity and no syncope Psychiatric: + change in appetite; no behavioral changes, no depression and no hopelessness Physical Exam 2 Vital Signs (Past 24 Hours): Last Vital Signs Temp 36.7 C 07/23/18 12:53 Pulse 74 07/23/18 12:53 Resp 16 07/23/18 12:53 BP 150/78 H 07/23/18 12:53 Pulse Ox 95 07/23/18 12:53 Constitutional: WD/WN, vitals as above + thin; no acute distress Eyes: PERRL, conjunctivae normal, anicteric sclerae Neck: trachea midline, no thyromegaly Respiratory: normal respiratory effort, lungs clear to auscultation Cardiovascular: RRR, no murmur, no edema Gastrointestinal (Abdomen): Inspection/Auscultation: normal bowel sounds ( hypoactive); abdomen not distended Percussion/Palpation: abdomen nontender, no ascites and abdomen not firm Neurologic: PERRL, EOMI, accommodation nl, no face palsy, no dysarthria _ (1) Pancreatitis Acute pancreatitis complication: uninfected necrosis Chronicity: acute Pancreatitis type: unspecified pancreatitis type Qualified Code(s): K85.91 - Acute pancreatitis with uninfected necrosis, unspecified
== END 2018-07-23 13:22 | disposition home or self-care (01) | DRG 440 ==
LOC: ED 14:52 → 2N 18:17 → SUATTDRO 18:17 → 2N 18:34
DX: N40.0 Benign prostatic hyperplasia without lower urinary tract symptoms; R20.0 Anesthesia of skin; I10 Essential (primary) hypertension; Z79.82 Long term (current) use of aspirin; F41.9 Anxiety disorder, unspecified; K21.9 Gastro-esophageal reflux disease without esophagitis; Z79.899 Other long term (current) drug therapy; K85.91 Acute pancreatitis with uninfected necrosis, unspecified

== ENCOUNTER 2020-02-22 08:51 | Observation (INO) ==
--- NOTE | 2020-02-20 09:11 | Anesthesiology Consultation ---
Date of Service February 20, 2020 Covid 19 negative on 02/17/20. Assessment & Plan (1) Encounter for pre-operative examination: Chart Review Chart Review: Acceptable Risk for Surgery and Patient NOT seen in Pre Admission Testing Per nursing assessment 02/10/20, pt resides in [facility]. Travels occ to [facility] for medical appts. Wears mask, uses good hand hygiene and socially distances. Covid test 02/17/20= negative Seen by pulm 01/26/20= seen for preop clearance and follow up on lung nodules. Pt had CT scan of chest in 12/2019- SAMSON nodule possibly could reflect metastatic pancreatic cancer. Nodule very small in size. It "should not prelude consideration of proceeding with ventral hernia repair. He otherwise appears to be at average risk for the proposed procedure... there is no added risk for the proposed surgery because of the presence of the tiny nodule." Surveillance CT scanning is planned by oncologist. No other pulmonary intervention is recommended at this time. Seen by PCP 02/10/20= seen for medical clearance for hernia repair. CXR ordered. Pt should continue meds. "Pt is an acceptable surgical candidate." Seen by oncology 12/23/19= follow up observation of pancreatic cancer. Clinically patient is doing well. Would like to continue to observe patient. Labs ordered as well as repeat chest CT scan in three months to recheck pulm nodule (slightly increased in size). If nodule again increased in size in three months- will consider PET scan at that time. Oncology aware of hernia and that patient is following with general surgery. Seen by Cardiovascular Medicine 09/05/19= follow up for TAA. Pt doing very well. ECHO ordered to recheck aneurysm. (per phone note 09/15/19 from [facility]- "ECHO showed normal heart function. No sig valvular disease and a dilated aorta which is stable) History Surgery Operation Date: 02/22/20 10:30 Proposed Procedures p Diagnostic Laparoscopy, Laparoscopic Incisional Hernia Repair, Left Laparoscopic Spigelian Hernia Repair, Possible Open Incisional and Left Spigelian Hernia Repair - Jl Perkins, DO, FACS Height/Weight Height: 5 ft 4 in Weight: 54.431 kg Allergies Allergy/AdvReac Type Severity Reaction Status Date / Time Tyjojsw-Lmc-Cnk Reductase Allergy Mild MUSCLE Verified 02/22/20 09:29 Inhibitor ACHES morphine AdvReac Mild combative, Verified 02/22/20 09:29 nausea, vomiting Medications Home Medications Medication Instructions Recorded Confirmed Last Taken alprazolam [Xanax] 0.25 - 0.5 mg PO TID PRN 06/02/18 02/22/20 Unknown multivitamin 1 tab PO QAM 06/02/18 02/22/20 02/21/20 08:00 omega 6-kyw-xuu-fish oil [Fish Oil] 1,000 mg PO QAM 06/02/18 02/22/20 02/21/20 08:00 aspirin 81 mg PO QAM 07/20/18 02/22/20 02/21/20 08:00 ferrous fumarate 325 mg (106 mg 325 mg PO QAM tab 01/30/20 02/22/20 02/21/20 08:00 iron) tablet mirtazapine 15 mg tablet 15 mg PO HS 01/30/20 02/22/20 02/21/20 19:00 acetaminophen [Tylenol] 325 mg PO DAILY PRN 02/10/20 02/22/20 Unknown cholecalciferol (vitamin D3) 125 mcg PO QAM 02/10/20 02/22/20 02/21/20 08:00 [Vitamin D3] Active Medications Generic Name Dose Route Start Last Admin Trade Name Freq PRN Reason Stop Dose Admin Lactated Ringer's 1,000 mls @ 15 mls/hr 02/22/20 06:00 02/22/20 09:50 Lr IV 02/23/20 05:59 15 mls/hr .Q24H SUZANNE Administration Past Medical History Medical History Aneurysm of aorta ASCENDING AORTA-F/U DR ALEMAN Nish- 12/13/19 CT SCAN SHOWS STABLE ASCENDING AORTA DILATED AT 4.0 X 3.9 CM. Anxiety Cancer PANCREAS- DX'ED AUG 2018- S/P RESECTION AND CHEMO/XRT - CURRENTLY UNDER O BSERVATION BY ONCOLOGY Cleft palate S/p revision of nose surgeries for cleft lip and palate per records Enlarged prostate GERD (gastroesophageal reflux disease) History of back problems History of radiation therapy Hyperlipidemia Hypertension NO MEDS-SPOUSE DENIES Memory changes Stomach ulcer Past Family History Family History Brother Kidney stones Prostate cancer Heart disease Father Cancer Sister Breast cancer Other Alzheimer disease Past Surgical History Surgical History H/O esophagogastroduodenoscopy 07/30/2018 H/O prostate biopsy Needle/punch biopsy 01/26/07 History of back surgery Lumbar spine fustion, 1997 History of laparotomy REMOVAL PART PANCREAS,GALLBLADDER, SPLEEN-08/2018-RADIATION COMPLETED 02/2019 History of shoulder surgery rotator cuff 05/09 History of surgery Multiple surgeries to revise nose for cleft lip/palate Hx of appendectomy age 8 Hx of cataract surgery R/L Hx of colonoscopy S/P cholecystectomy Dr. Viral Huerta, 08/25/2018 Social History Smoking Status: Never smoker Do You Dip or Chew Tobacco: No Hx Alcohol Use: No Hx Substance Use: No Physical Exam Vital Signs Last Vital Signs Temp 36.7 C 02/22/20 09:33 Pulse 63 02/22/20 09:33 Resp 18 02/22/20 09:33 BP 140/82 02/22/20 09:33 Pulse Ox 98 02/22/20 09:33 Testing Laboratory Results Laboratory Tests 02/17/20 02/17/20 10:54 10:54 WBC 7.67 Hgb 13.7 L Hct 41.7 L Plt Count 437 H Sodium 138 Potassium 4.2 Chloride 106 Carbon Dioxide 28 BUN 21 H Creatinine 0.99 Glucose 101 H Electrocardiogram Date: 09/05/19 Findings: + SB @ (48) Chest X-Ray Date: 02/13/20 Findings: + NAD Lungs hyperinflated. Asymmetric right hemidiaphragm. Bibasilar scarring and/or subsegmental atelectesis. Echocardiogram Date: 09/14/19 EF: 55-59% LV Function: normal RWMA: + none Other Findings: + LVH (mild/concentric) Valvular Disease: + MR (mild) Aortic root and proximal ascending aorta are borderline enlarged (3.9/4.1cm). Mild AV sclerosis is present. Mild TR.
[~2020-02-22 08:51] MED LIST changes: -ASPI-319 PO; +CEFAZOLIN 2000MG 2,000 MG/15 ML SYR IV SCH; +LR 15ML/HR IV SCH; -MECL1TAB42 PO; -MULT-506 PO; -XNX25 PO; -saw palmetto
[2020-02-22] MEDS ORDERED: PHENYLEPHRINE 100MCG/ML 5ML SYR IV PRN (09:30)
[2020-02-22] MEDS ORDERED: LABETALOL HCL IV 5 MG/ML 20ML IV PRN (09:30)
[2020-02-22] MEDS ORDERED: ONDANSETRON INJ 2 MG/ML 2 ML VIAL IV PRN ×2 (09:30→18:28)
[2020-02-22] MEDS ORDERED: MEPERIDINE HCL 25 MG/ML CARP/VIAL IV PRN (09:30)
[2020-02-22] MEDS ORDERED: ATROPINE SULFATE 0.1 MG/ML 10ML SYR IV PRN (09:30)
[2020-02-22] MEDS ORDERED: fentaNYL citrate 100 MCG/2 ML VIAL IV PRN (09:30)
[2020-02-22] MEDS ORDERED: ePHEDrine sulfate 50 MG/ML AMP IV PRN (09:30)
[2020-02-22] MEDS ORDERED: HYDROmorphone INJ 1 MG/ML SYRINGE IV PRN ×3 (09:30→18:28)
--- NOTE | 2020-02-22 10:24 | History & Physical Bridge Note ---
Date of Service February 22, 2020 History & Physical Bridge Note I have examined the patient, reviewed the History & Physical and in the interval since the performance of the History & Physical I have noted the following changes of clinical significance: no changes noted
[2020-02-22] MEDS ORDERED: NEOSTIGMINE METHYLSULFATE 5 MG/5 ML SYR ONE (10:55)
[2020-02-22] MEDS ORDERED: ROCURONIUM BROMIDE 10 MG/ML 5 ML VIAL IV ONE (10:55)
[2020-02-22] MEDS ORDERED: fentaNYL citrate 100 MCG/2 ML VIAL ONE ×2 (10:55→14:28)
[2020-02-22] MEDS ORDERED: GLYCOPYRROLATE 0.2 MG/ML VIAL ONE (10:55)
[2020-02-22] MEDS ORDERED: LIDOCAINE HCL 2% 2 ML VIAL/AMP(20MG/ML) INFIL ONE (10:55)
[2020-02-22] MEDS ORDERED: DEXAMETHASONE SOD INJ 4 MG/ML VIAL ONE (10:55)
[2020-02-22] MEDS ORDERED: ONDANSETRON INJ 2 MG/ML 2 ML VIAL ONE (10:55)
[2020-02-22] MEDS ORDERED: PROPOFOL IV EMULSION 10 MG/ML 20 ML VIAL IV ONE ×2 (10:55→15:19)
[2020-02-22] MEDS ORDERED: BUPIVACAINE 0.5 % 5 MG/1 ML MPF 30ML VIAL ONE (12:47)
[2020-02-22] MEDS ORDERED: BUPIVACAINE LIPOSOME 1.3% 266 MG/20 ML VIAL ONE (12:48)
[2020-02-22] MEDS ORDERED: PHENYLEPHRINE 100MCG/ML 5ML SYR ONE (13:24)
[2020-02-22] MEDS ORDERED: ePHEDrine sulfate 50 MG/ML SYR ONE (13:24)
--- NOTE | 2020-02-22 16:02 | Post Operative Brief Note ---
PG Immediate Post Op with CF Date of Surgery February 22, 2020 Pre & Post Diagnosis Operation Date: 02/22/20 10:30 Pre-Op Diagnosis: Incisional Hernia, Left Spigelian Hernia Post-Op Diagnosis: Incisional Hernia, Left Spigelian Hernia I identified the patient and participated in the time-out.: Yes Procedure Operation Date: 02/22/20 10:30 Actual Procedures p Diagnostic Laparoscopy with lysis of adhesions, Laparoscopic-assisted Incisional Hernia Repair with mesh and Open Spigelian Hernia Repair with mes h(Left) - Jl Perkins DO, FACS Surgeon Jl Perkins DO, FACS Medical Interpreter Jerri Krishnan Estimated Blood Loss 10 Findings Consistent with Post-Op Diagnosis Diagnostic laparoscopy performed with lysis of adhesions from omentum to abdominal wall. Hernias were completely reduced. Above the umbilicus there were two 3 x 4 cm defects by a 7 mm bridge of fascia. On further inspection there is a diastases superior to this and several small defects and weaknesses within the abdominal wall. In the left lower quadrant there was a spigelian hernia. An incision was made overlying the incisional hernia defects, and these were closed in a transverse fashion using interrupted [id number] 0 Prolene sutures. We then reentered laparoscopically and a 15 x 20cm piece of ventra lite mesh with the echo positioning system was placed to cover the upper midline and fascial repair. The spigelian hernias used to access point for 12 mm port. A 6.4 cm piece of ventralex mesh was sewn into place using interrupted 0 Nurolon sutures. We reentered laparoscopically and both hernia repairs appeared to be intact. Exparel mixed with Marcaine was injected around the periphery of the repairs. Specimens Specimen Description: A. Incisional Hernia Sac Anesthesia Type General Disposition Accompanied Patient To Recovery: No Disposition: Recovery Room
--- NOTE | 2020-02-22 16:35 | Operative Report ---
PG Post Operative Report Pre & Post Diagnosis Operation Date: 02/22/20 10:30 Pre-Op Diagnosis: Incisional Hernia, Left Spigelian Hernia Post-Op Diagnosis: Incisional Hernia, Left Spigelian Hernia I identified the patient and participated in the time-out.: Yes Procedure Operation Date: 02/22/20 10:30 Actual Procedures p Diagnostic Laparoscopy with lysis of adhesions, Laparoscopic-assisted Incisional Hernia Repair with mesh and Open Spigelian Hernia Repair with mesh(Left) - Jl Perkins DO, KATHY Surgeon Jl Perkins DO, KATHY Casket Trimmer Jerri Krishnan Estimated Blood Loss 10 Findings Consistent with Post-Op Diagnosis Diagnostic laparoscopy performed with lysis of adhesions from omentum to abdominal wall. Hernias were completely reduced. Above the umbilicus there were two 3 x 4 cm defects by a 7 mm bridge of fascia. On further inspection there is a diastases superior to this and several small defects and weaknesses within the abdominal wall. In the left lower quadrant there was a spigelian hernia. An incision was made overlying the incisional hernia defects, and these were closed in a transverse fashion using interrupted [id number] 0 Prolene sutures. We then reentered laparoscopically and a 15 x 20cm piece of ventra lite mesh with the echo positioning system was placed to cover the upper midline and fascial repair. The spigelian hernias used to access point for 12 mm port. A 6.4 cm piece of ventralex mesh was sewn into place using interrupted 0 Nurolon sutures. We reentered laparoscopically and both hernia repairs appeared to be intact. Exparel mixed with Marcaine was injected around the periphery of the repairs. 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 The risks of the procedure were discussed, all questions were answered, and the patient agreed to proceed with surgery as planned. Description of Procedure The patient was properly identified, consented, and taken to the operating room where he was placed in the supine position with both arms tucked. General endotracheal anesthesia was induced. SCDs and a safety belt were placed. Preoperative antibiotics were administered. The patient's abdomen was prepped and draped in the standard sterile fashion. Surgical timeout was performed and all parties were in agreement that this was the correct patient and procedure to be performed and we continued as planned. An incision was made in the right upper quadrant and the Veress needle was inserted. Saline drop test confirmed entry into the peritoneum. The abdomen was insufflated with carbon dioxide which the patient tolerated without incident. The abdomen was then entered using the Optiview technique and a 5 mm trocar. The laparoscope was inserted and no damage from initial trocar or Veress needle placement was noted. There were some omental adhesions to the anterior abdominal wall and into the hernia sacs. There is also evidence of spigelian hernia. No other gross abnormalities were noted within the 4 quadrant s of the abdomen. 5 mm ports were then placed right lateral abdomen and right lower quadrant. The abdomen was explored. No bowel was herniating through the defect, however the remaining omentum was reduced. A lysis of adhesions was performed using a harmonic scalpel. Along the anterior abdominal wall at the site of the incisional hernia there were 2 separate 3 x 4 cm defects with a 7 mm wide bridge of fascia between the 2. Superior to this there appeared to be a diastases and there were multiple small pinhole defects in the midline abdominal wall. The spigelian hernia did not appear to be through all 3 layers of muscle, and appeared to be about 3 cm in size. After reviewing the options, I elected to perform a hybrid hernia pair with an open fascial closure and laparoscopic mesh placement. We turned our attention to the fascial defect at the incisional hernia site. We temporary stopped laparoscopic surgery and a supraumbilical midline incision was made for several centimeters. Hernia sac was dissected away from the subcutaneous tissues, excised, and passed off the table specimen. The fascial bridge was divided. There was quite a wide gap between the common defect which was now approximately 7 cm wide. I elected to close the defect transversely as there was very little tension in this manner. This was performed using interrupted 0 Prolene [id number] sutures. We resumed insufflation and the repair appeared to be mostly airtight. We reentered laparoscopically and the defect appeared to be well approximated. A 12 mm port was then placed in the left lower quadrant at the site of the spigelian hernia defect. A 5 mm port was then placed in the left lower quadrant inferior to this. We then chose a 15 x 20 cm piece of ventralight mesh with echo positioning system. The mesh was soaked for a few seconds and then rolled into a scroll and passed through the left lateral abdominal port site. Wojciech- Jose device was inserted through the anterior bowel wall at the site of the fascial closure, and was then used to grab the tab and pull it up through the anterior abdominal wall. This was cut and the positioning system inflated allowing the mesh to lay flat along the abdominal wall. The mesh covered all of the fascial repair as well as the diastases and multiple small defects with several centimeters of overlap. The mesh was oriented on its proper axis, and it was secured into place using the Sorbafix tacker along its entire perimeter. After the mesh was properly secured the positioning system was deflated and removed through the 12 mm port. We then completed securing the mesh in a double crown technique. We then remove the 12 mm port. A 6.4 cm piece of ventralex mesh was inserted through the defect and secured into place using interrupted 0 Nurolon sutures. We again reentered laparoscopically through the right lower quadrant and both pieces of mesh appeared to be in good place. There was good hemostasis and no injury to the bowel present. I injected Exparel mixed with Marcaine along the perimeter of the hernia repair into the subcutaneous tissues and fascia. Laparoscopy was ceased. The midline wound was irrigated. All the incisions were closed with interrupted 3-0 Vicryl deep dermal sutures followed by 4-0 Monocryl subcuticular sutures. Dermabond was placed over the wounds. Abdominal binder was placed. The patient was extubated in the operating room and taken to the PACU where he recovered without apparent incident. All sponge, instrument and needle counts were correct at the conclusion of the procedure. The patient tolerated the procedure well. The physician's assistant corporate controller was present and scrubbed for the entirety of the case. She was critical in positioning the patient, prepping and draping, retraction and exposure, driving the laparoscope, repair of the hernias and fixation of the mesh, closure of the incisions, and placement of the dressings. I attest to the content of the Intraoperative Record and any orders documented therein. Any exceptions are noted below.
[2020-02-22] MEDS ORDERED: ACETAMINOPHEN 1,000 MG/100 ML VIAL IV STA (16:45)
[2020-02-22] MEDS ORDERED: ACETAMINOPHEN 1000 MG/100 ML IV IV ONE (16:48)
--- NOTE | 2020-02-22 17:17 | Anesthesiology Progress Note ---
Date of Service February 22, 2020 Anesthesia Post Procedure Vital Signs Vital Signs: Temp Pulse Pulse Resp BP Pulse Ox 02/22/20 17:10 75 22 161/86 H 96 02/22/20 17:00 76 20 154/81 H 95 02/22/20 16:50 78 20 126/81 94 02/22/20 16:40 75 18 154/70 H 94 02/22/20 16:30 85 20 155/81 H 93 02/22/20 16:20 78 18 140/85 97 02/22/20 16:12 97.0 F L 79 20 167/83 H 96 02/22/20 09:33 98.1 F 63 18 140/82 98 Pain Intensity Abdomen: Pain Intensity: 4 Transfer of Care Handoff Completed per policy Notes Mental Status: alert / awake / arousable and participated in evaluation Patient Amnestic to Procedure: Yes Nausea / Vomiting: adequately controlled Pain: adequately controlled Airway Patency, RR, SpO2: stable & adequate BP & HR: stable & adequate Hydration State: stable & adequate Anesthetic Complications: no major complications apparent and Pt Satisfied with anesthetic care
[2020-02-22] MEDS ORDERED: ALPRAZolam 0.25 MG TABLET PO PRN (18:28)
[2020-02-22] MEDS ORDERED: OXYCODONE HCL IR 5 MG TAB (IMMEDIATE RELEASE) PO PRN ×2 (18:28)
[2020-02-22] MEDS ORDERED: ACETAMINOPHEN 1,000 MG/100 ML VIAL IV SCH (18:28)
[2020-02-22] MEDS: LACTATED RINGER'S 1,000 ML IV SCH (18:28)
[2020-02-22] MEDS ORDERED: HYDROmorphone INJ 0.5 MG/0.5 ML SYR IV PRN ×2 (19:03)
[2020-02-22] MEDS: KETOROLAC TROMETHAMINE 15 MG/ML VIAL IV SCH (20:11)
[2020-02-22] MEDS: CEFAZOLIN 2000MG 2,000 MG/15 ML SYR IV SCH (20:14)
[2020-02-22] MEDS ORDERED: MIRTAZAPINE TAB 15 MG TAB PO SCH (21:00)
[2020-02-23] MEDS: LACTATED RINGER'S 1,000 ML IV SCH (02:58)
[2020-02-23] MEDS ORDERED: Nursing to Pharmacy Communication SCH (03:15)
[2020-02-23] MEDS: CEFAZOLIN 2000MG 2,000 MG/15 ML SYR IV SCH ×2 (04:15→13:38)
[2020-02-23] MEDS: KETOROLAC TROMETHAMINE 15 MG/ML VIAL IV SCH ×2 (05:46→13:39)
[2020-02-23] MEDS ORDERED: ACETAMINOPHEN 1,000 MG/100 ML VIAL IV SCH (06:00)
[2020-02-23 06:25] LABS: Hematocrit (blood only) 37.2 % (42-52); Hemoglobin 12.2 g/dL (14.0-18.0); Mean Corpuscular Hemoglobin 30.5 pg (25-34); Mean Corpuscular Hgb Conc 32.8 g/dL (32-36); Mean Platelet Volume 10.2 fL (7.4-10.4); Platelet Count 347 K/uL (130-400); RDW Coefficient of Variation 13.9 % (11.5-14.5); RDW Standard Deviation 47.4 fL (36.4-46.3)
[2020-02-23 06:57] LABS: BUN Creatinine Ratio 24.3 (10-20); Calcium 8.5 mg/dl (8.5-10.1); Creatinine Clr Calc Pharmacy 40.8 ml/min; Est GFR (African American) 72.1; Est GFR (Non-African American) 62.2; Potassium 4.3 mmol/L (3.5-5.1)
[2020-02-23] MEDS ORDERED: ASPIRIN 81 MG ECTAB PO SCH (09:00)
--- NOTE | 2020-02-23 10:58 | Surgery Progress Note ---
Date of Service February 23, 2020 Assessment & Plan (1) History of incisional hernia repair: POD #1 laparoscopic incisional hernia repair and open spigelian hernia repair, doing well, pain controlled Discharge to home today Follow-up in clinic in 2 weeks as scheduled Activity restrictions and wound care instructions reviewed Percocet as needed pain Return precautions given, call with questions or concerns Admission and Anticipated Discharge Date Admission Date: February 22, 2020 Subjective 84-year-old male POD #1 laparoscopic assisted incisional hernia repair with mesh and open spigelian hernia repair with mesh. Overall doing well, some soreness in his abdomen especially when he sits up, the pain is well controlled. He tolerated diet and is ambulated. Physical Exam Constitutional: WD/WN, vitals as above Gastrointestinal (Abdomen): normal bowel sounds, soft, nontender, no hepatosplenomegaly Inspection/Auscultation: + abdominal surgical incision (Incisions with Dermabond in place, healing well, no evidence of infection or significant seroma/hematoma. No recurrent hernia.) Percussion/Palpation: no hernia Results & Data ([facility]) Vital Signs (Past 12 Hours) Vital Signs Temp Pulse Resp BP BP Pulse Ox 02/23/20 07:20 36.6 C 61 15 117/65 92 02/23/20 02:55 36.4 C L 78 16 124/64 92 02/22/20 23:05 36.9 C 68 16 140/81 96 PG Care Time/CCT Total # of Minutes Spent Total Time Spent with Patient: Total time spent is greater than 50% in coordination of care (as documented) at patient's floor/unit and/or counseling patient: Coding Level of Care Code None Diagnoses History of incisional hernia repair Z98.890; Z87.19
--- NOTE | 2020-02-27 14:07 | Discharge Summary ---
Date of Service February 27, 2020 Principal Diagnosis Incisional Hernia Spigelian Hernia Discharge Exam Constitutional well developed and well nourished Gastrointestinal (Abdomen) Inspection/Auscultation: + abdominal surgical incision (c/d/i with dermabond overtop, healing well with no evidence of infection) Percussion/Palpation: abdomen soft; abdomen nontender and no hepatomegaly Discharge Data Allergies Allergy/AdvReac Type Severity Reaction Status Date / Time [id number] Reductase Allergy Mild MUSCLE Verified 02/24/20 23:04 Inhibitor ACHES morphine AdvReac Mild combative, Verified 02/24/20 23:04 nausea, vomiting Procedures Performed Operation Date: 02/22/20 10:30 Actual Procedures p Diagnostic Laparoscopy with lysis of adhesions, Laparoscopic-assisted Incisional Hernia Repair with mesh and (Left) - Jl Perkins DO, FACS s Open Left Spigelian Hernia Repair with mesh(Left) - Jl Perkins DO, FACS Hospital Course (1) History of incisional hernia repair: This is an 84yM who presented to the [facility] on 02/22/20 for elective repair of both his incisional and spigelian hernia. He went to the OR on 02/[address] Perkins and underwent a laparoscopic assisted incisional hernia repair with mesh and an open spigelian hernia repair with mesh. The patient tolerated the procedure well, see op note for full details. The patient recovered in the PACU and was transferred to the surgical nursing floor in stable condition. Post operatively he required straight catheterization due to urinary retention, but he was able to void spontaneously thereafter. His diet was advanced from clears to a regular diet without issue. Pain remained well controlled on prn medication. His surgical incisions remained clean/dry/intact. On POD#1 the patient was deemed stable for discharge to home. He was tolerating a diet and pain remained well controlled. He was given instructions to follow up in clinic within 1-2 weeks for a post operative check up. Total Time Total Time Spent Total Time Spent (In Minutes): 10 Discharge Plan Discharge Items Patient Disposition: Home - Self-Care Reason For Visit: Incisional Hernia, Left Spigelian Hernia Discharge Diagnosis: incisional hernia repair & left spigelian hernia repair Condition on Discharge: Good Activity: Per Instructions section Lifting Comment: No heavy lifting greater than 20 pounds or strenuous activity for 6 weeks Bathing Comment: may shower starting today, 02/23/20; no soaking in tubs/pools Exercise/Sports: Wait until after follow-up appointment Driving/Machine Use: Resume 3 days after discharge Non-emergency contact: Surgeon Call non-emergency contact if: you have any medication questions, your symptoms worsen, your pain is not controlled, your pain is worsening, your pain is unusual for you, your pain is concerning for you, you have a fever, your temperature is above 101.5, your wound has increased redness, your wound has increased drainage and your wound pain has increased Follow-up/Referrals: Jl Perkins DO, KATHY [Physician] - 03/06/20 10:00 am () Elder Fleming MD [Primary Care Provider] - Diet: Regular Addtl Attending Provider Instructions: If you are taking the narcotic Percocet for pain do not take plain Tylenol. Both Percocet and Tylenol contain Acetaminophen and you should not exceed more than 3grams of Acetaminophen within a 24hour time period. Recommend that you may take ibuprofen or another NSAID along with the Percocet or Tylenol Pending Studies at Discharge: Yes Studies:: pathology of hernia sac Visit Report Forms: Smoking Cessation Stand-Alone Forms: My [facility], Opioid Pain Management, Work/School Release (Inpt), Smoking Cessation Medications and DC Order Prescriptions: New oxycodone-acetaminophen [Percocet] 5-325 mg tablet 1 - 2 tab PO Q6H PRN (Reason: pain) Qty: 30 RF: 0 Continued mirtazapine [Remeron] 15 mg tablet 15 mg PO HS RF: 0 ferrous fumarate 325 mg (106 mg iron) tablet 325 mg PO QAM RF: 0 multivitamin Tablet 1 tab PO QAM RF: 0 alprazolam [Xanax] 0.5 mg Tablet 0.5 mg PO TID PRN (Reason: Anxiety) RF: 0 omega 5-[id number]-tno-fish oil [Fish Oil] 1,000 mg (120 mg-180 mg) Capsule 1,000 mg PO QAM RF: 0 aspirin 81 mg Tablet,Delayed Release (Dr/Ec) 81 mg PO QAM RF: 0 cholecalciferol (vitamin D3) [Vitamin D3] 125 mcg (5,000 unit) Tablet 125 mcg PO QAM RF: 0 Discontinued acetaminophen [Tylenol] 325 mg Capsule 325 mg PO DAILY PRN (Reason: Pain) RF: 0 No Action tamsulosin [Flomax] 0.4 mg capsule 0.4 mg PO DAILY Qty: 10 RF: 0 Discharge Orders: Discharge Order (Routine); Ordered 02/23/20 Ordered By: Jl Patton/Other Patient Handouts: After Laparoscopic Hernia Repair Admission Data Admit Date/Time: 02/22/20 16:16 Attending Provider: Jl Perkins Admit Provider: Jl Perkins Primary Care Provider: Elder Fleming Other Interventions: Discharge Summary Assessment (RN) Last Done: 02/23/20 13:25 Coding Level of Care Code D/C Day Management <30 mins Diagnoses History of incisional hernia repair Z98.890; Z87.19
== END 2020-02-23 14:00 | disposition home or self-care (01) ==
LOC: 3W 08:51 → ASU 08:51

== ENCOUNTER 2020-07-26 12:58 | Inpatient (IN) ==
[2020-07-26 13:55] LABS: Hematocrit (blood only) 39.1 % (42-52); Hemoglobin 13.2 g/dL (14.0-18.0); Immature Granulocytes # (auto) 0.03 K/uL (0.00-0.02); Immature Granulocytes % (auto) 0.2 %; Lymphocytes # (auto) 0.57 K/uL (1.2-3.4); Lymphocytes % (auto) 3.7 %; Mean Corpuscular Hemoglobin 31.1 pg (25-34); Mean Corpuscular Hgb Conc 33.8 g/dL (32-36); Mean Corpuscular Volume 92.2 fL (80-100); Mean Platelet Volume 11.1 fL (7.4-10.4); Monocytes # (auto) 0.06 K/uL (0.11-0.59); Monocytes % (auto) 0.4 %; Neutrophils # (auto) 14.71 K/uL (1.4-6.5); Neutrophils % (auto) 95.7 %; Platelet Count 380 K/uL (130-400); RDW Standard Deviation 47.5 fL (36.4-46.3); Red Blood Count 4.24 M/uL (4.7-6.1); White Blood Count 15.37 K/uL (4.8-10.8)
[2020-07-26] MEDS ORDERED: SODIUM CHLORIDE 0.9% 1000ML 1,000 ML IV ONE (14:04)
[2020-07-26 14:08] LABS: Albumin Level 3.6 gm/dl (3.4-5.0); Calcium 9.1 mg/dl (8.5-10.1); Creatinine Clr Calc Pharmacy 42.2 ml/min; Est GFR (Non-African American) 67.3; Potassium 3.6 mmol/L (3.5-5.1)
--- NOTE | 2020-07-26 14:08 | Emergency Department Note ---
Impression & Plan Sepsis, Diverticulitis of colon with perforation, Abdominal pain ED Provider Note NAME: MENDEZ BISWAS AGE: 84 SEX: M : 1935 ARRIVES VIA: Walk-In INFORMANT: Patient ED PROVIDER(S): Milind Odom DO CHIEF COMPLAINT: Abdominal pain HPI: Patient is an 84-year-old male who presents ER for lower abdominal pain. Started earlier this morning. He has a history of pancreatic cancer with partial pancreatic resection, splenectomy, cholecystectomy and appendectomy. He admits to one episode of vomiting. Pain is constant in the right lower quadrant. Movement makes it worse. Denies any dysuria, urgency or frequency. No other exacerbating or remitting factors. ROS: See above HPI for pertinent positives & negatives. A total of 10 systems reviewed and were otherwise negative. PAST MEDICAL HISTORY:See Below PAST SURGICAL HISTORY:See Below FAMILY HISTORY:See Below SOCIAL HISTORY:See Below HOME MEDICATIONS:See Below ALLERGIES:See Below VITALS:See Below PHYSICAL EXAMINATION: GENERAL: Sitting up in bed, alert, well appearing, well nourished, no distress, non-toxic EYE EXAM: normal conjunctiva. OROPHARYNX: Dry mucous membranes NECK: supple, no nuchal rigidity, no adenopathy, non-tender LUNGS: Clear to auscultation. Normal chest wall mechanics HEART: no murmurs, S1 normal and S2 normal ABDOMEN: Abdomen tender, positive bowel sounds, positive rebound and guarding UPPER EXTREMITIES: upper extremities are grossly normal. LOWER EXTREMITIES: No pitting edema. NEURO EXAM: Normal sensorium, cranial nerves II-XII grossly intact, normal speech, no gross weakness of arms, no gross weakness of legs. MEDICAL DECISION MAKING: Patient is an 84-year-old male who presents the ER for abdominal pain. IV was established blood work was obtained. Labs show a leukocytosis of 15,000. No significant anemia. BMP with slightly elevated glucose at 134. T bili slightly elevated 1.9. Lipase was unremarkable. UA was negative. Covid was negative. CT abdomen pelvis shows perfect rated diverticulitis without abscess. Patient was given IV fluids and IV Zosyn. He did have a fever at 38. He was updated bedside. He was admitted to the hospitalist service after consulting with general surgery for the perforated diverticulitis and sepsis. Triage Nursing notes reviewed. Limited review of prior medical records performed Vital Signs: reviewed and remarkable for HTN, tachy Differential diagnosis: Differential diagnoses includes but is not limited to gastritis, peptic ulcer disease, GERD, gallbladder disease, pancreatitis, small bowel obstruction, acute coronary syndrome, pericarditis, ischemic bowel, irritable bowel disease, irritable bowel syndrome, appendicitis, diverticulitis, malignancy, hernia, urinary tract infection, torsion, perforation, trauma, infectious. ER treatment provided: See below Diagnostics interpreted by me: ECG: none Cardiac Monitoring: An order was placed for continuous cardiac monitoring. The monitor shows a rate of 95 with sinus rhythm. Laboratory studies: As stated above and show below. Imaging studies: CT abdomen pelvis shows perforated diverticulitis Consultation(s): Discussed with Jerri from general surgery who evaluated the patient at bedside Discussed with Dr. Reji Giraldo for admission from the hospital service Procedures: none Past Med/Surg History Medical History Anemia Aneurysm of aorta ascending aorta (follows with Dr. 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 per records Dementia Enlarged prostate GERD (gastroesophageal reflux disease) Hyperlipidemia Hypertension no meds Memory changes Pulmonary nodule denies Surgical History H/O esophagogastroduodenoscopy H/O prostate biopsy History of arthroscopy of shoulder History of back surgery Lumbar spine fusion, 1997 History of dental surgery dental implants placed History of incisional hernia repair lap incisional hernia repair, open left spigelian hernia repair: 02/22/2020: Grade view 1, MAC #3, ETT 7.0 at [facility] History of laparotomy partial removal pancreas/gallbladder/spleen (08/2018) History of repair of right rotator cuff History of reverse total replacement of right shoulder joint History of surgery Multiple surgeries to revise nose for cleft lip/palate Hx of appendectomy age 8 Hx of cataract surgery R/L Hx of colonoscopy S/P cholecystectomy Family History Brother Prostate cancer Heart disease Kidney stones Father Cancer Sister Breast cancer Other Alzheimer disease No family history of adverse response to anesthesia Social History Smoking Status: Never smoker Second Hand Exposure: No; Hx Alcohol Use: No Hx Substance Use: No Preferred Language: Mexican Communication Ability: Effective Visual Impairment: No Limitations Hearing Ability: Hard of Hearing Associate [employer] Required: No Beliefs That Will Affect Care: None marital status: Current Living Situation: Spouse Other Information That Helps Us Care for You: No Feels Safe at Home: Yes Safety Concerns: Feels Safe At This Time Assistive Devices: Cane Allergies Allergies Allergy/AdvReac Type Severity Reaction Status Date / Time Cjysvkj-Tst-Gpf Reductase Allergy Mild myalgias Verified 07/26/20 14:56 Inhibitor morphine AdvReac Mild combative, Verified 07/26/20 14:56 N/V Home Meds Home Medications Medication Instructions Recorded Confirmed alprazolam [Xanax] 0.5 mg PO TID PRN 06/02/18 07/26/20 omega 6-uev-mop-fish oil [Fish Oil] 1,000 mg PO QAM 06/02/18 07/26/20 aspirin 81 mg PO QAM 07/20/18 07/26/20 mirtazapine 15 mg tablet 15 mg PO HS 01/30/20 07/26/20 cholecalciferol (vitamin D3) 125 mcg PO QAM 02/10/20 07/26/20 [Vitamin D3] Mucinex Cold,Flu,Sore Throat 20 ml PO BID PRN 06/22/20 07/26/20 magnesium 500 mg PO QAM 06/22/20 07/26/20 tamsulosin [Flomax] 0.4 mg PO QPM 06/22/20 07/26/20 polyethylene glycol 3350 [Miralax] 17 g PO DAILY 06/25/20 07/26/20 dutasteride 0.5 mg PO DAILY 07/26/20 07/26/20 Previous Rx's Medication Instructions Recorded dicyclomine 20 mg PO TID PRN #30 tab NS 06/25/20 Results & Data (ED) Vital Signs Vital Signs - 24 hr 07/26/20 12:59 07/26/20 13:32 07/26/20 13:51 Temperature 36.6 C Temperature Source Oral Pulse Rate 110 H 103 H Pulse Rate [Left Apical] Pulse Rate from SpO2 Sensor 101 H Pulse Strength [Left Apical] Respiratory Rate 18 20 Respiratory Effort / Characteristics Respiratory Depth Blood Pressure 154/78 H Blood Pressure [Right Arm] Blood Pressure Mean 103 Blood Pressure Mean [Right Arm] Blood Pressure Position [Right Arm] Pulse Oximetry 94 93 92 Oxygen Delivery Method Room Air Room Air Sepsis Recent Fever Within 48 Hours No Sepsis New/Unexplained Change in Mental Status No Sepsis Action Taken by Nursing No Action Required 07/26/20 14:00 07/26/20 14:22 07/26/20 14:30 Temperature Temperature Source Pulse Rate 98 H 100 H 96 H Pulse Rate [Left Apical] Pulse Rate from SpO2 Sensor 98 H 98 H 97 H Pulse Strength [Left Apical] Respiratory Rate 22 20 22 Respiratory Effort / Characteristics Respiratory Depth Blood Pressure 136/74 135/73 Blood Pressure [Right Arm] Blood Pressure Mean 94 93 Blood Pressure Mean [Right Arm] Blood Pressure Position [Right Arm] Pulse Oximetry 92 92 92 Oxygen Delivery Method Sepsis Recent Fever Within 48 Hours Sepsis New/Unexplained Change in Mental Status Sepsis Action Taken by Nursing 07/26/20 15:13 07/26/20 15:30 07/26/20 15:49 Temperature Temperature Source Pulse Rate 93 H 93 H 98 H Pulse Rate [Left Apical] Pulse Rate from SpO2 Sensor 93 H 93 H Pulse Strength [Left Apical] Respiratory Rate 20 20 23 Respiratory Effort / Characteristics Respiratory Depth Blood Pressure 125/101 H 128/82 Blood Pressure [Right Arm] Blood Pressure Mean 90 109 97 Blood Pressure Mean [Right Arm] Blood Pressure Position [Right Arm] Pulse Oximetry 92 94 Oxygen Delivery Method Sepsis Recent Fever Within 48 Hours Sepsis New/Unexplained Change in Mental Status Sepsis Action Taken by Nursing 07/26/20 16:00 07/26/20 16:30 07/26/20 17:00 Temperature Temperature Source Pulse Rate 89 93 H Pulse Rate [Left Apical] Pulse Rate from SpO2 Sensor 116 H Pulse Strength [Left Apical] Respiratory Rate 20 22 23 Respiratory Effort / Characteristics Respiratory Depth Blood Pressure 128/77 Blood Pressure [Right Arm] Blood Pressure Mean 94 Blood Pressure Mean [Right Arm] Blood Pressure Position [Right Arm] Pulse Oximetry 90 Oxygen Delivery Method Sepsis Recent Fever Within 48 Hours Sepsis New/Unexplained Change in Mental Status Sepsis Action Taken by Nursing 07/26/20 17:02 07/26/20 17:53 Temperature 38.5 C H Temperature Source Oral Pulse Rate Pulse Rate [Left Apical] 97 H Pulse Rate from SpO2 Sensor 101 H Pulse Strength [Left Apical] Normal Respiratory Rate 18 Respiratory Effort / Characteristics Non-Labored Respiratory Depth Normal Blood Pressure 132/75 Blood Pressure [Right Arm] 120/71 Blood Pressure Mean 94 Blood Pressure Mean [Right Arm] 87 Blood Pressure Position [Right Arm] Sitting Pulse Oximetry 93 97 Oxygen Delivery Method Room Air Sepsis Recent Fever Within 48 Hours Sepsis New/Unexplained Change in Mental Status Sepsis Action Taken by Nursing Laboratory Data Result diagrams: 07/26/20 13:35 07/26/20 13:35 Lab Results 07/26/20 07/26/20 07/26/20 Range/Units 13:35 13:35 16:25 WBC 15.37 H (4.8-10.8) K/uL RBC 4.24 L (4.7-6.1) M/uL Hgb 13.2 L (14.0-18.0) g/dL Hct 39.1 L (42-52) % MCV 92.2 (80-100) fL MCH 31.1 (25-34) pg MCHC 33.8 (32-36) g/dL RDW Std Deviation 47.5 H (36.4-46.3) fL RDW Coeff of Jillian 14.0 (11.5-14.5) % Plt Count 380 (130-400) K/uL MPV 11.1 H (7.4-10.4) fL Immature Gran % (Auto) 0.2 % Neut % (Auto) 95.7 % Lymph % (Auto) 3.7 % [place] % (Auto) 0.4 % Eos % (Auto) 0.0 % Baso % (Auto) 0.0 % Neut # (Auto) 14.71 H (1.4-6.5) K/uL Lymph # (Auto) 0.57 L (1.2-3.4) K/uL [place] # (Auto) 0.06 L (0.11-0.59) K/uL Eos # (Auto) 0.00 (0-0.5) K/uL Baso # (Auto) 0.00 (0-0.2) K/uL Immature Gran # (Auto) 0.03 H (0.00-0.02) K/uL Sodium 136 (136-145) mmol/L Potassium 3.6 (3.5-5.1) mmol/L Chloride 102 (98-107) mmol/L Carbon Dioxide 27 (21-32) mmol/L Anion Gap 7.0 (3-11) BUN 26 H (7-18) mg/dl Creatinine 1.03 (0.6-1.4) mg/dl Est Cr Clr Drug Dosing 42.2 ml/min Est GFR ( Amer) 78.0 Est GFR (Non-Af Amer) 67.3 BUN/Creatinine Ratio 25.0 H (10-20) Glucose 134 H (70-99) mg/dl Lactate 1.9 (0.4-2.0) mmol/L Calcium 9.1 (8.5-10.1) mg/dl Total Bilirubin 1.9 H (0.2-1) mg/dl AST 35 (15-37) U/L ALT 39 (12-78) U/L Alkaline Phosphatase 101 (45-117) U/L Total Protein 8.0 (6.4-8.2) gm/dl Albumin 3.6 (3.4-5.0) gm/dl Globulin 4.4 H (2.5-4.0) gm/dl Albumin/Globulin Ratio 0.8 L (0.9-2) Lipase 167 (73-393) U/L Urine Color Urine Appearance (Clear) Urine pH (4.5-7.5) Ur Specific [place] (1.000-1.030) Urine Protein (Negative) Urine Glucose (UA) (Negative) Urine Ketones (Negative) Urine Blood (Negative) Urine Nitrite (Negative) Urine Bilirubin (Negative) Urine Urobilinogen (Negative) Ur Leukocyte Esterase (Negative) Urine WBC (Auto) (0-5) /hpf Urine RBC (Auto) (0-4) /hpf U Hyaline Cast (Auto) (0-5) /lpf U Epithel Cells (Auto) (0-5) /lpf Urine Bacteria (Auto) (Negative) COVID-19 Eval Order SARS-CoV-2, RNA, NAAT (NEGATIVE) 07/26/20 07/26/20 07/26/20 Range/Units 16:25 16:25 Unknown WBC (4.8-10.8) K/uL RBC (4.7-6.1) M/uL Hgb (14.0-18.0) g/dL Hct (42-52) % MCV (80-100) fL MCH (25-34) pg MCHC (32-36) g/dL RDW Std Deviation (36.4-46.3) fL RDW Coeff of Jillian (11.5-14.5) % Plt Count (130-400) K/uL MPV (7.4-10.4) fL Immature Gran % (Auto) % Neut % (Auto) % Lymph % (Auto) % [place] % (Auto) % Eos % (Auto) % Baso % (Auto) % Neut # (Auto) (1.4-6.5) K/uL Lymph # (Auto) (1.2-3.4) K/uL [place] # (Auto) (0.11-0.59) K/uL Eos # (Auto) (0-0.5) K/uL Baso # (Auto) (0-0.2) K/uL Immature Gran # (Auto) (0.00-0.02) K/uL Sodium (136-145) mmol/L Potassium (3.5-5.1) mmol/L Chloride (98-107) mmol/L Carbon Dioxide (21-32) mmol/L Anion Gap (3-11) BUN (7-18) mg/dl Creatinine (0.6-1.4) mg/dl Est Cr Clr Drug Dosing ml/min Est GFR ( Amer) Est GFR (Non-Af Amer) BUN/Creatinine Ratio (10-20) Glucose (70-99) mg/dl Lactate (0.4-2.0) mmol/L Calcium (8.5-10.1) mg/dl Total Bilirubin (0.2-1) mg/dl AST (15-37) U/L ALT (12-78) U/L Alkaline Phosphatase (45-117) U/L Total Protein (6.4-8.2) gm/dl Albumin (3.4-5.0) gm/dl Globulin (2.5-4.0) gm/dl Albumin/Globulin Ratio (0.9-2) Lipase (73-393) U/L Urine Color Yellow Urine Appearance Clear (Clear) Urine pH 6.0 (4.5-7.5) Ur Specific [place] 1.042 H (1.000-1.030) Urine Protein Negative (Negative) Urine Glucose (UA) Negative (Negative) Urine Ketones Negative (Negative) Urine Blood 2+ H (Negative) Urine Nitrite Negative (Negative) Urine Bilirubin Negative (Negative) Urine Urobilinogen Negative (Negative) Ur Leukocyte Esterase Negative (Negative) Urine WBC (Auto) 1-5 (0-5) /hpf Urine RBC (Auto) 5-10 H (0-4) /hpf U Hyaline Cast (Auto) 0 (0-5) /lpf U Epithel Cells (Auto) 0-5 (0-5) /lpf Urine Bacteria (Auto) Negative (Negative) COVID-19 Eval Order Covid19 IDNow atMLAC SARS-CoV-2, RNA, NAAT NEGATIVE (NEGATIVE) Administered Medications Discontinued Medications Sodium Chloride (Nss 1000ml) 1,000 mls @ 999 mls/hr IV .Q1H1M ONE Stop: 07/26/20 15:04 Last Infusion: 07/26/20 16:19 Dose: 0 mls/hr Documented by: [id number] Admin: 07/26/20 14:23 Dose: 999 mls/hr Documented by: [id number] Piperacillin Sod/Tazobactam Sod (Zosyn) 4.5 gm in 120 mls @ 240 mls/hr IV NOW ONE Stop: 07/26/20 16:18 Last Admin: 07/26/20 17:23 Dose: 240 mls/hr Documented by: [id number] Ioversol (Ioversol 100ml) 93 ml IV ONCE ONE Stop: 07/26/20 15:05 Last Admin: 07/26/20 15:04 Dose: 93 ml Documented by: [id number] Discharge Plan Visit Data Chief Complaint: Abdominal Pain Stated Complaint: LOWER PELVIC PAIN, VOMITING, REF BY DR. SOSA ED Provider: Milind Odom Discharge Problem: Sepsis, Diverticulitis of colon with perforation, Abdominal pain Discharge Instructions Interventions: ED Discharge Assessment Last Done: 07/26/20 17:27 Forms Stand Alone Forms: My [facility] [employer] Prescriptions Prescriptions: No Action mirtazapine [Remeron] 15 mg tablet 15 mg PO HS RF: 0 alprazolam [Xanax] 0.5 mg Tablet 0.5 mg PO TID PRN (Reason: Anxiety) RF: 0 omega 4-zqr-pfh-fish oil [Fish Oil] 1,000 mg (120 mg-180 mg) Capsule 1,000 mg PO QAM RF: 0 aspirin 81 mg Tablet,Delayed Release (Dr/Ec) 81 mg PO QAM RF: 0 tamsulosin [Flomax] 0.4 mg capsule 0.4 mg PO QPM RF: 0 Mucinex Cold,Flu,Sore Throat 10-20-650 mg/20 mL Liquid 20 ml PO BID PRN (Reason: Congestion) RF: 0 magnesium 500 mg Tablet 500 mg PO QAM RF: 0 polyethylene glycol 3350 [Miralax] 17 gram Powder In Packet 17 g PO DAILY RF: 0 dicyclomine 20 mg tablet 20 mg PO TID PRN (Reason: abdominal pain) Qty: 30 RF: 0 cholecalciferol (vitamin D3) [Vitamin D3] 125 mcg (5,000 unit) Tablet 125 mcg PO QAM RF: 0 dutasteride 0.5 mg capsule 0.5 mg PO DAILY RF: 0 Referrals Referrals: Elder Fleming MD [Primary Care Provider] - Discharge Problem: Sepsis Qualifiers: Sepsis type: sepsis due to unspecified organism Sepsis acute organ dysfunction status: unspecified Qualified Code(s): A41.9 - Sepsis, unspecified organism Diverticulitis of colon with perforation Qualifiers: Diverticulitis bleeding: unspecified bleeding status Qualified Code(s): K57.20 - Diverticulitis of large intestine with perforation and abscess without bleeding Abdominal pain Qualifiers: Abdominal location: unspecified location Qualified Code(s): R10.9 - Unspecified abdominal pain
[2020-07-26 14:10] LABS: Albumin Globulin Ratio 0.8 (0.9-2); Bilirubin,Total 1.9 mg/dl (0.2-1); Globulin 4.4 gm/dl (2.5-4.0)
[2020-07-26] MEDS ORDERED: IOVERSOL 100ml IV ONE (15:04)
--- NOTE | 2020-07-26 15:33 | CT Scan Report ---
CT abd pelvis IV con only CLINICAL HISTORY: lower abd pain COMPARISON STUDY: 07/20/2018, PET CT scan dated 04/18/2020 TECHNIQUE: Patient was scanned in a dynamic helical fashion during intravenous administration of 93 c c of Optiray 320 A dose lowering technique was utilized adhering to the principles of ALARA. CT DOSE: 510.91 mGycm FINDINGS: Lower chest: There are bibasilar opacities likely atelectatic. There is mild right lower lobe bronchi ectasis. There is a postinflammatory granuloma within the left lower lobe Liver: There is pneumobilia. There is an indwelling biliary enteric stent. No focal hepatic masses ar e visualized. The hepatic and portal veins appear patent. Gallbladder: Surgically absent Spleen: Surgically absent. Within the left upper quadrant, there are clustered nodules measuring up t o 15 mm in diameter. These remain similar to the prior PET CT scan. These may be postsurgical as they were not FDG avid. Pancreas: The patient is status post a distal pancreatectomy. There is dilatation of the remaining pa ncreatic duct which measures 6 mm. There is a 35 mm septated cystic lesion in the region the arcadio he patis. This results in mass effect on the portal vein. This could represent necrotic lymphadenopathy or cystic neoplasm. Adrenal glands: Unremarkable. Kidneys: There is symmetric renal cortical enhancement. The kidneys are normal in size without hydron ephrosis. Bowel: There are no transition zones to indicate bowel obstruction. There is colonic diverticulosis. There is infiltration of the perisigmoid fat suggestive of diverticulitis. There are droplets of extr aluminal gas consistent with a microperforation. There are no fluid collections to indicate a drainab le abscess.. Peritoneum: There is minimal free pelvic fluid. Vasculature: Atheromatous changes are present with the abdominal aorta. There is no evidence of aneur ysm. Adenopathy: There are borderline enlarged aortic caval lymph nodes. These appear larger than on the p rior PET CT scan. Pelvic viscera: There is marked prostatomegaly. Skeletal structures: Postsurgical changes are present within the spine. IMPRESSION: 1. Acute diverticulitis with evidence of a microperforation with extraluminal mesenteric gas. There a re no fluid collections to indicate a drainable abscess 2. Postsurgical changes of a partial pancreatectomy splenectomy and cholecystectomy 3. Indwelling biliary enteric stent with pneumobilia 4. Pathologic aortocaval adenopathy suspicious for metastatic disease 5. Pancreatic ductal dilatation 6. 35 mm septated cystic lesion in the region of the arcadio hepatis. This could represent necrotic lym phadenopathy or cystic neoplasm ACT 112: Negative or not required by law. Electronically signed by: Jarrett Hayes M.D. 07/26/2020 3:32 PM
[2020-07-26] MEDS ORDERED: PIPERACILL/TAZOBAC CONSULT ACTIVE PRN ×2 (15:49→19:04)
[2020-07-26] MEDS ORDERED: PIPERACILLIN/TAZOBACTAM 4.5 GM/120 ML BAG IV ONE (15:49)
[2020-07-26 16:09] LABS: Appearance Urine Clear (Clear); Bacteria Urine Automated Negative (Negative); Bilirubin Urine Negative (Negative); Blood Urine 2+ (Negative); Cast Urine Automated 0 /lpf (0-5); Color Urine Yellow; Epithelial Cell Urine Auto 0-5 /lpf (0-5); Glucose Urine UA Negative (Negative); Ketones Urine Negative (Negative); Leukocyte Esterase Urine Negative (Negative); Nitrite Urine Negative (Negative); Protein Urine Negative (Negative); Specific Gravity Urine 1.042 (1.000-1.030); Urobilinogen Urine Negative (Negative)
--- NOTE | 2020-07-26 16:19 | Surgery Consultation ---
Date of Consultation July 26, 2020 Assessment & Plan (1) Diverticulitis of colon with perforation: This is an 84yM with a PMH of pancreatic ca, s/p cholecystectomy, splenectomy, and partial pancreatic resection who presents to the [facility] ED on 07/26/20 with complaints of lower abdominal pain. Workup in the ER revealed a WBC of [address] scan findings consistent with acute diverticulitis with evidence of a microperforation with extraluminal mesenteric gas. There are no fluid collections to indicate a drainable abscess. On examination patient is tender to palpation in the bilateral lower quadrants. Patient is on chemo currently for his pancreatic ca and has a history of multiple abdominal surgeries as above including a ventral and spigelian hernia repair with mesh of recent. We will trial a course of conservative management for his diverticulitis with NPO and IVF for bowel rest and start him on IV abx. Pt seen and examined with Dr. Perkins. Supervising Physician Co-Signing Physician Notes Patient seen and examined, labs and imaging reviewed, agree with above. Patient well-known to me from laparoscopic assisted ventral hernia repair and open spigelian hernia repair back in February. He has done well since that surgery, however unfortunately in June he was diagnosed with recurrence of his pancreatic cancer and received his first chemotherapy treatment on Thursday. He felt weak over the course of the past 1 to 2 days, and then developed abdominal pain. CT scan today showed likely diverticulitis with microperforation, no abscess. On exam he is afebrile with stable vitals. His abdomen is soft, moderately distended, tender to palpation in the left lower quadrant, no hernias present. He has a leukocytosis to 15,000, I personally reviewed the CT and see inflammation of the sigmoid colon around some diverticulum along with some flecks of air tracking into the mesentery. This most likely represents diverticulitis with microperforation. At this point the patient did recently receive chemotherapy and has had multiple abdominal surgeries along with recurrence of his biliary cancer which makes him a very high risk patient. At this time we will treat him nonoperatively with antibiotics and bowel rest. If he does not improve he may need transfer to a tertiary center. We also had a long discussion with the who relayed to us that he has essentially a terminal diagnosis. I recommend that palliative care be consulted to discuss goals of care with her. At this point she does not think that she would want a surgery for him if that became necessary. Surgery will continue to follow, call with questions or concerns. History of Present Illness History of Present Illness This is an 84yM with a PMH of pancreatic ca, s/p cholecystectomy, splenectomy, and partial pancreatic resection who presents to the [facility] ED on 07/26/20 with complaints of lower abdominal pain. Patient's history is obtained primarily from his as patient has a history of dementia. Of note the patient had a chemotherapy session this past Thursday for his pancreatic ca. She reports patient has been constipated since Thursday, although did have a small BM today. Today she noticed the patient seemed dizzy & fidgety in addition to complaining of some lower abdominal discomfort. Due to symptoms he came into the ER for further evaluation. En route to the ER he did have a bout of emesis. A CT a/p was performed that revealed acute diverticulitis with evidence of a microperforation with extraluminal mesenteric gas. There are no fluid collections to indicate a drainable abscess. WBC 15. Denies any fevers/chills, chest pain or shortness of breath. Last colonoscopy was <5 years ago they report was unremarkable. Allergies Allergy/AdvReac Type Severity Reaction Status Date / Time Druuyak-Fpj-Dvk Reductase Allergy Mild myalgias Verified 07/26/20 14:56 Inhibitor morphine AdvReac Mild combative, Verified 07/26/20 14:56 N/V Home Medications Medication Instructions Recorded Confirmed Type alprazolam [Xanax] 0.5 mg PO TID PRN 06/02/18 07/26/20 History omega 3-gaj-mho-fish oil [Fish Oil] 1,000 mg PO QAM 06/02/18 07/26/20 History aspirin 81 mg PO QAM 07/20/18 07/26/20 History mirtazapine 15 mg tablet 15 mg PO HS 01/30/20 07/26/20 History cholecalciferol (vitamin D3) 125 mcg PO QAM 02/10/20 07/26/20 History [Vitamin D3] Mucinex Cold,Flu,Sore Throat 20 ml PO BID PRN 06/22/20 07/26/20 History magnesium 500 mg PO QAM 06/22/20 07/26/20 History tamsulosin [Flomax] 0.4 mg PO QPM 06/22/20 07/26/20 History dicyclomine 20 mg PO TID PRN #30 tab NS 06/25/20 07/26/20 Rx polyethylene glycol 3350 [Miralax] 17 g PO DAILY 06/25/20 07/26/20 History dutasteride 0.5 mg PO DAILY 07/26/20 07/26/20 History Patient History Medical History Anemia Aneurysm of aorta ascending aorta (follows with Dr. 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) Anxiety Cancer pancreas (dx 2018) s/p resection/chemo/xrt, currently under surveillance by oncology Cleft palate S/p revision of nose surgeries for cleft lip and palate per records Dementia Enlarged prostate GERD (gastroesophageal reflux disease) Hyperlipidemia Hypertension no meds Memory changes Pulmonary nodule denies Surgical History H/O esophagogastroduodenoscopy H/O prostate biopsy History of arthroscopy of shoulder History of back surgery Lumbar spine fusion, 1997 History of dental surgery dental implants placed History of incisional hernia repair lap incisional hernia repair, open left spigelian hernia repair: 02/22/2020: Grade view 1, MAC #3, ETT 7.0 at [facility] History of laparotomy partial removal pancreas/gallbladder/spleen (08/2018) History of repair of right rotator cuff History of reverse total replacement of right shoulder joint History of surgery Multiple surgeries to revise nose for cleft lip/palate Hx of appendectomy age 8 Hx of cataract surgery R/L Hx of colonoscopy S/P cholecystectomy Family History Brother Prostate cancer Heart disease Kidney stones Father Cancer Sister Breast cancer Other Alzheimer disease No family history of adverse response to anesthesia Social History Smoking Status: Never smoker Second Hand Exposure: No; Hx Alcohol Use: No Hx Substance Use: No Preferred Language: [place] Island[place] Communication Ability: Effective Visual Impairment: No Limitations Hearing Ability: Hard of Hearing Automatic Maintainer Required: No Beliefs That Will Affect Care: None marital status: Current Living Situation: Spouse Feels Safe at Home: Yes Assistive Devices: Denture - Lower, Glasses and Hearing Aid - Bilateral Review of Systems Constitutional: no fever and no chills Respiratory: no dyspnea Cardiovascular: no chest pain Gastrointestinal: + abdominal pain (lower abdominal pain bilaterally), + nausea, + vomiting and + constipation Physical Exam Physical Exam: awake Respiratory: normal respiratory effort Gastrointestinal (Abdomen): Inspection/Auscultation: + abdominal surgical scar (midline scar and LLQ scars noted healing well) Percussion/Palpation: + abdomen tender (ttp bilateral lower abdomen) and abdomen soft Results & Data ([facility]) Vital Signs (Past 12 Hours) Vital Signs Temp Pulse Resp BP Pulse Ox 07/26/20 15:13 93 H 20 92 07/26/20 14:30 96 H 22 135/73 92 07/26/20 14:22 100 H 20 136/74 92 07/26/20 14:00 98 H 22 92 07/26/20 13:51 92 07/26/20 13:32 103 H 20 93 07/26/20 12:59 36.6 C 110 H 18 154/[address] abd pelvis IV con only CLINICAL HISTORY: lower abd pain COMPARISON STUDY: 07/20/2018, PET CT scan dated 04/18/2020 TECHNIQUE: Patient was scanned in a dynamic helical fashion during intravenous administration of 93 cc of Optiray 320 A dose lowering technique was utilized adhering to the principles of ALARA. CT DOSE: 510.91 mGycm FINDINGS: Lower chest: There are bibasilar opacities likely atelectatic. There is mild right lower lobe bronchiectasis. There is a postinflammatory granuloma within the left lower lobe Liver: There is pneumobilia. There is an indwelling biliary enteric stent. No focal hepatic masses are visualized. The hepatic and portal veins appear patent. Gallbladder: Surgically absent Spleen: Surgically absent. Within the left upper quadrant, there are clustered nodules measuring up to 15 mm in diameter. These remain similar to the prior PET CT scan. These may be postsurgical as they were not FDG avid. Pancreas: The patient is status post a distal pancreatectomy. There is dilatation of the remaining pancreatic duct which measures 6 mm. There is a 35 mm septated cystic lesion in the region the arcadio hepatis. This results in mass effect on the portal vein. This could represent necrotic lymphadenopathy or cystic neoplasm. Adrenal glands: Unremarkable. Kidneys: There is symmetric renal cortical enhancement. The kidneys are normal in size without hydronephrosis. Bowel: There are no transition zones to indicate bowel obstruction. There is colonic diverticulosis. There is infiltration of the perisigmoid fat suggestive of diverticulitis. There are droplets of extraluminal gas consistent with a microperforation. There are no fluid collections to indicate a drainable abscess.. Peritoneum: There is minimal free pelvic fluid. Vasculature: Atheromatous changes are present with the abdominal aorta. There is no evidence of aneurysm. Adenopathy: There are borderline enlarged aortic caval lymph nodes. These appear larger than on the prior PET CT scan. Pelvic viscera: There is marked prostatomegaly. Skeletal structures: Postsurgical changes are present within the spine. IMPRESSION: 1. Acute diverticulitis with evidence of a microperforation with extraluminal mesenteric gas. There are no fluid collections to indicate a drainable abscess 2. Postsurgical changes of a partial pancreatectomy splenectomy and chol ecystectomy 3. Indwelling biliary enteric stent with pneumobilia 4. Pathologic aortocaval adenopathy suspicious for metastatic disease 5. Pancreatic ductal dilatation 6. 35 mm septated cystic lesion in the region of the arcadio hepatis. This could represent necrotic lymphadenopathy or cystic neoplasm ACT 112: Negative or not required by law. Electronically signed by: Jarrett Hayes M.D. 07/26/2020 3:32 PM PG Care Time/CCT Total # of Minutes Spent Total Time Spent with Patient: Total time spent is greater than 50% in coordination of care (as documented) at patient's floor/unit and/or counseling patient: Coding Level of Care Code 05941 Initial Inpt Care Lvl 1 Diagnoses Diverticulitis of colon with perforation K57.20
--- NOTE | 2020-07-26 16:39 | History & Physical Report ---
Date of Service July 26, 2020 Assessment & Plan (1) Sepsis: (2) Diverticulitis of colon with perforation: This is a 84 yr old M who has a significant pmh of pancreatic ca s/p resection and splenectomy 08/24 s/p chemo and SBRT now with recurrence 06/2020. 06/25/20 He underwent ERCP with bilary stent placement secondary to severe stricture felt likely malignant. Also liver and adenopathy related metatasis noted as well. He has been following Dr. Gallagher and underwent his first round of chemo 07/23 Gemcitabine and Abraxane. This morning he woke up with abdominal pain and feeling sick to stomach. Evaluation patient met sepsis criteria per current CMS guidelines with tachycardia, leukocytosis and documented acute diverticulitis with microperforation on CT scan. He received 1 L of IVF in ED as well as broad-spectrum IV Zosyn. Will obtain lactic acid and blood cultures. Admit to med telemetry Consult surgery N.p.o. and bowel rest Gentle IVF 100 cc/h Hold medications (3) Pancreatic adenocarcinoma: Pancreatic tail adeno CA, status post resection including splenectomy done 08/2018. [address] scan revealed 1.8 cm right lobe lesion treated effectively with SBRT 02/2019. Also received systemic chemotherapy with gemcitabine and Abraxane 12/01-02/2019. Repeat CA 19-9 60 on 04/13/2020. Presented with obstructive jaundice 06/2020 status post biliary stent placement by Dr. Palmer. Biopsy from the periportal lymph node showed metastatic adenocarcinoma and several pancreatic primary. CT abdomen pelvis today Shows 35 mm septated cystic lesion on the right arcadio hepatis concerning for necrotic lymphadenopathy or cystic neoplasm also pathologic aortocaval adenopathy suspicious for metastatic disease. Discussed with in detail at bedside and was given overall poor prognosis from oncology due to aggressiveness of cancer, "we do not know where it always yet." We discussed getting palliative care involved to educate her on options moving forward in regards to palliative care versus hospice. She is interested to understand more information about these services so she can better serve her and assist her in making appropriate decisions based on circumstances. Patient is DNR/DNI. (4) Enlarged prostate: on adovart and flomax as outpt hold while NPO DNR/DNI Disposition: admit to [facility] tele Follow up: PCP Dr. Fleming upon discharge as well as follow up with Dr. Gallagher Pt was seen and examined in collaboration with Dr. Valles, please see addendum History of Present Illness Chief Complaint: abdominal pain and sick to stomach x 1 day. Primary Care Provider: Elder Fleming MD This is a 84 yr old M who has a significant pmh of pancreatic ca s/p resection and splenectomy 08/24 s/p chemo and SBRT now with recurrence 06/2020. 06/25/20 He underwent ERCP with bilary stent placement secondary to severe stricture felt likely malignant. Also liver and adenopathy related metatasis noted as well. He has been following Dr. Gallagher and underwent his first round of chemo 07/23 Gemcitabine and Abraxane. This morning he woke up with abdominal pain and feeling sick to stomach. He has been constipation and last decent BM was 4 days ago. En route to ED he did have episode of yellow emesis which helped his abd ominal pain. He denies recent f/c/s, dizziness, lightheaded, chest pain, sob, diarrhea, melena or hematochezia. His appetite has been somewhat stable despite chemo. is a bedside who has kept a log of his weights and vitals which have all been stable. He does have a dry cough,tickle in throat and occasional difficulty swallowing felt likely due to cancer. In ED he does meet Sepsis criteria due to elevated wbc and HR. CT a/p reveal Acute diverticulitis with evidence of a microperforation with extraluminal mesenteric gas with no fluid collections to indicate a drainable abscess, 2. Postsurgical changes of a partial pancreatectomy splenectomy and cholecystectomy, 3. Indwelling biliary enteric stent with pneumobilia,4. Pathologic aortocaval adenopathy suspicious for metastatic disease, 5. Pancreatic ductal dilatation, 6. 35 mm septated cystic lesion in the region of the arcadio hepatis. This could represent necrotic lymphadenopathy or cystic neoplasm. He is feeling mildly improved in ED. He received 1 L of IVF and IV zosyn in ED. Allergies Allergy/AdvReac Type Severity Reaction Status Date / Time Ihgshle-Kpd-Udc Reductase Allergy Mild myalgias Verified 07/26/20 14:56 Inhibitor morphine AdvReac Mild combative, Verified 07/26/20 14:56 N/V Home Medications Medication Instructions Recorded Confirmed Type alprazolam [Xanax] 0.5 mg PO TID PRN 06/02/18 07/26/20 History omega 5-xre-ibz-fish oil [Fish Oil] 1,000 mg PO QAM 06/02/18 07/26/20 History aspirin 81 mg PO QAM 07/20/18 07/26/20 History mirtazapine 15 mg tablet 15 mg PO HS 01/30/20 07/26/20 History cholecalciferol (vitamin D3) 125 mcg PO QAM 02/10/20 07/26/20 History [Vitamin D3] Mucinex Cold,Flu,Sore Throat 20 ml PO BID PRN 06/22/20 07/26/20 History magnesium 500 mg PO QAM 06/22/20 07/26/20 History tamsulosin [Flomax] 0.4 mg PO QPM 06/22/20 07/26/20 History dicyclomine 20 mg PO TID PRN #30 tab NS 06/25/20 07/26/20 Rx polyethylene glycol 3350 [Miralax] 17 g PO DAILY 06/25/20 07/26/20 History dutasteride 0.5 mg PO DAILY 07/26/20 07/26/20 History Past Med/Surg History Medical History Anemia Aneurysm of aorta ascending aorta (follows with Dr. 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 3.9cm) Anxiety Cancer pancreas (dx 2018) s/p resection/chemo/xrt, currently under surveillance by oncology Cleft palate S/p revision of nose surgeries for cleft lip and palate per records Dementia Enlarged prostate GERD (gastroesophageal reflux disease) Hyperlipidemia Hypertension no meds Memory changes Pulmonary nodule denies Surgical History H/O esophagogastroduodenoscopy H/O prostate biopsy History of arthroscopy of shoulder History of back surgery Lumbar spine fusion, 1997 History of dental surgery dental implants placed History of incisional hernia repair lap incisional hernia repair, open left spigelian hernia repair: 02/22/2020: Grade view 1, MAC #3, ETT 7.0 at [facility] History of laparotomy partial removal pancreas/gallbladder/spleen (08/2018) History of repair of right rotator cuff History of reverse total replacement of right shoulder joint History of surgery Multiple surgeries to revise nose for cleft lip/palate Hx of appendectomy age 8 Hx of cataract surgery R/L Hx of colonoscopy S/P cholecystectomy Family History Brother Prostate cancer Heart disease Kidney stones Father Cancer Sister Breast cancer Other Alzheimer disease No family history of adverse response to anesthesia Social History Smoking Status: Never smoker Second Hand Exposure: No; Hx Alcohol Use: No Hx Substance Use: No Preferred Language: Latvian Communication Ability: Effective Visual Impairment: No Limitations Hearing Ability: Hard of Hearing [place] Required: No Beliefs That Will Affect Care: None marital status: Current Living Situation: Spouse Other Information That Helps Us Care for You: No Feels Safe at Home: Yes Safety Concerns: Feels Safe At This Time Assistive Devices: Cane Review of Systems Review of Systems: All systems reviewed & are unremarkable except as noted in HPI & below Physical Exam Physical Exam: Constitutional: WD/WN, elderly, male, vitals as above, NAD, sitting up in bed, pleasant, conversing easily Head: Normocephalic, Atraumatic Eyes: PERRL, conjunctivae normal, anicteric sclerae ENMT: external ear and nose normal, oropharynx normal Neck: trachea midline, no thyromegaly normal visual inspection Respiratory: normal respiratory effort, lungs clear to auscultation, no wheeze, rales, rhonchi. Normal insp/exp effort, no accessory muscle use Cardiovascular: RRR, no murmur, no edema Vessels: no JVD or carotid bruit Chest: normal inspection of chest Abdomen: hypoactive bowel sounds, soft, tender to palpation R and L LQ, rebound to LLQ, no hepatosplenomegaly, multiple abdominal scars noted Musculoskeletal: no cyanosis or clubbing, extremities motor strength 5/5 Skin: no rashes, warm and dry normal turgor Neurologic: PERRL, EOMI, accommodation nl, no face palsy, no dysarthria CN's II-XI intact bilaterally and moves all extremities Psychiatric: A+Ox3, euthymic affect : deferred Results & Data Results & Data ([facility]) Vital Signs (Past 12 Hours) Vital Signs Temp Pulse Resp BP Pulse Ox 07/26/20 15:13 93 H 20 92 07/26/20 14:30 96 H 22 135/73 92 07/26/20 14:22 100 H 20 136/74 92 07/26/20 14:00 98 H 22 92 07/26/20 13:51 92 07/26/20 13:32 103 H 20 93 07/26/20 12:59 36.6 C 110 H 18 154/[address] a/p: Acute diverticulitis with evidence of a microperforation with extraluminal mesenteric gas. There are no fluid collections to indicate a drainable abscess 2. Postsurgical changes of a partial pancreatectomy splenectomy and cholecystectomy 3. Indwelling biliary enteric stent with pneumobilia 4. Pathologic aortocaval adenopathy suspicious for metastatic disease 5. Pancreatic ductal dilatation 6. 35 mm septated cystic lesion in the region of the arcadio hepatis. This could represent necrotic lymphadenopathy or cystic neoplasm Medications Administered Discontinued Medications Sodium Chloride (Nss 1000ml) 1,000 mls @ 999 mls/hr IV .Q1H1M ONE Stop: 07/26/20 15:04 Last Infusion: 07/26/20 16:19 Dose: 0 mls/hr Documented by: [id number] Admin: 07/26/20 14:23 Dose: 999 mls/hr Documented by: [id number] Ioversol (Ioversol 100ml) 93 ml IV ONCE ONE Stop: 07/26/20 15:05 Last Admin: 07/26/20 15:04 Dose: 93 ml Documented by: [id number] COVID-19 Results Results COVID-19 Adm Lab Results: RBC 4.24 M/uL (4.7-6.1) L 07/26/20 WBC 15.37 K/uL (4.8-10.8) H 07/26/20 Hgb 13.2 g/dL (14.0-18.0) L 07/26/20 Hct 39.1 % (42-52) L 07/26/20 Plt Count 380 K/uL (130-400) 07/26/20 Neutrophils (%) (Auto) 95.7 % 07/26/20 Lymphocytes (%) (Auto) 3.7 % 07/26/20 Monocytes # (Auto) 0.06 K/uL (0.11-0.59) L 07/26/20 Eosinophils # (Auto) 0.00 K/uL (0-0.5) 07/26/20 Immature Granulocyte % (Auto) 0.2 % 07/26/20 Neutrophils # (Auto) 14.71 K/uL (1.4-6.5) H 07/26/20 Lymphocytes # (Auto) 0.57 K/uL (1.2-3.4) L 07/26/20 Monocytes # (Auto) 0.06 K/uL (0.11-0.59) L 07/26/20 Eosinophils # (Auto) 0.00 K/uL (0-0.5) 07/26/20 Basophils # (Auto) 0.00 K/uL (0-0.2) 07/26/20 Immature Granulocyte # (Auto) 0.03 K/uL (0.00-0.02) H 07/26/20 Na 136 mmol/L (136-145) 07/26/20 K 3.6 mmol/L (3.5-5.1) 07/26/20 Cl 102 mmol/L (98-107) 07/26/20 CO2 27 mmol/L (21-32) 07/26/20 Anion Gap 7.0 (3-11) 07/26/20 BUN 26 mg/dl (7-18) H 07/26/20 Creatinine 1.03 mg/dl (0.6-1.4) 07/26/20 BUN/Creatinine Ratio 25.0 (10-20) H 07/26/20 Glucose Level 134 mg/dl (70-99) H 07/26/20 Ca 9.1 mg/dl (8.5-10.1) 07/26/20 Total Bilirubin 1.9 mg/dl (0.2-1) H 07/26/20 AST/SGOT 35 U/L (15-37) 07/26/20 ALT/SGPT 39 U/L (12-78) 07/26/20 Alkaline Phosphatase 101 U/L (45-117) 07/26/20 Total Protein 8.0 gm/dl (6.4-8.2) 07/26/20 Albumin 3.6 gm/dl (3.4-5.0) 07/26/20 Globulin 4.4 gm/dl (2.5-4.0) H 07/26/20 Albumin/Globulin Ratio 0.8 (0.9-2) L 07/26/20 SARS-CoV-2, RNA, NAAT NEGATIVE (NEGATIVE) 07/26/20 Code Status & VTE Plan Code Status Full Code VTE Prophylaxis Plan VTE Prophylaxis will be ordered: Yes Supervising Physician Co-Signing Physician Notes 84-year-old man with history of pancreatic cancer status post resection and splenectomy status post chemo and SBRT now with recurrence last month, status post ERCP with biliary stent placement due to severe stricture last month with liver and lymph node mets who started chemo 3 days ago [gemcitabine and Abraxane] who presents to the hospital today for abdominal pain, nausea, episode of vomiting on presentation, constipation, feeling unsteady at home per . History as detailed above Physical exam is notable for elderly man, in no obvious distress, right and left lower quadrant tenderness, soft abdomen, no rebound tenderness Lab work notable for leukocytosis of 15,000 [with neutrophil predominance], bilirubin of 1.9. CT abdomen and pelvis show acute diverticulitis with microperforation with extra luminal mesenteric gas, without fluid collection. Other findings include biliary enteric stent with pneumobilia, 35 mm cystic lesion in the arcadio hepatis -Sepsis secondary to acute complicated diverticulitis Per CMS guidelines, patient does not sepsis criteria with leukocytosis, tachycardia and source of infection. Lactate is 1.9. Though bilirubin is 1.9, I do not think that this represented any signs of end organ damage. This is likely related to recent biliary stent placement plus or minus liver mets. Continue antibiotics with Zosyn Follow-up blood cultures Bowel rest. Continue IV fluids Management options with patient and the was at bedside. We will manage medically for now with surgery on board. If condition worsens, may need surgical intervention. Discussed case with Dr. Perkins as well. If surgery is needed, due to complicated medical and surgical history with recent chemo, patient may need to be transferred for surgery. Per , patient is DNR. She is open to discussing with palliative care for ongoing goals of care. Palliative consult ordered Hold pharmacological DVT prophylaxis for now in case surgery is needed. SCDs for today Other plans as detailed above
[2020-07-26] MEDS ORDERED: SODIUM CHLORIDE 0.9% 1000ML 500 ML IV ONE (18:45)
[2020-07-26] MEDS ORDERED: ACETAMINOPHEN 325 MG TAB PO STA (18:45)
[2020-07-26] MEDS ORDERED: POLYETHYLENE (MIRALAX) 17 GM PACK PO PRN (19:04)
[2020-07-26] MEDS ORDERED: ALUMINUM/MAGNESIUM SUSP 30 ML UDC PO PRN (19:04)
[2020-07-26] MEDS ORDERED: ONDANSETRON INJ 2 MG/ML 2 ML VIAL IV PRN (19:04)
[2020-07-26] MEDS ORDERED: MAGNESIUM HYDROXIDE SUSP 30 ML UDC PO PRN (19:04)
[2020-07-26] MEDS ORDERED: ACETAMINOPHEN 325 MG TAB PO PRN (19:04)
[2020-07-26] MEDS ORDERED: ACETAMINOPHEN 65 ML IV PRN (19:34)
[2020-07-26] MEDS: SODIUM CHLORIDE 0.9% 1000ML 1,000 ML IV SCH (20:09)
[2020-07-26] MEDS: PIPERACILLIN/TAZOBACTAM 3.375 GM in DEXTROSE 5% 100 ML IV SCH (23:45)
[2020-07-27] MEDS: SODIUM CHLORIDE 0.9% 1000ML 1,000 ML IV SCH ×2 (03:44→14:12)
[2020-07-27 07:34] LABS: Basophils # (auto) 0.01 K/uL (0-0.2); Basophils % (auto) 0.1 %; Hematocrit (blood only) 33.7 % (42-52); Hemoglobin 11.2 g/dL (14.0-18.0); Immature Granulocytes # (auto) 0.07 K/uL (0.00-0.02); Immature Granulocytes % (auto) 0.4 %; Lymphocytes # (auto) 0.64 K/uL (1.2-3.4); Lymphocytes % (auto) 4.1 %; Mean Corpuscular Hemoglobin 30.9 pg (25-34); Mean Corpuscular Hgb Conc 33.2 g/dL (32-36); Mean Corpuscular Volume 93.1 fL (80-100); Monocytes # (auto) 0.09 K/uL (0.11-0.59); Monocytes % (auto) 0.6 %; Neutrophils # (auto) 14.82 K/uL (1.4-6.5); Neutrophils % (auto) 94.8 %; Platelet Count 276 K/uL (130-400); RDW Coefficient of Variation 13.9 % (11.5-14.5); RDW Standard Deviation 47.7 fL (36.4-46.3); Red Blood Count 3.62 M/uL (4.7-6.1); White Blood Count 15.63 K/uL (4.8-10.8)
[2020-07-27] MEDS: PIPERACILLIN/TAZOBACTAM 3.375 GM in DEXTROSE 5% 100 ML IV SCH ×3 (07:43→23:58)
[2020-07-27 07:53] LABS: Albumin Level 2.4 gm/dl (3.4-5.0); BUN Creatinine Ratio 25.6 (10-20); Calcium 8.7 mg/dl (8.5-10.1); Creatinine Clr Calc Pharmacy 58.3 ml/min; Est GFR (Non-African American) 81.1; Potassium 3.8 mmol/L (3.5-5.1)
[2020-07-27 08:08] LABS: Albumin Globulin Ratio 0.6 (0.9-2); Bilirubin,Total 1.6 mg/dl (0.2-1); Globulin 3.8 gm/dl (2.5-4.0); Total Protein 6.2 gm/dl (6.4-8.2)
--- NOTE | 2020-07-27 11:15 | Surgery Progress Note ---
Date of Service July 27, 2020 Assessment & Plan (1) Diverticulitis of colon with perforation: Patient with history of pancreatic ca with multiple abdominal surgeries here with diverticulitis with microperforation WBC 15 and patient with low grade temps overnight (tmax 39.2C at 11pm) Still having some lower abdominal pain Continue on IV abx Would continue NPO with ice for today until improvement in symptoms and WBC#/fevers No plans for surgical intervention at this time [facility] surgery covering for the weekend Admission and Anticipated Discharge Date Admission Date: July 26, 2020 Supervising Physician Co-Signing Physician Notes Patient seen and examined, labs reviewed, agree with above. 84-year-old male on chemotherapy for recurrence of pancreatic carcinoma and history of multiple abdominal surgeries, admitted with suspected diverticulitis with small amount of pneumoperitoneum. He had a fever to 39.2 overnight. On exam he is afebrile currently with stable vitals. His abdomen is soft, tender to palpation in the left lower quadrant with localized guarding. His white blood cell count remains 15,000. Continue to treat with antibiotics. At this point there is no surgical intervention indicated. If he developed an abscess he may need percutaneous drainage, and if he did require surgery his is unsure if they would want to proceed given his terminal diagnosis with his recurrence of his cancer. We will keep him n.p.o. for today and continue IV antibiotics. If his symptoms start to improve and his white blood cell count decreases with a normalizing fever curve and consider clear liquids tomorrow. Continue to recommend palliative care consult. Dr. Omalley covering over the weekend, surgery will continue to follow, call with questions or concerns. Subjective Patient still has some lower abdominal pain this AM. No BM. Physical Exam Physical Exam: awake Gastrointestinal (Abdomen): Percussion/Palpation: + abdomen tender (ttp in bilateral lower abdomen) and abdomen soft Results & Data ([facility]) Vital Signs (Past 12 Hours) Vital Signs Temp Pulse Pulse Resp BP Pulse Ox 07/27/20 10:53 36.8 C 81 18 116/61 90 07/27/20 08:00 77 07/27/20 07:07 37.4 C 79 16 100/60 90 07/27/20 03:50 37.0 C 74 19 112/65 96 07/26/20 23:52 37.7 C H 07/26/20 23:12 92 PG Care Time/CCT Total # of Minutes Spent Total Time Spent with Patient: Total time spent is greater than 50% in coordination of care (as documented) at patient's floor/unit and/or counseling patient: Coding Level of Care Code 62671 Subseq Hosp Care Lvl 1 Diagnoses Diverticulitis of colon with perforation K57.20 Diverticulitis bleeding: unspecified bleeding status (1) Diverticulitis of colon with perforation Diverticulitis bleeding: unspecified bleeding status Qualified Code(s): K57.20 - Diverticulitis of large intestine with perforation and abscess without bleeding
--- NOTE | 2020-07-27 11:31 | Gastrointestinal Consultation ---
Date of Consultation July 27, 2020 Assessment & Plan (1) Diverticulitis of colon with perforation: Management of diverticulitis per surgery. 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 New 28 mm adenocarcinoma in the uncinate process despite undergoing ongoing chemotherapy. Unfortunately, pt's prognosis is poor. Would defer management of metastatic pancreatic cancer to oncology. Imaging findings and labs are reviewed. Bile duct appears non obstructed and there is no indication for MRCP or ERCP. GI will sign off. Please recall GI if needed. Present on Admission?: Yes Supervising Physician Co-Signing Physician Notes I performed a history and physical examination of the patient today, including specifically on physical exam - soft abdomen. I have discussed the patient's management with the advanced practitioner. Please refer to the nurse practitioner's note for the documented findings and plan of care. Acute complicated diverticulitis, micro perf, no eric peritonitis. Followed by surgery. If worsens then needs urgent resection. Continue ABx. Follow up with Oncology as patient. LFTs normal except bili slightly up, trending down hence stent is patent. No further input from GI at this point unless there is any change in his clinical status. Recall if needed. History of Present Illness Reason for Consultation: acute diverticulitis, pancreatic ca, biliary stent Requesting Physician: Mary Lopez PA-C Attending Physician: Greta Shore MD History of Present Illness Mr. Jl Palomo is an 84 yr old male pt of Dr. Elder Fleming with a hx of male with a hx of cleft lip post repair, GERD, BPH and pancreatic adenocarcinoma which was dx'ed Jun 2019, 1cm panc tail at that time. He underwent distal pancreatectomy. Then liver bx with mets in October 2018 and new 28mm uncinate processes pancreatic mass on EUS 07/09/20. Path was consistent with adenocarcinoma. Pt is on chemo, managed by Dr Gallagher. He presented to the ED yesterday for lower abdomen pain. On arrival, leukocytosis and CT suggestive of diverticulitis with microperforation. He was placed on Zosyn and surgery recommended conservative tx. If surgery needed, and comment that if surgery needed, he will need to be transferred. CT on arrival w/o mention of bile duct abnormalities and LFTs are normal. EUS in June with 1cm CBD post cholecystectomy but no obstruction. Allergies Allergy/AdvReac Type Severity Reaction Status Date / Time Gxziasm-Bid-Qmd Reductase Allergy Mild myalgias Verified 07/26/20 14:56 Inhibitor morphine AdvReac Mild combative, Verified 07/26/20 14:56 N/V Home Medications Medication Instructions Recorded Confirmed Type alprazolam [Xanax] 0.5 mg PO TID PRN 06/02/18 07/26/20 History omega 3-ply-twn-fish oil [Fish Oil] 1,000 mg PO QAM 06/02/18 07/26/20 History aspirin 81 mg PO QAM 07/20/18 07/26/20 History mirtazapine 15 mg tablet 15 mg PO HS 01/30/20 07/26/20 History cholecalciferol (vitamin D3) 125 mcg PO QAM 02/10/20 07/26/20 History [Vitamin D3] Mucinex Cold,Flu,Sore Throat 20 ml PO BID PRN 06/22/20 07/26/20 History magnesium 500 mg PO QAM 06/22/20 07/26/20 History tamsulosin [Flomax] 0.4 mg PO QPM 06/22/20 07/26/20 History dicyclomine 20 mg PO TID PRN #30 tab NS 06/25/20 07/26/20 Rx polyethylene glycol 3350 [Miralax] 17 g PO DAILY 06/25/20 07/26/20 History dutasteride 0.5 mg PO DAILY 07/26/20 07/26/20 History Patient History Medical History Anemia Aneurysm of aorta ascending aorta (follows with Dr. Verma; [facility]), stable per 12/13/19 CTS (4.0 X 3.9cm) Anxiety Cancer pancreas (dx 2019) s/p resection/chemo/xrt, currently under surveillance by oncology Cleft palate S/p revision of nose surgeries for cleft lip and palate per records Dementia Enlarged prostate GERD (gastroesophageal reflux disease) Hyperlipidemia Hypertension no meds Memory changes Pulmonary nodule denies Surgical History H/O esophagogastroduodenoscopy H/O prostate biopsy History of arthroscopy of shoulder History of back surgery Lumbar spine fusion, 1997 History of dental surgery dental implants placed History of incisional hernia repair lap incisional hernia repair, open left spigelian hernia repair: 02/22/2020: Grade view 1, MAC #3, ETT 7.0 at [facility] History of laparotomy partial removal pancreas/gallbladder/spleen (08/2018) History of repair of right rotator cuff History of reverse total replacement of right shoulder joint History of surgery Multiple surgeries to revise nose for cleft lip/palate Hx of appendectomy age 8 Hx of cataract surgery R/L Hx of colonoscopy S/P cholecystectomy Family History Brother Prostate cancer Heart disease Kidney stones Father Cancer Sister Breast cancer Other Alzheimer disease No family history of adverse response to anesthesia Social History Smoking Status: Never smoker Second Hand Exposure: No; Hx Alcohol Use: No Hx Substance Use: No Preferred Language: Korean Communication Ability: Impaired Visual Impairment: No Limitations Hearing Ability: Hard of Hearing Spice Blender Required: No Beliefs That Will Affect Care: None marital status: Current Living Situation: Spouse Other Information That Helps Us Care for You: No Feels Safe at Home: Yes Safety Concerns: Feels Safe At This Time Assistive Devices: Walker Review of Systems Constitutional: + chills, + weakness and + weight gain; no fever Eyes: no problem reported Ear, Nose, Mouth, Throat: no problem reported Respiratory: no cough, no chest congestion and no dyspnea Cardiovascular: no chest pain, no dyspnea and no edema Gastrointestinal: + abdominal pain (RLQ) Musculoskeletal: currently denies Integumentary: no rash and no lesions Neurologic: + unsteadiness and + confusion (mild confusion; unable to provide a detailed hx) Psychiatric: + anxiety (no signs of anxiety), + difficulty concentrating and + confusion (mild) Physical Exam Constitutional: + ill appearing (chronically), + thin, cooperative and comfortable Eyes: PERRL, conjunctivae normal, anicteric sclerae ENMT: external ear and nose normal, oropharynx normal Neck: trachea midline, no thyromegaly Respiratory: normal respiratory effort, lungs clear to auscultation Cardiovascular: RRR, no murmur, no edema Gastrointestinal (Abdomen): Inspection/Auscultation: abdomen normal to inspection; abdomen not distended Percussion/Palpation: abdomen soft; abdomen nontender Musculoskeletal: no cyanosis or clubbing, extremities motor strength 5/5 Skin: no rashes, warm and dry Neurologic: PERRL, EOMI, accommodation nl, no face palsy, no dysarthria awake and + confused (mild) Motor/Sensory: no tremor Psychiatric: Orientation: alert, oriented to person, oriented to place and cooperative Apperance: appropriately groomed Motor Behavior: n tremor Speech: normal rate/rhythm/volume of speech Lymphatic: no cervical or axillary lymphadenopathy Results & Data ([facility]) Vital Signs (Past 12 Hours) Vital Signs Temp Pulse Pulse Resp BP Pulse Ox 07/27/20 10:53 36.8 C 81 18 116/61 90 07/27/20 08:00 77 07/27/20 07:07 37.4 C 79 16 100/60 90 07/27/20 03:50 37.0 C 74 19 112/65 96 07/26/20 23:52 37.7 C H Diagnostic Findings CT abd/pelvis with IV contrast on 07/26/20: 1. Acute diverticulitis with evidence of a microperforation with extraluminal mesenteric gas. There are no fluid collections to indicate a drainable abscess 2. Postsurgical changes of a partial pancreatectomy splenectomy and cholecystectomy 3. Indwelling biliary enteric stent with pneumobilia 4. Pathologic aortocaval adenopathy suspicious for metastatic disease 5. Pancreatic ductal dilatation 6. 35 mm septated cystic lesion in the region of the arcadio hepatis. This could represent necrotic lymphadenopathy or cystic neoplasm (1) Diverticulitis of colon with perforation Diverticulitis bleeding: unspecified bleeding status Qualified Code(s): K57.20 - Diverticulitis of large intestine with perforation and abscess without bleeding
[2020-07-27] MEDS ORDERED: MoRPHine SULFATE 2 MG/ML CARP IV PRN (12:42)
--- NOTE | 2020-07-27 15:58 | Palliative Care Consultation ---
Date of Consultation July 27, 2020 Assessment & Plan (1) Abdominal pain: With diverticulitis and microperforation. He seems to be doing well. He has morphine available for pain but has not needed any thus far. Abdominal location: unspecified location Qualified Code(s): R10.9 - Unspecified abdominal pain (2) Palliative care encounter: He is anxious to go home and doesn't understand why his can't come to visit him. He has limited insight into his medical problems "They think I might have cancer". I did speak with his on the phone. She understands his current situation and he will not be pursuing any further cancer treatment. She would like to bring him home but needs help and support with his care. She has a large family and yarsani family support but is reluctant to call on them for help. I encouraged her to let them help her so that she can have breaks for her own self care. She would be interested in him having home care including fci and PT/OT, primarily for safety. We discussed home care vs hospice care. He would be eligible for hospice care at this point but would benefit from initial home care. We discussed when to transition to hospice and that home care will be able to assist her with this transition. (3) Pancreatic adenocarcinoma: (4) Sepsis: Sepsis acute organ dysfunction status: unspecified Sepsis type: sepsis due to unspecified organism Qualified Code(s): A41.9 - Sepsis, unspecified organism (5) Diverticulitis of colon with perforation: Diverticulitis bleeding: unspecified bleeding status Qualified Code(s): K57.20 - Diverticulitis of large intestine with perforation and abscess without bleeding History of Present Illness Reason for Consultation: goals of care Requesting Physician: Dr. Shore Attending Physician: Greta Shore MD History of Present Illness 84 yo gentleman with dementia who has a h/o pancreatic cancer. He had resection, splenectomy and stent placement about two years ago with subsequent chemotherapy. Unfortunately, he was found to have recurrence last month and had started palliative chemotherapy with gemcitabine and abraxane. His notes that he had significant fatigue after treatment but had otherwise been feeling ok. He developed abdominal pain and nausea and was CT showed diverticulitis with microperforation. He is feeling a bit better today and has been on antibiotic therapy. He still has some tenderness across his lower abdomen but is awake and alert, smiling and wanting to go for a walk. We have been c onsulted to assist with goals of care. Allergies Allergy/AdvReac Type Severity Reaction Status Date / Time Ynmrrka-Boh-Siz Reductase Allergy Mild myalgias Verified 07/26/20 14:56 Inhibitor morphine AdvReac Mild combative, Verified 07/26/20 14:56 N/V Home Medications Medication Instructions Recorded Confirmed Type alprazolam [Xanax] 0.5 mg PO TID PRN 06/02/18 07/26/20 History omega 8-yvo-kij-fish oil [Fish Oil] 1,000 mg PO QAM 06/02/18 07/26/20 History aspirin 81 mg PO QAM 07/20/18 07/26/20 History mirtazapine 15 mg tablet 15 mg PO HS 01/30/20 07/26/20 History cholecalciferol (vitamin D3) 125 mcg PO QAM 02/10/20 07/26/20 History [Vitamin D3] Mucinex Cold,Flu,Sore Throat 20 ml PO BID PRN 06/22/20 07/26/20 History magnesium 500 mg PO QAM 06/22/20 07/26/20 History tamsulosin [Flomax] 0.4 mg PO QPM 06/22/20 07/26/20 History dicyclomine 20 mg PO TID PRN #30 tab NS 06/25/20 07/26/20 Rx polyethylene glycol 3350 [Miralax] 17 g PO DAILY 06/25/20 07/26/20 History dutasteride 0.5 mg PO DAILY 07/26/20 07/26/20 History Patient History Medical History Anemia Aneurysm of aorta ascending aorta (follows with Dr. Verma; [facility]), stable per 12/13/19 CTS (4.0 X 3.9cm) Anxiety Cancer pancreas (dx 2019) s/p resection/chemo/xrt, currently under surveillance by oncology Cleft palate S/p revision of nose surgeries for cleft lip and palate per records Dementia Enlarged prostate GERD (gastroesophageal reflux disease) Hyperlipidemia Hypertension no meds Memory changes Pulmonary nodule denies Surgical History H/O esophagogastroduodenoscopy H/O prostate biopsy History of arthroscopy of shoulder History of back surgery Lumbar spine fusion, 1997 History of dental surgery dental implants placed History of incisional hernia repair lap incisional hernia repair, open left spigelian hernia repair: 02/22/2020: Grade view 1, MAC #3, ETT 7.0 at [facility] History of laparotomy partial removal pancreas/gallbladder/spleen (08/2018) History of repair of right rotator cuff History of reverse total replacement of right shoulder joint History of surgery Multiple surgeries to revise nose for cleft lip/palate Hx of appendectomy age 8 Hx of cataract surgery R/L Hx of colonoscopy S/P cholecystectomy Family History Brother Prostate cancer Heart disease Kidney stones Father Cancer Sister Breast cancer Other Alzheimer disease No family history of adverse response to anesthesia Social History Smoking Status: Never smoker Second Hand Exposure: No; Hx Alcohol Use: No Hx Substance Use: No Preferred Language: Luxembourgish Communication Ability: Impaired Visual Impairment: No Limitations Hearing Ability: Hard of Hearing Heavy Equipment Sales Associate Required: No Beliefs That Will Affect Care: None marital status: Current Living Situation: Spouse Other Information That Helps Us Care for You: No Feels Safe at Home: Yes Safety Concerns: Feels Safe At This Time Assistive Devices: Walker Review of Systems Review of Systems: Limited due to cognitive status Pain 1/3 Nausea 0/3 Dyspnea 0/3 Fatigue 1/3 Drowsiness 0/3 Anxiety 0/3 Palliative Performance Score 50% Physical Exam Constitutional: comfortable; no acute distress Respiratory: normal respiratory effort; no labored breathing Gastrointestinal (Abdomen): Inspection/Auscultation: abdomen not distended Percussion/Palpation: + abdomen tender (across lower abdomen) Musculoskeletal: Extremities: extremities normal to inspection Neurologic: awake and + confused Results & Data ([facility]) Vital Signs (Past 12 Hours) Vital Signs Temp Pulse Pulse Resp BP Pulse Ox 07/27/20 12:56 99.7 F H 92 H 18 118/74 93 07/27/20 10:53 98.2 F 81 18 116/61 90 07/27/20 08:00 77 07/27/20 07:07 99.3 F 79 16 100/60 90 07/27/20 03:50 98.6 F 74 19 112/65 96 PG Care Time/CCT Total # of Minutes Spent Total Time Spent with Patient: Total time spent is greater than 50% in coordination of care (as documented) at patient's floor/unit and/or counseling patient: total time spent is 60 minutes with more than 50% of time spent on goa ls of care, hospice, prognosis and family support. Coding Level of Care Code 61512 Inpt Consult Level 3 Diagnoses Abdominal pain R10.9 Abdominal location: unspecified location Palliative care encounter Z51.5 Pancreatic adenocarcinoma C25.9 Sepsis A41.9 Sepsis acute organ dysfunction status: unspecified Sepsis type: sepsis due to unspecified organism Diverticulitis of colon with perforation K57.20 Diverticulitis bleeding: unspecified bleeding status
[2020-07-27] MEDS ORDERED: HALOPERIDOL LACTATE 5 MG/ML 1 ML VIAL IM PRN (16:18)
--- NOTE | 2020-07-27 17:33 | Hospitalist Progress Note ---
Date of Service July 27, 2020 Assessment & Plan (1) Sepsis: (2) Diverticulitis of colon with perforation: This is a 84 yr old M who has a significant pmh of pancreatic ca s/p resection and splenectomy 08/24 s/p chemo and SBRT now with recurrence 06/2020. 06/25/20 He underwent ERCP with bilary stent placement secondary to severe stricture felt likely malignant. Also liver and adenopathy related metatasis noted as well. He has been following Dr. Gallagher and underwent his first round of chemo 07/23 Gemcitabine and Abraxane. This morning he woke up with abdominal pain and feeling sick to stomach. Evaluation patient met sepsis criteria per current CMS guidelines with tachycardia, leukocytosis and documented acute diverticulitis with microperforation on CT scan. Clinically improved, continue with IV fluid antibiotic with Zosyn, lactic acid level normalized vitals stable Patient input from surgery, patient is a very poor surgical candidate, given metastatic adeno CA of terminal illness diagnosis. Recommends conservative management, palliative care referral recommended. (3) Pancreatic adenocarcinoma: Pancreatic tail adeno CA, status post resection including splenectomy done 08/2018. [address] scan revealed 1.8 cm right lobe lesion treated effectively with SBRT 02/2019. Also received systemic chemotherapy with gemcitabine and Abraxane 12/01-02/2019. Repeat CA 19-9 60 on 04/13/2020. Presented with obstructive jaundice 06/2020 status post biliary stent placement by Dr. Palmer. Biopsy from the periportal lymph node showed metastatic adenocarcinoma and several pancreatic primary. CT abdomen pelvis today Shows 35 mm septated cystic lesion on the right arcadio hepatis concerning for necrotic lymphadenopathy or cystic neoplasm also pathologic aortocaval adenopathy suspicious for metastatic disease. Patient's understands poor prognosis, open discussion with palliative care Palliative care consulted, appreciate input. Patient does not have any pain or discomfort, will continue on ice chips sips of water, possible advance to clears tomorrow, plan to return home with home health versus home hospice (4) Enlarged prostate: on adovart and flomax as outpt hold while NPO DNR/DNI Disposition: Overall very poor prognosis, Plan to discharge home with home health which will be transitioned to hospice Plan of care discussed with patient's all questions answered Admission and Anticipated Discharge Date Admission Date: July 26, 2020 Subjective Follow-up visit for microperforation of diverticulitis/metastatic adeno carcinoma pancreas: Patient appears to be comfortable lying in bed says has minimum abdominal pain on left lower quadrant No fever or chills, no nausea vomiting or abdominal pain Awake and alert, oriented to person only Review of Systems Review of Systems: Unobtainable due to cognitive status Physical Exam Constitutional: WD/WN, vitals as above + ill appearing Eyes: PERRL, conjunctivae normal, anicteric sclerae ENMT: external ear and nose normal, oropharynx normal Neck: trachea midline, no thyromegaly Respiratory: normal respiratory effort, lungs clear to auscultation Cardiovascular: RRR, no murmur, no edema Gastrointestinal (Abdomen): Percussion/Palpation: + abdomen tender (Tenderness on the rt lower quadrant ) and abdomen soft Skin: no rashes, warm and dry Neurologic: PERRL, EOMI, accommodation nl, no face palsy, no dysarthria Psychiatric: A+Ox3, euthymic affect Results & Data Results & Data ([facility]) Vital Signs (Past 12 Hours) Vital Signs Temp Pulse Pulse Resp BP Pulse Ox 07/27/20 12:56 37.6 C H 92 H 18 118/74 93 07/27/20 10:53 36.8 C 81 18 116/61 90 07/27/20 08:00 77 07/27/20 07:07 37.4 C 79 16 100/60 90
--- NOTE | 2020-07-27 23:06 | Communication Note ---
Date of Service: July 27, 2020 pt developed delirium /sundowning in evening , being impulsive , climbing out of bed, being un co-cooperative with nursing - requiring 1:1 for safety pt was very pleasant and co operative in am was forgetful , but was able to answer simple questions pt re-evaluated at bedside around 7 pm for agitation : confused and disoriented wants to go home , reaching out for phone , wants to come and take him home immediately has no recollection of morning conversion comfortable , denies of any abdominal pain , ordered for PRN IM Haldol for hospital acquired delirium avoid BDZ /sedatives as it can cause rebound agitation will limit lab draw , ordered for clear liquid diet in am DC IV fluid to limit pt;s agitation over all prognosis remains poor plan to return home with home health /then transition to hospice does not have any fever or chills no evidence of worsening of abdominal pain possible resolution of diverticular microperforation in next 1-2 days with conservative approach only pt will need hospital stay for at least next 1-2 days to slow advance of diet, and to assess clinical stability from diverticular microperforation Greta Shore MD
--- NOTE | 2020-07-28 08:26 | Surgery Progress Note ---
Date of Service July 28, 2020 Assessment & Plan (1) Diverticulitis of colon with perforation: WBC stable at 15 pain stable may try some sips of clears today will follow but no surgical intervention indicated Hospice being arranged (2) Pancreatic adenocarcinoma: Admission and Anticipated Discharge Date Admission Date: July 26, 2020 Subjective still says he has pain difficult to assess if worse but seems relatively comfortable low grade fever yesterday palliative consult yesterday with plans for Hospice at home and stopping chemo not surgical candidate Review of Systems Gastrointestinal: + abdominal pain Physical Exam Constitutional: + thin Neck: trachea midline Respiratory: normal respiratory effort, lungs clear to auscultation Cardiovascular: RRR, no murmur, no edema Gastrointestinal (Abdomen): Inspection/Auscultation: abdomen normal to inspection and + abdominal surgical scar; abdomen not distended Percussion/Palpation: + abdomen tender; no guarding and abdomen not rigid Skin: no rashes, warm and dry Results & Data ([facility]) Vital Signs (Past 12 Hours) Vital Signs Temp Pulse Resp BP Pulse Ox 07/28/20 07:45 37.3 C 84 18 138/64 92 07/28/20 00:04 37.2 C 88 20 124/62 90 (1) Diverticulitis of colon with perforation Diverticulitis bleeding: unspecified bleeding status Qualified Code(s): K57.20 - Diverticulitis of large intestine with perforation and abscess without bleeding
[2020-07-28] MEDS: PIPERACILLIN/TAZOBACTAM 3.375 GM in DEXTROSE 5% 100 ML IV SCH ×3 (08:40→23:06)
--- NOTE | 2020-07-28 17:58 | Hospitalist Progress Note ---
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 06/25/20 He underwent ERCP with biliary stent placement secondary to severe stricture felt likely malignant. Also liver and adenopathy related metastasis noted as well. He has been following Dr. Gallagher and underwent his first round of chemo 07/23 Gemcitabine and Abraxane. This morning he woke up with abdominal pain and feeling sick to stomach. Evaluation patient met sepsis criteria per current CMS guidelines with tachycardia, leukocytosis and documented acute diverticulitis with microperforation on CT scan. Patient input from surgery, patient is a very poor surgical candidate, given metastatic adeno CA of terminal illness diagnosis. 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 recurrence of Cancer 1 month later effectively with SBRT 02/2019. s/p systemic chemotherapy with gemcitabine and Abraxane 12/01/2018 -02/2019. recurrence of cancer noted CA 19-9 on 04/13/2020:60 developed obstructive jaundice 06/2020 status post palliative biliary stent placement by Dr. Palmer. Biopsy from the periportal lymph node showed metastatic adenocarcinoma and several pancreatic primary. CT abdomen pelvis on admission shows : progression of pancreatic ca with wide spread mets: 35 mm septated cystic lesion on the right arcadio hepatis concerning for necrotic lymphadenopathy or cystic neoplasm also pathologic aortocaval adenopathy suspicious for metastatic disease. Patient's understands poor prognosis-not a candidate for further chemo or rad tx Palliative care consulted, appreciate input. had open discussion with palliative care currently pt is clinically stable no abdominal pain or discomfort ,tolerating diet family wants pt to return home with home Health service which can be transitioned to hospice when appropriate Dementia: baseline dementia , which has progressively gotten worse in past several months as per developed sundowning , hospital delirium few days back , was getting out of bed , wandering in [address] -required 1:1 for safely much more calm and co-operative and appropriate per , pt usually dose better when at home in familiar surrounding plan to discharge home with home health and family support (4) Enlarged prostate: on adovart and flomax as outpt DNR/DNI Disposition:discharge home with home health on thursday updated over phone Admission and Anticipated Discharge Date Admission Date: July 26, 2020 Subjective follow up visit for pancreatic ca /diverticular microperforation : comfortable no complain of abdominal pain tolerating soft diet /minced and moist well pleasantly confused no fever or chills Review of Systems Review of Systems: Unobtainable due to cognitive status (dementia -oriented to person only ) Physical Exam Constitutional: WD/WN, vitals as above Eyes: + anicteric sclerae ENMT: external ear and nose normal, oropharynx normal Neck: trachea midline, no thyromegaly Respiratory: normal respiratory effort, lungs clear to auscultation Cardiovascular: RRR, no murmur, no edema Gastrointestinal (Abdomen): Percussion/Palpation: abdomen soft; abdomen nontender Skin: no rashes, warm and dry Neurologic: PERRL, EOMI, accommodation nl, no face palsy, no dysarthria awake; no focal motor deficits and not confused Psychiatric: Orientation: alert (confused ) and oriented to person Results & Data Results & Data ([place]) Vital Signs (Past 12 Hours) Vital Signs Temp Pulse Resp BP Pulse Ox 07/28/20 15:06 37.4 C 87 16 133/68 90 07/28/20 07:45 37.3 C 84 18 138/64 92
[2020-07-29] MEDS: PIPERACILLIN/TAZOBACTAM 3.375 GM in DEXTROSE 5% 100 ML IV SCH (08:00)
--- NOTE | 2020-07-29 09:48 | Surgery Progress Note ---
Date of Service July 29, 2020 Assessment & Plan (1) Diverticulitis of colon with perforation: plan to discharge on palliative care no surgical intervention slow improvement Admission and Anticipated Discharge Date Admission Date: July 26, 2020 Subjective pain improving tolerating po low grade fever yesterday Review of Systems Constitutional: + fever; no chills and no sweats Respiratory: no dyspnea Cardiovascular: no chest pain Gastrointestinal: + abdominal pain; no nausea, no vomiting and no change in bowel habits Genitourinary: no dysuria Physical Exam Constitutional: + thin; no acute distress Neck: trachea midline Respiratory: normal respiratory effort, lungs clear to auscultation no respiratory distress Cardiovascular: RRR, no murmur, no edema Gastrointestinal (Abdomen): Inspection/Auscultation: abdomen normal to inspection, + abdomen distended and normal bowel sounds Percussion/Palpation: + abdomen tender and abdomen soft; no guarding and abdomen not rigid Musculoskeletal: Head/Neck/Chest: normocephalic and head atraumatic Skin: no rashes, warm and dry Results & Data ([facility]) Vital Signs (Past 12 Hours) Vital Signs Temp Pulse Resp BP Pulse Ox 07/29/20 07:42 37.8 C H 74 18 130/65 90 (1) Diverticulitis of colon with perforation Diverticulitis bleeding: unspecified bleeding status Qualified Code(s): K57.20 - Diverticulitis of large intestine with perforation and abscess without bleeding
[2020-07-30 07:38] LABS: Creatinine Clr Calc Pharmacy 69.8 ml/min; Est GFR (African American) 101.3; Est GFR (Non-African American) 87.4
--- NOTE | 2020-07-30 09:07 | Surgery Progress Note ---
Date of Service July 30, 2020 Assessment & Plan (1) Diverticulitis of colon with perforation: Patient afebrile for 24 hours, last temp 37.8C was yesterday around 7:40am Patient endorsing overall improvement. Denies abdominal pain/n/v. He is having BM's Tolerating a diet Plan is to send patient home today with home health Would recommend patient be discharged on a course of oral abx to complete a course of 10-14 days for his diverticulitis Admission and Anticipated Discharge Date Admission Date: July 26, 2020 Subjective Patient states he is doing well. Denies abdominal pain, nausea/vomiting. Tolerating a diet. Having + bowel function. Physical Exam Physical Exam: awake, sitting up in chair Respiratory: normal respiratory effort Gastrointestinal (Abdomen): Inspection/Auscultation: + abdomen distended (mild) Percussion/Palpation: abdomen soft; abdomen nontender Results & Data ([facility]) Vital Signs (Past 12 Hours) Vital Signs Temp Pulse Resp BP Pulse Ox 07/30/20 08:19 36.8 C 83 18 124/73 93 07/29/20 23:00 37.2 C 75 18 150/75 H 90 PG Care Time/CCT Total # of Minutes Spent Total Time Spent with Patient: Total time spent is greater than 50% in coordination of care (as documented) at patient's floor/unit and/or counseling patient: Coding Level of Care Code 92819 Subseq Hosp Care Lvl 1 Diagnoses Diverticulitis of colon with perforation K57.20 Diverticulitis bleeding: unspecified bleeding status (1) Diverticulitis of colon with perforation Diverticulitis bleeding: unspecified bleeding status Qualified Code(s): K57.20 - Diverticulitis of large intestine with perforation and abscess without bleeding
--- NOTE | 2020-07-30 10:20 | Palliative Care Progress Note ---
Date of Service July 30, 2020 Assessment & Plan (1) Abdominal pain: Resolved. Tolerating diet. Anticipate discharge home today (2) Palliative care encounter: I spoke with Mrs. Palomo on the phone. She is anxious for him to return home and feels that she is ready to care for him. She will have support with home care to help her and PT/OT to help reduce fall risk and strengthen as much as possible. He will not be receiving further cancer treatment and goal is safety and comfort. Home care will assist with transition to hospice when appropriate. (3) Diverticulitis of colon with perforation: (4) Pancreatic adenocarcinoma: Admission and Anticipated Discharge Date Admission Date: July 26, 2020 Subjective Sitting up in chair. Memory is better today. He remembers that he had some infection and a hole in his bowel. He denies abdominal pain, nausea. He reports good appetite. He has had some loose stool and urgency. Review of Systems Review of Systems: [place] Symptom Assessment Scale Pain 0/3 Dyspnea 0/3 Nausea 0/3 Anorexia 0/3 Fatigue 1/3 Anxiety 0/3 Drowsiness 0/3 Palliative Performance Score 50% Physical Exam Constitutional: comfortable; no acute distress ENMT: Mouth: oral mucous membranes not dry Respiratory: normal respiratory effort; no labored breathing Gastrointestinal (Abdomen): Percussion/Palpation: abdomen nontender Musculoskeletal: unsteady gait, fall risk Skin: warm and dry Neurologic: moves all extremities and awake memory impaired Psychiatric: Affect: euthymic affect Results & Data ([facility]) Vital Signs (Past 12 Hours) Vital Signs Temp Pulse Resp BP Pulse Ox 07/30/20 08:19 98.2 F 83 18 124/73 93 07/29/20 23:00 99.0 F 75 18 150/75 H 90 PG Care Time/CCT Total # of Minutes Spent Total Time Spent with Patient: Total time spent is greater than 50% in coordination of care (as documented) at patient's floor/unit and/or counseling patient: Total time spent 25 minutes with more than 50% of time spent on family support and goals of care. Coding Level of Care Code 12511 Subseq Hosp Care Lvl 2 Diagnoses Abdominal pain R10.9 Abdominal location: unspecified location Palliative care encounter Z51.5 Diverticulitis of colon with perforation K57.20 Diverticulitis bleeding: unspecified bleeding status Pancreatic adenocarcinoma C25.9 (1) Abdominal pain Abdominal location: unspecified location Qualified Code(s): R10.9 - Unspecified abdominal pain (2) Diverticulitis of colon with perforation Diverticulitis bleeding: unspecified bleeding status Qualified Code(s): K57.20 - Diverticulitis of large intestine with perforation and abscess without bleeding
--- NOTE | 2020-07-30 14:33 | Hospitalist Progress Note ---
Date of Service July 30, 2020 Assessment & Plan (1) Sepsis: (2) Diverticulitis of colon with perforation: This is a 84 yr old M who has a significant pmh of pancreatic ca s/p resection and splenectomy 08/24 s/p chemo and SBRT now with recurrence 06/2020. 06/25/20 He underwent ERCP with biliary stent placement secondary to severe stricture felt likely malignant. Also liver and adenopathy related metastasis noted as well. He has been following Dr. Gallagher and underwent his first round of chemo 07/23 Gemcitabine and Abraxane. This morning he woke up with abdominal pain and feeling sick to stomach. Evaluation patient met sepsis criteria per current CMS guidelines with tachycardia, leukocytosis and documented acute diverticulitis with microperforation on CT scan. Patient input from surgery, patient is a very poor surgical candidate, given metastatic adeno CA of terminal illness diagnosis. 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 recurrence of Cancer 1 month later effectively with SBRT 02/2019. s/p systemic chemotherapy with gemcitabine and Abraxane 12/01/2018 -02/2019. recurrence of cancer noted CA 19-9 on 04/13/2020:60 developed obstructive jaundice 06/2020 status post palliative biliary stent placement by Dr. Palmer. Biopsy from the periportal lymph node showed metastatic adenocarcinoma and several pancreatic primary. CT abdomen pelvis on admission shows : progression of pancreatic ca with wide spread mets: 35 mm septated cystic lesion on the right arcadio hepatis concerning for necrotic lymphadenopathy or cystic neoplasm also pathologic aortocaval adenopathy suspicious for metastatic disease. Patient's understands poor prognosis-not a candidate for further chemo or rad tx Palliative care consulted, appreciate input. had open discussion with palliative care currently pt is clinically stable no abdominal pain or discomfort ,tolerating diet return home with home Health service which can be transitioned to hospice when appropriate Dementia: baseline dementia , which has progressively gotten worse in past several months as per developed sundowning , hospital delirium few days back , was getting out of bed , wandering in [address] -required 1:1 for safely symptoms has resolved much more calm and co-operative and appropriate per , pt usually dose better when at home in familiar surrounding plan to discharge home today with home health and family support (4) Enlarged prostate: on adovart and flomax as outpt DNR/DNI Disposition: pt is discharged home today Admission and Anticipated Discharge Date Admission Date: July 26, 2020 Subjective follow up visit for pancreatic ca /diverticular microperforation : very pleasant and co-operative says feels fine no complain of abdominal pain or nausea on solid diet stable to be discharged home today Review of Systems Review of Systems: All systems reviewed & are unremarkable except as noted in Subjective Physical Exam Constitutional: WD/WN, vitals as above + ill appearing Eyes: PERRL, conjunctivae normal, anicteric sclerae + anicteric sclerae ENMT: external ear and nose normal, oropharynx normal Neck: trachea midline, no thyromegaly Respiratory: normal respiratory effort, lungs clear to auscultation Cardiovascular: RRR, no murmur, no edema Gastrointestinal (Abdomen): Percussion/Palpation: abdomen soft; abdomen nontender Skin: no rashes, warm and dry Neurologic: PERRL, EOMI, accommodation nl, no face palsy, no dysarthria awake; no focal motor deficits and not confused Psychiatric: Orientation: alert, oriented to person and oriented to place Results & Data Results & Data ([facility]) Vital Signs (Past 12 Hours) Vital Signs Temp Pulse Pulse Resp BP Pulse Ox 07/30/20 11:12 36.8 C 83 97 H 18 124/73 93 07/30/20 08:19 36.8 C 83 18 124/73 93
--- NOTE | 2020-07-30 14:34 | Discharge Summary ---
Date of Service July 30, 2020 Admission HPI Per Admitting Provider This is a 84 yr old M who has a significant pmh of pancreatic ca s/p resection and splenectomy 08/24 s/p chemo and SBRT now with recurrence 06/2020. 06/25/20 He underwent ERCP with bilary stent placement secondary to severe stricture felt likely malignant. Also liver and adenopathy related metatasis noted as well. He has been following Dr. Gallagher and underwent his first round of chemo 07/23 Gemcitabine and Abraxane. This morning he woke up with abdominal pain and feeling sick to stomach. He has been constipation and last decent BM was 4 days ago. En route to ED he did have episode of yellow emesis which helped his abdominal pain. He denies recent f/c/s, dizziness, lightheaded, chest pain, sob, diarrhea, melena or hematochezia. His appetite has been somewhat stable despite chemo. is a bedside who has kept a log of his weights and vitals which have all been stable. He does have a dry cough,tickle in throat and occasional difficulty swallowing felt likely due to cancer. In ED he does meet Sepsis crit eria due to elevated wbc and HR. CT a/p reveal Acute diverticulitis with evidence of a microperforation with extraluminal mesenteric gas with no fluid collections to indicate a drainable abscess, 2. Postsurgical changes of a partial pancreatectomy splenectomy and cholecystectomy, 3. Indwelling biliary enteric stent with pneumobilia,4. Pathologic aortocaval adenopathy suspicious for metastatic disease, 5. Pancreatic ductal dilatation, 6. 35 mm septated cystic lesion in the region of the arcadio hepatis. This could represent necrotic lymphadenopathy or cystic neoplasm. He is feeling mildly improved in ED. He received 1 L of IVF and IV zosyn in ED. Principal Diagnosis METASTATIC PANCREATIC ADENO CARCINOMA MICROPERFORATION OF COLON Discharge Exam Constitutional WD/WN, vitals as above + ill appearing Eyes PERRL, conjunctivae normal, anicteric sclerae + anicteric sclerae ENMT external ear and nose normal, oropharynx normal Neck trachea midline, no thyromegaly Respiratory normal respiratory effort, lungs clear to auscultation Cardiovascular RRR, no murmur, no edema Gastrointestinal (Abdomen) Percussion/Palpation: abdomen soft; abdomen nontender Skin no rashes, warm and dry Neurologic PERRL, EOMI, accommodation nl, no face palsy, no dysarthria awake; no focal motor deficits and not confused Psychiatric A+Ox3, euthymic affect Orientation: alert, oriented to person and oriented to place Discharge Data Allergies Allergy/AdvReac Type Severity Reaction Status Date / Time Jrrraab-Cbr-Jeb Reductase Allergy Mild myalgias Verified 07/26/20 14:56 Inhibitor morphine AdvReac Mild combative, Verified 07/26/20 14:56 N/V Consultations 07/26/20 15:50 ED Decision to Admit Stat 07/26/20 16:30 Consult Gastroenterology Routine Consult General Surgery Routine 07/26/20 19:04 Consult Case Management - Discharge Planning Routine 07/27/20 14:15 Consult Palliative Care Routine Ordered Studies 07/26/20 14:04 CT abd pelvis IV con only Stat Hospital Course (1) Sepsis: (2) Diverticulitis of colon with perforation: This is a 84 yr old M who has a significant pmh of pancreatic ca s/p resection and splenectomy 08/24 s/p chemo and SBRT now with recurrence 06/2020. 06/25/20 He underwent ERCP with biliary stent placement secondary to severe stricture felt likely malignant. Also liver and adenopathy related metastasis noted as well. He has been following Dr. Gallagher and underwent his first round of chemo 07/23 Gemcitabine and Abraxane. This morning he woke up with abdominal pain and feeli ng sick to stomach. Evaluation patient met sepsis criteria per current CMS guidelines with tachycardia, leukocytosis and documented acute diverticulitis with microperforation on CT scan. Patient input from surgery, patient is a very poor surgical candidate, given metastatic adeno CA of terminal illness diagnosis. 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 recurrence of Cancer 1 month later effectively with SBRT 02/2019. s/p systemic chemotherapy with gemcitabine and Abraxane 12/01/2018 -02/2019. recurrence of cancer noted CA 19-9 on 04/13/2020:60 developed obstructive jaundice 06/2020 status post palliative biliary stent placement by Dr. Palmer. Biopsy from the periportal lymph node showed metastatic adenocarcinoma and several pancreatic primary. CT abdomen pelvis on admission shows : progression of pancreatic ca with wide spread mets: 35 mm septated cystic lesion on the right arcadio hepatis concerning for necrotic lymphadenopathy or cystic neoplasm also pathologic aortocaval adenopathy suspicious for metastatic disease. Patient's understands poor prognosis-not a candidate for further chemo or rad tx Palliative care consulted, appreciate input. had open discussion with palliative care currently pt is clinically stable no abdominal pain or discomfort ,tolerating diet return home with home Health service which can be transitioned to hospice when appropriate Dementia: baseline dementia , which has progressively gotten worse in past several months as per developed sundowning , hospital delirium few days back , was getting out of bed , wandering in [place] -required 1:1 for safely symptoms has resolved much more calm and co-operative and appropriate per , pt usually dose better when at home in familiar surrounding plan to discharge home today with home health and family support (4) Enlarged prostate: on adovart and flomax as outpt DNR/DNI Disposition: pt is discharged home today Total Time Total Time Spent Total Time Spent (In Minutes): 40 mins Total Time Includes: Examination of the Patient, Discharge Planning and Medication Reconciliation Discharge Plan Discharge Items Patient Disposition: Home - Home Health Services Reason For Visit: SEPSIS, ACUTE DIVERTICULITIS WITH MICROPERFORATION Discharge Diagnosis: METASTATIC PANCREATIC ADENO CARCINOMA MICROPERFORATION OF COLON Activity: As commented below Activity Comment: TOLERATED Non-emergency contact: Primary Care Provider Call non-emergency contact if: you have any medication questions Follow-up/Referrals: Elder Fleming MD [Primary Care Provider] - (Date & Time 08/03/2020 2:00 PM Provider Elder Fleming MD Department Family Practice [facility] ) Diet: Regular Diet Texture: Mechanical soft (ground) Addtl Attending Provider Instructions: Soft diet as tolerated may hold of meals if experiencing -abdominal pain /vomiting take Ensure 2-3 times daily Hospital follow up with Family physician in a week take over the counter Pro-Biotics daily Utilize Imodium as needed for loose stool Pending Studies at Discharge: No Stand-Alone Forms: [employer], Smoking Cessation Medications and DC Order Prescriptions: New ciprofloxacin HCl [Cipro] 500 mg tablet 500 mg PO BID 7 Days Qty: 14 RF: 0 metronidazole [Flagyl] 500 mg tablet 500 mg PO TID 7 Days Qty: 21 RF: 0 Probiotic 15 billion cell capsule 1 cap PO TIDM 28 Days Qty: 28 RF: 0 loperamide [Anti-Diarrheal (loperamide)] 2 mg capsule 2 mg PO Q6H PRN (Reason: loose stool) Qty: 30 RF: 0 Continued mirtazapine [Remeron] 15 mg tablet 15 mg PO HS RF: 0 alprazolam [Xanax] 0.5 mg Tablet 0.5 mg PO TID PRN (Reason: Anxiety) RF: 0 omega 3-fge-egs-fish oil [Fish Oil] 1,000 mg (120 mg-180 mg) Capsule 1,000 mg PO QAM RF: 0 tamsulosin [Flomax] 0.4 mg capsule 0.4 mg PO QPM RF: 0 Mucinex Cold,Flu,Sore Throat 10-20-650 mg/20 mL Liquid 20 ml PO BID PRN (Reason: Congestion) RF: 0 magnesium 500 mg Tablet 500 mg PO QAM RF: 0 polyethylene glycol 3350 [Miralax] 17 gram Powder In Packet 17 g PO DAILY RF: 0 dicyclomine 20 mg tablet 20 mg PO TID PRN (Reason: abdominal pain) Qty: 30 RF: 0 cholecalciferol (vitamin D3) [Vitamin D3] 125 mcg (5,000 unit) Tablet 125 mcg PO QAM RF: 0 dutasteride 0.5 mg capsule 0.5 mg PO DAILY RF: 0 Discontinued aspirin 81 mg Tablet,Delayed Release (Dr/Ec) 81 mg PO QAM RF: 0 Discharge Orders: Discharge Order (Routine); Ordered 07/30/20 Ordered By: Greta Patton/Other Patient Handouts: ED Soft Diet Admission Data Admit Date/Time: 07/26/20 16:30 Attending Provider: Greta Shore Admit Provider: Yolanda Valles I. Primary Care Provider: Elder Fleming Other Providers: Yolanda Valles I. ; Rafia Moe ; Jl Perkins ; [facility] ; Maria Dolores Glaser Other Interventions: Discharge Summary Assessment (RN) Last Done: 07/30/20 11:12
== END 2020-07-30 13:10 | disposition home health service (06) | DRG 872 ==
LOC: ED 12:58 → SUATTDRO 16:30 → 2S 16:30 → 3N 07-27 10:42

== ENCOUNTER 2020-12-30 01:28 | Inpatient (IN) ==
[2020-12-30] MEDS ORDERED: ACETAMINOPHEN 1,000 MG/100 ML VIAL IV STA (01:39)
[2020-12-30] MEDS ORDERED: SODIUM CHLORIDE 0.9% 1000ML 1,000 ML IV SCH (01:45)
[2020-12-30 02:03] LABS: Hematocrit (blood only) 36.7 % (42-52); Hemoglobin 12.4 g/dL (14.0-18.0); Mean Corpuscular Hemoglobin 30.7 pg (25-34); Mean Corpuscular Hgb Conc 33.8 g/dL (32-36); Mean Corpuscular Volume 90.8 fL (80-100); Mean Platelet Volume 10.1 fL (7.4-10.4); Platelet Count 302 K/uL (130-400); RDW Coefficient of Variation 14.9 % (11.5-14.5); RDW Standard Deviation 49.9 fL (36.4-46.3); Red Blood Count 4.04 M/uL (4.7-6.1); White Blood Count 24.19 K/uL (4.8-10.8)
[2020-12-30 02:14] LABS: INR 1.2 (0.9-1.1); Partial Thromboplastin Ratio 1.1; Partial Thromboplastin Time 28.7 Seconds (21.0-31.0); Prothrombin Time 11.9 Seconds (9.0-12.0)
[2020-12-30] MEDS ORDERED: CEFEPIME 2,000 MG/20 ML VIAL IV STA (02:14)
[2020-12-30 02:19] LABS: Albumin Level 2.9 gm/dl (3.4-5.0); BUN Creatinine Ratio 20.3 (10-20); Calcium 9.4 mg/dl (8.5-10.1); Creatinine Clr Calc Pharmacy 32.1 ml/min; Est GFR (African American) 62.5 ml/min; Magnesium 1.6 mg/dl (1.8-2.4); Potassium 3.5 mmol/L (3.5-5.1)
[2020-12-30 02:22] LABS: Immature Granulocytes # (auto) 0.12 K/uL (0.00-0.02); Immature Granulocytes % (auto) 0.5 %; Lymphocytes # (auto) 0.19 K/uL (1.2-3.4); Lymphocytes % (auto) 0.8 %; Monocytes # (auto) 0.14 K/uL (0.11-0.59); Monocytes % (auto) 0.6 %; Neutrophils # (auto) 23.74 K/uL (1.4-6.5); Neutrophils % (auto) 98.1 %
--- NOTE | 2020-12-30 02:24 | Emergency Department Note ---
History of Present Illness General Chief complaint: Illness Stated complaint: FEVER/VOMITING/ALTERED MENTAL STATUS Time Seen by Provider: 12/30/20 01:31 Source: patient Mode of arrival: ambulatory Limitations: no limitations History of Present Illness Provider complaint: Fever, chills Onset (ago): day(s) 2 This is an 85-year-old male presents emergency department with at bedside due to concern for fevers and chills. Patient has known pancreatic cancer, and has been on hospice. She states he was recently being treated for phlebitis with Keflex to the left lower extremity, however on began having fevers and subsequent chills again. She states he finished the antibiotics yesterday, and during the day developed a temperature as high as 104. states she did give him OTC meds and applied ice packs and the fever did improve. She states typically when he has pain it is in his abdomen. She states he has not complained of any worsening pain these last several days. She states states he does have a chronic cough. She states she has been monitoring his vital signs at home and noted that his heart rate was elevated in the 120s, and his oxygen level was low on . She states this did improve. He does not typically wear home oxygen. He states he does feel slightly more short of breath than usual. She states the redness on the over the phlebitis is improved. No additional lower extremity edema, no other rash or sores. Pt seen during a time of high acuity and national emergency pandemic while wearing PPE. Home Medications Medication Instructions Recorded Confirmed Type cholecalciferol (vitamin D3) 125 mcg PO QAM 02/10/20 12/30/20 History [Vitamin D3] Mucinex Cold,Flu,Sore Throat 20 ml PO BID PRN 06/22/20 12/30/20 History tamsulosin [Flomax] 0.4 mg PO QPM 06/22/20 12/30/20 History dicyclomine 20 mg PO TID PRN #30 tab NS 06/25/20 12/30/20 Rx dutasteride 0.5 mg PO DAILY 07/26/20 12/30/20 History Prevagen 1 tab PO DAILY 12/30/20 12/30/20 History aspirin [Aspir-Low] 81 mg PO DAILY 12/30/20 12/30/20 History bisacodyl 10 mg DC DAILY PRN 12/30/20 12/30/20 History haloperidol lactate 0.5 mg PO Q4 PRN 12/30/20 12/30/20 History haloperidol lactate 0.5 mg PO TID 12/30/20 12/30/20 History lorazepam [Ativan] 0.5 mg PO BID 12/30/20 12/30/20 History mirtazapine 30 mg PO HS 12/30/20 12/30/20 History oxycodone 5 mg PO Q4 12/30/20 12/30/20 History pantoprazole [Protonix] 40 mg PO DAILY 12/30/20 12/30/20 History prednisone 10 mg PO QAM 12/30/20 12/30/20 History prochlorperazine maleate 10 mg PO Q6H PRN 12/30/20 12/30/20 History [Compazine] Allergies Allergy/AdvReac Type Severity Reaction Status Date / Time [id number]-[id number] Reductase Allergy Mild myalgias Verified 12/30/20 02:46 Inhibitor morphine AdvReac Mild combative, Verified 12/30/20 02:46 N/V Past Med/Surg History Medical History (Updated 12/31/20 @ 02:46 by Maria Dolores Terry DO) Anemia Aneurysm of aorta ascending aorta (follows with Dr. 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) Anxiety Cancer pancreas (dx 2018) s/p resection/chemo/xrt, currently under surveillance by oncology Cleft palate S/p revision of nose surgeries for cleft lip and palate per records Dementia Enlarged prostate GERD (gastroesophageal reflux disease) Hyperlipidemia Hypertension no meds Memory changes Pulmonary nodule denies Surgical History H/O esophagogastroduodenoscopy H/O prostate biopsy History of arthroscopy of shoulder History of back surgery Lumbar spine fusion, 1997 History of dental surgery dental implants placed History of incisional hernia repair lap incisional hernia repair, open left spigelian hernia repair: 02/22/2020: G rade view 1, MAC #3, ETT 7.0 at [facility] History of laparotomy partial removal pancreas/gallbladder/spleen (08/2018) History of repair of right rotator cuff History of reverse total replacement of right shoulder joint History of surgery Multiple surgeries to revise nose for cleft lip/palate Hx of appendectomy age 8 Hx of cataract surgery R/L Hx of colonoscopy S/P cholecystectomy Family History Brother Prostate cancer Heart disease Kidney stones Father Cancer Sister Breast cancer Other Alzheimer disease No family history of adverse response to anesthesia Social History Smoking Status: Unknown if ever smoked Second Hand Exposure: No; Preferred Language: Uruguayan Communication Ability: Unable Communication Ability Comment: AMS , BASELINE DEMINTIA Visual Impairment: No Limitations Hearing Ability: Hard of Hearing Payroll And Benefits Manager Required: No Beliefs That Will Affect Care: None marital status: Current Living Situation: Spouse Current Living Situation Comment: LIVES WITH FAMILY TO [facility] Feels Safe at Home: Yes Assistive Devices: None Review of Systems See HPI for pertinent positives & negatives. and A total of 10 systems reviewed and were otherwise negative Physical Exam Vital Signs Vital Signs - 24 hr 12/30/20 02:42 12/30/20 03:00 12/30/20 03:30 Pulse Rate 100 H 100 H Pulse Rate [Brachial] 106 H Pulse Rate from SpO2 Sensor 99 H 105 H Respiratory Rate 20 32 H 22 Blood Pressure 86/58 L Blood Pressure [Right Arm] 116/67 Blood Pressure Mean 67 Blood Pressure Mean [Right Arm] 83 Pulse Oximetry 92 90 87 L Oxygen Delivery Method Nasal Cannula Room Air Oxygen Flow Rate 2 2 12/30/20 03:32 12/30/20 04:00 12/30/20 04:39 Pulse Rate 102 H 95 H 103 H Pulse Rate [Brachial] Pulse Rate from SpO2 Sensor 103 H 91 H 104 H Respiratory Rate 33 H 26 H 29 H Blood Pressure 95/60 L 92/61 L 92/67 L Blood Pressure [Right Arm] Blood Pressure Mean 71 71 75 Blood Pressure Mean [Right Arm] Pulse Oximetry 91 93 93 Oxygen Delivery Method Nasal Cannula Nasal Cannula Nasal Cannula Oxygen Flow Rate 2 2 2 12/30/20 05:00 12/30/20 05:30 12/30/20 06:13 Pulse Rate 99 H 74 Pulse Rate [Brachial] Pulse Rate from SpO2 Sensor 99 H 97 H Respiratory Rate 25 H 33 H Blood Pressure 97/62 L 94/68 L 107/57 L Blood Pressure [Right Arm] Blood Pressure Mean 73 76 73 Blood Pressure Mean [Right Arm] Pulse Oximetry 93 94 93 Oxygen Delivery Method Nasal Cannula Nasal Cannula Oxygen Flow Rate 2 2 12/30/20 06:30 12/30/20 06:33 12/30/20 07:00 Pulse Rate 99 H 98 H Pulse Rate [Brachial] Pulse Rate from SpO2 Sensor 100 H 98 H Respiratory Rate 40 H 35 H Blood Pressure 93/77 L 105/60 Blood Pressure [Right Arm] Blood Pressure Mean 82 75 Blood Pressure Mean [Right Arm] Pulse Oximetry 92 92 93 Oxygen Delivery Method Oxymask Oxymask Oxymask Oxygen Flow Rate 15 9 15 12/30/20 07:30 12/30/20 07:32 12/30/20 08:00 Pulse Rate 100 H 105 H Pulse Rate [Brachial] Pulse Rate from SpO2 Sensor 101 H 102 H 104 H Respiratory Rate 29 H 44 H Blood Pressure 91/78 L Blood Pressure [Right Arm] Blood Pressure Mean 82 Blood Pressure Mean [Right Arm] Pulse Oximetry 94 93 91 Oxygen Delivery Method Oxymask Oxymask Oxymask Oxygen Flow Rate 15 15 15 12/30/20 08:30 Pulse Rate 99 H Pulse Rate [Brachial] Pulse Rate from SpO2 Sensor 99 H Respiratory Rate Blood Pressure 96/61 L Blood Pressure [Right Arm] Blood Pressure Mean 72 Blood Pressure Mean [Right Arm] Pulse Oximetry 92 Oxygen Delivery Method Oxygen Flow Rate GENERAL: alert, unwell appearing, well nourished, no distress, non-toxic EYE EXAM: normal conjunctiva, PERRL and EOM's grossly intact OROPHARYNX: no exudate, no erythema, lips, buccal mucosa, and tongue normal and mucous membranes are moist NECK: supple, no nuchal rigidity, no adenopathy, non-tender LUNGS: Clear to auscultation. Normal chest wall mechanics, no w/r, slight rhonchi noted at the right base, tachypnea HEART: no murmurs, S1 normal and S2 normal ABDOMEN: abdomen soft, non-tender, normo-active bowel sounds, no masses, no rebound or guarding. BACK: Back is symmetrical on inspection and there is no deformity, no midline tenderness, no CVA tenderness. SKIN: no rashes and no bruising UPPER EXTREMITIES: upper extremities are grossly normal. FROM, nml pulses b/l. LOWER EXTREMITIES: No pitting edema. FROM, nml pulses b/l. Medial aspect of left lower extremity along knee and calf with ropiness in the area of the previously diagnosed phlebitis, no overlying erythema or increased warmth NEURO EXAM: Normal sensorium, cranial nerves II-XII grossly intact, normal speech, no gross weakness of arms, no gross weakness of legs. Gross sensation intact. Course Course 030: Updated on lab results so far. She states he did have vomiting on which she thought was perhaps from his pain medication. He has also complained of increased abdominal pain. 0611: Updated on CT findings. Extensive bedside conversation about hospice status, worsening malignancy, evolving sepsis here. She would like to call family and discuss options of disposition. 07: Discussed again with . She would like him admitted to see if he responds to IV antibiotics and in the mean time she will make additional a rrangements to try and care for him at home. 0730: Discussed with Dr. Rider. While we were discussing this, overread by our radiologists also suggests PE. This was conveyed to Dr. Rider. UA still pending. Administered Medications Aspirin (Aspirin 81 Mg Ectab) 81 mg PO DAILY SUZANNE Stop: 01/29/21 11:19 Last Admin: 12/30/20 12:31 Dose: Not Given Documented by: [id number] Enoxaparin Sodium (Enoxaparin Inj 40 Mg/0.4 Ml Syr) 40 mg SQ Q12H SUZANNE Stop: 01/29/21 11:59 Last Admin: 12/31/20 00:28 Dose: 40 mg Documented by: [id number] Admin: 12/30/20 12:37 Dose: 40 mg Documented by: [id number] Haloperidol Lactate (Haloperidol Oral Soln 2 Mg/Ml) 0.5 mg PO TID SUZANNE Stop: 01/29/21 11:29 Last Admin: 12/30/20 20:13 Dose: Not Given Documented by: [id number] Admin: 12/30/20 15:36 Dose: Not Given Documented by: [id number] Admin: 12/30/20 12:32 Dose: Not Given Documented by: [id number] Potassium Chloride/Sodium Chloride (Normal Saline W/20 Meq Kcl) 20 meq in 1,000 mls @ 100 mls/hr IV .Q10H SUZANNE Stop: 01/29/21 11:44 Last Admin: 12/30/20 22:39 Dose: 100 mls/hr Documented by: [id number] Infusion: 12/30/20 22:23 Dose: 100 mls/hr Documented by: [id number] Admin: 12/30/20 12:23 Dose: 100 mls/hr Documented by: [id number] Vancomycin HCl 750 mg/ Sodium (Chloride) 265 mls @ 200 mls/hr IV Q24H SUZANNE Stop: 01/02/21 00:00 Last Infusion: 12/31/20 01:49 Dose: 0 mls/hr Documented by: [id number] Admin: 12/31/20 00:28 Dose: 200 mls/hr Documented by: [id number] Cefepime HCl 2,000 mg/ Syringe 20 mls @ 5 mls/min IV Q12H SUZANNE; Protocol Stop: 01/06/21 13:59 Last Admin: 12/31/20 01:51 Dose: 5 mls/min Documented by: [id number] Admin: 12/30/20 14:43 Dose: 5 mls/min Documented by: [id number] Metronidazole (Flagyl) 500 mg in 100 mls @ 100 mls/hr IV Q8H SUZANNE; Protocol Stop: 01/09/21 14:29 Last Admin: 12/31/20 00:42 Dose: Not Given Documented by: [id number] Infusion: 12/30/20 16:43 Dose: 0 mls/hr Documented by: [id number] Admin: 12/30/20 15:40 Dose: 100 mls/hr Documented by: [id number] Lorazepam (Ativan) 0.25 mg in 0.5 mls @ 0.5 mls/min IV Q4H PRN PRN Reason: Agitation Stop: 01/29/21 17:47 Last Admin: 12/30/20 18:03 Dose: 0.5 mls/min Documented by: [id number] Lorazepam (Lorazepam 0.5 Mg Tab) 0.5 mg PO BID SUZANNE Stop: 01/29/21 11:19 Last Admin: 12/30/20 20:13 Dose: Not Given Documented by: [id number] Admin: 12/30/20 12:11 Dose: 0.5 mg Documented by: [id number] Mirtazapine (Mirtazapine Tab 15 Mg Tab) 30 mg PO HS SUZANNE Stop: 01/29/21 20:59 Last Admin: 12/30/20 20:13 Dose: Not Given Documented by: [id number] Miscellaneous (Dutasteride 0.5 Mg Capsule ~ Order Awaiting Action) 1 ea N/A QS [facility] Stop: 01/29/21 15:59 Last Admin: 12/31/20 00:29 Dose: Not Given Documented by: [id number] Admin: 12/30/20 16:10 Dose: Not Given Documented by: [id number] Pantoprazole Sodium (Pantoprazole 40 Mg Tab) 40 mg PO DAILY SUZANNE Stop: 01/29/21 11:19 Last Admin: 12/30/20 12:31 Dose: Not Given Documented by: [id number] Prednisone (Prednisone 10 Mg Tablet) 10 mg PO QAM [facility] Stop: 01/29/21 11:19 Last Admin: 12/30/20 12:32 Dose: Not Given Documented by: [id number] Tamsulosin HCl (Tamsulosin Hcl 0.4 Mg Cap) 0.4 mg PO QPM [facility] Stop: 01/29/21 20:59 Last Admin: 12/30/20 20:13 Dose: Not Given Documented by: [id number] Discontinued Medications Enoxaparin Sodium (Enoxaparin Inj 40 Mg/0.4 Ml Syr) 40 mg SQ Q12H [facility] Stop: 01/29/21 08:44 Last Admin: 12/30/20 11:24 Dose: Not Given Documented by: [id number] Enoxaparin Sodium (Enoxaparin Inj 40 Mg/0.4 Ml Syr) Confirm Administered Dose 40 mg .ROUTE .STK-MED [facility] Stop: 12/30/20 08:47 Last Admin: 12/30/20 08:51 Dose: 40 mg Documented by: [id number] Haloperidol Lactate (Haloperidol 2 Mg/1 Ml Udp) 0.5 mg PO TID [facility] Stop: 01/29/21 11:19 Last Admin: 12/30/20 12:15 Dose: Not Given Documented by: [id number] Sodium Chloride (Nss 1000ml) 1,000 mls @ 999 mls/hr IV .Q1H1M SUZANNE Stop: 12/30/20 02:45 Last Infusion: 12/30/20 05:14 Dose: 0 mls/hr Documented by: [id number] Admin: 12/30/20 02:01 Dose: 999 mls/hr Documented by: [id number] Acetaminophen (Ofirmev) 1,000 mg in 100 mls @ 400 mls/hr IV NOW STA Stop: 12/30/20 01:53 Last Infusion: 12/30/20 02:25 Dose: 0 mls/hr Documented by: [id number] Admin: 12/30/20 02:01 Dose: 400 mls/hr Documented by: [id number] Cefepime HCl (Maxipime) 2,000 mg in 20 mls @ 5 mls/min IV NOW STA Stop: 12/30/20 02:17 Last Admin: 12/30/20 02:28 Dose: 5 mls/min Documented by: [id number] Vancomycin HCl 1,000 mg/ (Sodium Chloride) 520 mls @ 200 mls/hr IV NOW ONE Stop: 12/30/20 05:06 Last Infusion: 12/30/20 06:27 Dose: 0 mls/hr Documented by: [id number] Admin: 12/30/20 02:40 Dose: 200 mls/hr Documented by: [id number] Lorazepam (Ativan) 0.5 mg in 1 mls @ 1 mls/min IV NOW STA Stop: 12/30/20 03:56 Last Admin: 12/30/20 04:07 Dose: 1 mls/min Documented by: [id number] Sodium Chloride (Nss 1000ml) 1,000 mls @ 999 mls/hr IV .Q1H1M ONE Stop: 12/30/20 05:59 Last Infusion: 12/30/20 06:26 Dose: 15 mls/hr Documented by: [id number] Admin: 12/30/20 05:06 Dose: 999 mls/hr Documented by: [id number] Lorazepam (Ativan) 0.5 mg in 1 mls @ 1 mls/min IV NOW STA Stop: 12/30/20 08:38 Last Admin: 12/30/20 09:17 Dose: Not Given Documented by: [id number] Cefepime HCl 2,000 mg/ Syringe 20 mls @ 5 mls/min IV Q12H [facility]; Protocol Stop: 01/06/21 08:59 Last Admin: 12/30/20 11:25 Dose: Not Given Documented by: [id number] Ioversol (Optiray 320 100ml) 94 ml IV ONCE ONE Stop: 12/30/20 04:32 Last Admin: 12/30/20 04:32 Dose: 94 ml Documented by: [id number] Lorazepam (Lorazepam 2 Mg/4 Ml Vial) Confirm Administered Dose 2 mg .ROUTE .STK- MED ONE Stop: 12/30/20 08:46 Last Admin: 12/30/20 08:50 Dose: 0.5 mg Documented by: [id number] Critical Care Time Critical Care Time: Yes Total Critical Care Time: 45 Critical care of 45 min performed to assess and manage high likelihood of life- threatening sepsis, involving labs and imaging performed with assessment to evaluate sepsis diagnosis with frequent reassessment. This time includes bedside time, treatment discussions with patient/family/consultants, documentation time and excludes procedure time. Medical Decision Making Differential Diagnosis Differential diagnosis: Etiologies such as viral syndrome, otitis, pharyngitis, pneumonia, influenza, meningitis, urinary tract infection, sepsis, bacteremia, as well as others were entertained. Medical Records Attestation: I reviewed the patient's medical records. Home Medications Current Medication List: was personally reviewed by me Laboratory Data Attestation: I reviewed the patient's lab results. Result diagrams: 12/30/20 16:14 12/30/20 16:14 Lab Results 12/30/20 12/30/20 12/30/20 Range/Units 01:52 01:52 01:52 WBC 24.19 H (4.8-10.8) K/uL RBC 4.04 L (4.7-6.1) M/uL Hgb 12.4 L (14.0-18.0) g/dL Hct 36.7 L (42-52) % MCV 90.8 (80-100) fL MCH 30.7 (25-34) pg MCHC 33.8 (32-36) g/dL RDW Std Deviation 49.9 H (36.4-46.3) fL RDW Coeff of Jillian 14.9 H (11.5-14.5) % Plt Count 302 (130-400) K/uL MPV 10.1 (7.4-10.4) fL Immature Gran % (Auto) 0.5 % Neut % (Auto) 98.1 % Lymph % (Auto) 0.8 % [place] % (Auto) 0.6 % Eos % (Auto) 0.0 % Baso % (Auto) 0.0 % Neut # (Auto) 23.74 H (1.4-6.5) K/uL Lymph # (Auto) 0.19 L (1.2-3.4) K/uL [place] # (Auto) 0.14 (0.11-0.59) K/uL Eos # (Auto) 0.00 (0-0.5) K/uL Baso # (Auto) 0.00 (0-0.2) K/uL Immature Gran # (Auto) 0.12 H (0.00-0.02) K/uL PT 11.9 (9.0-12.0) Seconds INR 1.2 H (0.9-1.1) APTT 28.7 (21.0-31.0) Seconds PTT Ratio 1.1 Sodium 133 L (136-145) mmol/L Potassium 3.5 (3.5-5.1) mmol/L Chloride 98 (98-107) mmol/L Carbon Dioxide 24 (21-32) mmol/L Anion Gap 11.0 (3-11) BUN 25 H (7-18) mg/dl Creatinine 1.23 (0.6-1.4) mg/dl Est Cr Clr Drug Dosing 32.1 ml/min Est GFR ( Amer) 62.5 ml/min Est GFR (Non-Af Amer) 54.0 ml/min BUN/Creatinine Ratio 20.3 H (10-20) Glucose 137 H (70-99) mg/dl Lactate (0.4-2.0) mmol/L Calcium 9.4 (8.5-10.1) mg/dl Magnesium 1.6 L (1.8-2.4) mg/dl Total Bilirubin 7.6 H (0.2-1) mg/dl AST 69 H (15-37) U/L ALT 159 H (12-78) U/L Alkaline Phosphatase 656 H (45-117) U/L Troponin I 0.116 H* (0-0.045) ng/ml Total Protein 7.2 (6.4-8.2) gm/dl Albumin 2.9 L (3.4-5.0) gm/dl Globulin 4.3 H (2.5-4.0) gm/dl Albumin/Globulin Ratio 0.7 L (0.9-2) Procalcitonin (0-0.5) ng/ml Urine Color Urine Appearance (Clear) Urine pH (4.5-7.5) Ur Specific [place] (1.000-1.030) Urine Protein (Negative) Urine Glucose (UA) (Negative) Urine Ketones (Negative) Urine Blood (Negative) Urine Nitrite (Negative) Urine Bilirubin (Negative) Urine Urobilinogen (Negative) Ur Leukocyte Esterase (Negative) Urine WBC (Auto) (0-5) /hpf Urine RBC (Auto) (0-4) /hpf U Hyaline Cast (Auto) (0-5) /lpf U Epithel Cells (Auto) (0-5) /lpf Urine Bacteria (Auto) (Negative) COVID-19 Eval Order SARS-CoV-2 (PCR) (Negative) 12/30/20 12/30/20 12/30/20 Range/Units 01:52 01:52 01:52 WBC (4.8-10.8) K/uL RBC (4.7-6.1) M/uL Hgb (14.0-18.0) g/dL Hct (42-52) % MCV (80-100) fL MCH (25-34) pg MCHC (32-36) g/dL RDW Std Deviation (36.4-46.3) fL RDW Coeff of Jillian (11.5-14.5) % Plt Count (130-400) K/uL MPV (7.4-10.4) fL Immature Gran % (Auto) % Neut % (Auto) % Lymph % (Auto) % [place] % (Auto) % Eos % (Auto) % Baso % (Auto) % Neut # (Auto) (1.4-6.5) K/uL Lymph # (Auto) (1.2-3.4) K/uL [place] # (Auto) (0.11-0.59) K/uL Eos # (Auto) (0-0.5) K/uL Baso # (Auto) (0-0.2) K/uL Immature Gran # (Auto) (0.00-0.02) K/uL PT (9.0-12.0) Seconds INR (0.9-1.1) APTT (21.0-31.0) Seconds PTT Ratio Sodium (136-145) mmol/L Potassium (3.5-5.1) mmol/L Chloride (98-107) mmol/L Carbon Dioxide (21-32) mmol/L Anion Gap (3-11) BUN (7-18) mg/dl Creatinine (0.6-1.4) mg/dl Est Cr Clr Drug Dosing ml/min Est GFR ( Amer) ml/min Est GFR (Non-Af Amer) ml/min BUN/Creatinine Ratio (10-20) Glucose (70-99) mg/dl Lactate 4.6 H* (0.4-2.0) mmol/L Calcium (8.5-10.1) mg/dl Magnesium (1.8-2.4) mg/dl Total Bilirubin (0.2-1) mg/dl AST (15-37) U/L ALT (12-78) U/L Alkaline Phosphatase (45-117) U/L Troponin I (0-0.045) ng/ml Total Protein (6.4-8.2) gm/dl Albumin (3.4-5.0) gm/dl Globulin (2.5-4.0) gm/dl Albumin/Globulin Ratio (0.9-2) Procalcitonin 66.87 H (0-0.5) ng/ml Urine Color Urine Appearance (Clear) Urine pH (4.5-7.5) Ur Specific [place] (1.000-1.030) Urine Protein (Negative) Urine Glucose (UA) (Negative) Urine Ketones (Negative) Urine Blood (Negative) Urine Nitrite (Negative) Urine Bilirubin (Negative) Urine Urobilinogen (Negative) Ur Leukocyte Esterase (Negative) Urine WBC (Auto) (0-5) /hpf Urine RBC (Auto) (0-4) /hpf U Hyaline Cast (Auto) (0-5) /lpf U Epithel Cells (Auto) (0-5) /lpf Urine Bacteria (Auto) (Negative) COVID-19 Eval Order Covid19 at [facility] SARS-CoV-2 (PCR) (Negative) 12/30/20 12/30/20 12/30/20 Range/Units 01:52 04:06 06:50 WBC (4.8-10.8) K/uL RBC (4.7-6.1) M/uL Hgb (14.0-18.0) g/dL Hct (42-52) % MCV (80-100) fL MCH (25-34) pg MCHC (32-36) g/dL RDW Std Deviation (36.4-46.3) fL RDW Coeff of Jillian (11.5-14.5) % Plt Count (130-400) K/uL MPV (7.4-10.4) fL Immature Gran % (Auto) % Neut % (Auto) % Lymph % (Auto) % [place] % (Auto) % Eos % (Auto) % Baso % (Auto) % Neut # (Auto) (1.4-6.5) K/uL Lymph # (Auto) (1.2-3.4) K/uL [place] # (Auto) (0.11-0.59) K/uL Eos # (Auto) (0-0.5) K/uL Baso # (Auto) (0-0.2) K/uL Immature Gran # (Auto) (0.00-0.02) K/uL PT (9.0-12.0) Seconds INR (0.9-1.1) APTT (21.0-31.0) Seconds PTT Ratio Sodium (136-145) mmol/L Potassium (3.5-5.1) mmol/L Chloride (98-107) mmol/L Carbon Dioxide (21-32) mmol/L Anion Gap (3-11) BUN (7-18) mg/dl Creatinine (0.6-1.4) mg/dl Est Cr Clr Drug Dosing ml/min Est GFR ( Amer) ml/min Est GFR (Non-Af Amer) ml/min BUN/Creatinine Ratio (10-20) Glucose (70-99) mg/dl Lactate 5.6 H* (0.4-2.0) mmol/L Calcium (8.5-10.1) mg/dl Magnesium (1.8-2.4) mg/dl Total Bilirubin (0.2-1) mg/dl AST (15-37) U/L ALT (12-78) U/L Alkaline Phosphatase (45-117) U/L Troponin I (0-0.045) ng/ml Total Protein (6.4-8.2) gm/dl Albumin (3.4-5.0) gm/dl Globulin (2.5-4.0) gm/dl Albumin/Globulin Ratio (0.9-2) Procalcitonin (0-0.5) ng/ml Urine Color [place] Urine Appearance Slightly Cloudy (Clear) Urine pH (4.5-7.5) Ur Specific [place] 1.049 H (1.000-1.030) Urine Protein (Negative) Urine Glucose (UA) (Negative) Urine Ketones (Negative) Urine Blood (Negative) Urine Nitrite (Negative) Urine Bilirubin (Negative) Urine Urobilinogen (Negative) Ur Leukocyte Esterase (Negative) Urine WBC (Auto) 5-10 H (0-5) /hpf Urine RBC (Auto) 0-4 (0-4) /hpf U Hyaline Cast (Auto) 1-5 (0-5) /lpf U Epithel Cells (Auto) 0-5 (0-5) /lpf Urine Bacteria (Auto) Negative (Negative) COVID-19 Eval Order SARS-CoV-2 (PCR) NEGATIVE (Negative) Imaging Data Radiologist's Impression: Abdomen/Pelvis CT 12/30/20 03:02 CT SCAN OF THE ABDOMEN AND PELVIS WITH IV CONTRAST CLINICAL HISTORY: Fever. Vomiting. COMPARISON STUDY: Abdominal CT dated 07/26/2020. TECHNIQUE: Following the IV administration of 94 cc of Optiray 320, CT scan of the abdomen and pelvis is performed from the lung bases to the proximal femora. Images are reviewed in the axial, sagittal, and coronal planes. IV contrast was administered without complication. A dose lowering technique was utilized adhering to the principles of ALARA. The examination is compromised by motion artifact, as well as by streak artifact from the arms which could not be elevated above the abdomen. CT DOSE: 345.10 mGy.cm FINDINGS: Lung bases: The heart is mildly enlarged and without pericardial effusion. The coronary arteries are densely calcified. Dependent airspace opacities likely represent atelectasis. There are trace pleural effusions there is a tiny hiatal hernia. There is likely pulmonary embolus within the left lower lobe pulmonary artery. Liver: The contrast-enhanced liver is normal in size, contour, and attenuation. There is moderate intrahepatic biliary ductal dilatation. This has significantly increased from previous. The main portal vein is markedly narrowed with only trace flow as seen on axial image #151. The intrahepatic portal veins and hepatic veins are patent. A common bile duct stent is in place. Pneumobilia seen previously is no longer identified, suggesting occlusion of the stent. Peritoneal implants scallops the hepatic capsule scattered hepatic metastases measure up to 2.1 cm seen on image #114. Gallbladder: Surgically absent noting clips in the gallbladder fossa. Spleen: The spleen is not identified and presumed surgically absent. Pancreas: The distal pancreas is surgically absent. The pancreatic head appears enlarged and heterogeneous. The pancreatic duct is markedly dilated measuring up to 11 mm, and the remaining pancreatic body is atrophic. Adrenal glands: Unremarkable. Kidneys: The contrast enhanced kidneys demonstrate mild cortical atrophy and are without hydronephrosis. The kidneys enhance symmetrically. Abdominal vasculature: There is advanced atherosclerotic calcification of the abdominal aorta. 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 A posteriorly oriented aneurysm eccentric to the right seen on image #211 measures 2.3 cm. A large aneurysm oriented to the right on image #227 measures up to 2.8 cm, and a more inferiorly located aneurysm eccentric to the right on image #257 measures 2.1 cm. Bowel: There is moderate to advanced colonic diverticulosis without CT evidence of acute diverticulitis. Mild fecal retention is seen throughout the colon. No bowel obstruction is identified The small bowel and colon are normal in course and caliber. The appendix is nonvisualized. Peritoneum: There is evidence of peritoneal carcinomatosis with a small volume of ascites. This has progressed as compared to 07/26/2020. Peritoneal lesions in the left upper quadrant below the diaphragm measure up to 5.5 cm in aggregate dimension. Low-attenuation lesions are seen scalloping the liver on images #78 and #106. There is no intraperitoneal free air or abdominal ascites. Lymphadenopathy: There is bulky confluent upper abdominal lymphadenopathy within the hepatic hilum. This measures approximately 7 x 3.5 cm in aggregate dimension. There is retroperitoneal lymphadenopathy. A left periaortic node on image #238 measures 3.1 x 2.4 cm. Pelvic viscera: The prostate gland is markedly enlarged and heterogeneous measuring up to 6.1 cm transverse diameter. There is median lobe hypertrophy. The bladder wall appears thickened and trabeculated indicating chronic outlet obstruction. There are small bilateral fat-containing inguinal hernias. Skeletal structures: The skeletal structures are osteopenic. There is lumbosacral spondylosis with postoperative change in the lower lumbar spine. No lytic or blastic lesions are seen. A right shoulder arthroplasty is partially visualized. IMPRESSION: 1. There is likely pulmonary embolus within branches of the left lower lobe pulmonary artery. Consider correlation with a dedicated CT angiogram of the chest. 2. A common bile duct stent is in place. Pneumobilia has almost completely resolved and there has been a significant increase in intrahepatic biliary ductal dilatation. This suggests occlusion of the stent. 3. An infiltrative mass lesion is suggested in the head of the pancreas. Correl ate with the patient's oncological history. 4. There has been a significant increase in multifocal metastatic disease as compared to 07/26/2020. This includes peritoneal carcinomatosis, hepatic metastatic disease, as well as bulky upper abdominal and retroperitoneal lymphadenopathy. 5. Status post distal pancreatectomy, splenectomy, and cholecystectomy. 6. The main portal vein is markedly attenuated with only trace flow. 7. Colonic diverticulosis without CT evidence of acute diverticulitis. 8. 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 The large a mu ltiloculated saccular aneurysm eccentric to the right has significantly increased in size as compared to 07/26/2020. Follow-up with vascular surgery is recommended. 9. Cardiomegaly and trace pleural effusions. 10. Dependent airspace opacities likely represent atelectasis. Clinical correlation will be required. 11. Additional findings as above. ACT 112: Negative or not required by law. Electronically signed by: Clark Newton M.D. 12/30/2020 7:[address] abdomen and pelvis with contrast: Marked interval advancement enlargement of the previously noted hypodense mass in the portal caval region extending to segment one of the liver and probably involving the pancreatic head. The mass is now estimated approximately 5.4 x 6.2 cm on a single transaxial image from 3.2 x 4.2 cm previously. The metallic stent is noted in the common bile duct. However, there is interval development of marked intrahepatic biliary dilatation about the stent. Suspect infiltration and obstruction causing biliary dilatation. The main portal vein is attenuated and poorly defined in the region of the mass. However, the intrahepatic portal vein is patent. Abnormal multilobulated saccular aneurysm involving the infrarenal abdominal aorta, new from the previous exam, now measuring 4.2 x 4.2 cm. No definite periaortic active extravasation. Nonemergent vascular consultation is recommended given the irregular multilobulated appearance, as clinically indicated. Advancing retroperitoneal lymphadenopathy in the periaortic and retrocaval regions. The pancreatic head is poorly defined and presumed associated with the mass. Pancreatic ductal dilatation appears slightly more prominent. Postsurgical changes suggesting prior surgical resection of the pancreatic tail remain. The spleen is not identified. The kidneys are unremarkable. No evidence for bowel obstruction. Evaluation of the bowel is limited with respiratory artifact. Mild to moderate free fluid in the abdomen and pelvis without loculation. Prostatic hypertrophy. The bladder is unremarkable. Subsegmental changes at the lung bases are presumed atelectasis. Radiologist: Edgar García MD ECG Data Attestation: I personally reviewed and interpreted this ECG as follows: Indication: + weakness Rate (beats per minute): 106 Rhythm: + sinus tachycardia ECG Intervals/blocks: + Normal QRS and + Normal QT ECG [place]: + Left axis deviation ECG ST segments: + Normal ST segments MDM Narrative This is an 85-year-old male with known pancreatic cancer who is been on home hospice who presents with his at bedside due to concern for fevers and tachycardia. Patient ill-appearing here and concern for evolving sepsis. After brief discussion with patient and at bedside who did request evaluation, a sepsis work-up was started. Patient was started on IV fluids and broad-spectrum antibiotics. Patient was given a total of 30 mL/KG per sepsis criteria, continued IV fluids were given and in order to help maintain the patient's blood pressure. I did discuss with the at bedside avoiding aggressive invasive treatments at this time given the known underlying disease and his overall goals of hospice. With each evaluation additional information seem to come to light, as did relay the patient had episodes of vomiting while laying supine 2 days prior, and I suspect this may have contributed to the findings on the chest x-ray suggestive of right lower lobe pneumonia which may be in fact from aspir ation. No other acute intra-abdominal infection was noted, however worsening of the patient's known disease and tumor burden was seen. I did discuss all results with the patient and at bedside. We had a lengthy discussion regarding his ongoing medical problems, the acute presentation today, as well as goals of care. At this time she would like patient to be treated as an inpatient to see if he does improve with IV antibiotics and additional oxygen therapy and in the interim she will work on obtaining additional equipment for the patient to ultimately come home. Case discussed with Dr. Rider. UA was pending at the time of our discussion, and while we were talking about the imaging findings, the in-house radiologist did over read the CT and also added the likely possibility of a pulmonary embolism. An order was placed for continuous cardiac monitoring. The monitor shows a rate of _102 with _sinus tachycardia_ rhythm. Impression & Plan Sepsis, Pancreatic mass, Aspiration pneumonia, Hypoxia, Abnormal LFTs, BRENDEN (a cute kidney injury) Discharge Plan Visit Data Chief Complaint: Illness Stated Complaint: FEVER/VOMITING/ALTERED MENTAL STATUS ED Provider: Maria Dolores Terry Discharge Problem: Sepsis, Pancreatic mass, Aspiration pneumonia, Hypoxia, Abnormal LFTs, BRENDEN (acute kidney injury) Patient Disposition: Admitted As Inpatient Discharge Instructions Interventions: ED Discharge Assessment Last Done: 12/30/20 10:48 Discharge Problem: Sepsis Qualifiers: Sepsis type: sepsis due to unspecified organism Sepsis acute organ dysfunction status: with acute organ dysfunction Severe sepsis acute organ dysfunction type: acute respiratory failure Acute respiratory failure type: with hypoxia Severe sepsis shock status: without septic shock Qualified Code(s): A41.9 - Sepsis, unspecified organism Aspiration pneumonia Qualifiers: Aspiration pneumonia type: due to regurgitated food Laterality: right Lung location: lower lobe of lung Qualified Code(s): J69.0 - Pneumonitis due to inhalation of food and vomit
[2020-12-30 02:30] LABS: Albumin Globulin Ratio 0.7 (0.9-2); Bilirubin,Total 7.6 mg/dl (0.2-1); Globulin 4.3 gm/dl (2.5-4.0); Total Protein 7.2 gm/dl (6.4-8.2); Troponin I 0.116 ng/ml (0-0.045)
[2020-12-30] MEDS ORDERED: VANCOMYCIN CONSULT ACTIVE PRN (02:31)
[2020-12-30] MEDS ORDERED: VANCOMYCIN HCL 1,000 MG in SODIUM CHLORIDE 0.9% 500 ML IV ONE (02:31)
[2020-12-30] MEDS ORDERED: LORazepam 0.5 MG/1 ML VIAL IV STA ×2 (03:55→08:37)
[2020-12-30] MEDS ORDERED: OPTIRAY 320 100ml IV ONE (04:31)
[2020-12-30] MEDS ORDERED: SODIUM CHLORIDE 0.9% 1000ML 1,000 ML IV ONE (04:59)
--- NOTE | 2020-12-30 07:28 | CT Scan Report ---
CT SCAN OF THE ABDOMEN AND PELVIS WITH IV CONTRAST CLINICAL HISTORY: Fever. Vomiting. COMPARISON STUDY: Abdominal CT dated 07/26/2020. TECHNIQUE: Following the IV administration of 94 cc of Optiray 320, CT scan of the abdomen and pelvi s is performed from the lung bases to the proximal femora. Images are reviewed in the axial, sagittal , and coronal planes. IV contrast was administered without complication. A dose lowering technique wa s utilized adhering to the principles of ALARA. The examination is compromised by motion artifact, as well as by streak artifact from the arms which could not be elevated above the abdomen. CT DOSE: 345.10 mGy.cm FINDINGS: Lung bases: The heart is mildly enlarged and without pericardial effusion. The coronary arteries are densely calcified. Dependent airspace opacities likely represent atelectasis. There are trace pleural effusions there is a tiny hiatal hernia. There is likely pulmonary embolus within the left lower lob e pulmonary artery. Liver: The contrast-enhanced liver is normal in size, contour, and attenuation. There is moderate int rahepatic biliary ductal dilatation. This has significantly increased from previous. The main portal vein is markedly narrowed with only trace flow as seen on axial image #151. The intrahepatic portal v eins and hepatic veins are patent. A common bile duct stent is in place. Pneumobilia seen previously is no longer identified, suggesting occlusion of the stent. Peritoneal implants scallops the hepatic capsule scattered hepatic metastases measure up to 2.1 cm seen on image #114. Gallbladder: Surgically absent noting clips in the gallbladder fossa. Spleen: The spleen is not identified and presumed surgically absent. Pancreas: The distal pancreas is surgically absent. The pancreatic head appears enlarged and heteroge neous. The pancreatic duct is markedly dilated measuring up to 11 mm, and the remaining pancreatic donis dy is atrophic. Adrenal glands: Unremarkable. Kidneys: The contrast enhanced kidneys demonstrate mild cortical atrophy and are without hydronephros is. The kidneys enhance symmetrically. Abdominal vasculature: There is advanced atherosclerotic calcification of the abdominal aorta. 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 A posteriorly oriented aneurysm eccentric to the right seen on image #211 measures 2.3 cm. A large aneurysm oriented to the right on image #227 measu res up to 2.8 cm, and a more inferiorly located aneurysm eccentric to the right on image #257 measure s 2.1 cm. Bowel: There is moderate to advanced colonic diverticulosis without CT evidence of acute diverticulit is. Mild fecal retention is seen throughout the colon. No bowel obstruction is identified The small b owel and colon are normal in course and caliber. The appendix is nonvisualized. Peritoneum: There is evidence of peritoneal carcinomatosis with a small volume of ascites. This has p rogressed as compared to 07/26/2020. Peritoneal lesions in the left upper quadrant below the diaphragm measure up to 5.5 cm in aggregate dimension. Low-attenuation lesions are seen scalloping the liver o n images #78 and #106. There is no intraperitoneal free air or abdominal ascites. Lymphadenopathy: There is bulky confluent upper abdominal lymphadenopathy within the hepatic hilum. T his measures approximately 7 x 3.5 cm in aggregate dimension. There is retroperitoneal lymphadenopath y. A left periaortic node on image #238 measures 3.1 x 2.4 cm. Pelvic viscera: The prostate gland is markedly enlarged and heterogeneous measuring up to 6.1 cm jimenez sverse diameter. There is median lobe hypertrophy. The bladder wall appears thickened and trabeculate d indicating chronic outlet obstruction. There are small bilateral fat-containing inguinal hernias. Skeletal structures: The skeletal structures are osteopenic. There is lumbosacral spondylosis with po stoperative change in the lower lumbar spine. No lytic or blastic lesions are seen. A right shoulder arthroplasty is partially visualized. IMPRESSION: 1. There is likely pulmonary embolus within branches of the left lower lobe pulmonary artery. Conside r correlation with a dedicated CT angiogram of the chest. 2. A common bile duct stent is in place. Pneumobilia has almost completely resolved and there has bee n a significant increase in intrahepatic biliary ductal dilatation. This suggests occlusion of the st ent. 3. An infiltrative mass lesion is suggested in the head of the pancreas. Correlate with the patient's oncological history. 4. There has been a significant increase in multifocal metastatic disease as compared to 07/26/2020. T his includes peritoneal carcinomatosis, hepatic metastatic disease, as well as bulky upper abdominal and retroperitoneal lymphadenopathy. 5. Status post distal pancreatectomy, splenectomy, and cholecystectomy. 6. The main portal vein is markedly attenuated with only trace flow. 7. Colonic diverticulosis without CT evidence of acute diverticulitis. 8. 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 The large a multiloculated saccular aneu rysm eccentric to the right has significantly increased in size as compared to 07/26/2020. Follow-up w ith vascular surgery is recommended. 9. Cardiomegaly and trace pleural effusions. 10. Dependent airspace opacities likely represent atelectasis. Clinical correlation will be required. 11. Additional findings as above. ACT 112: Negative or not required by law. Electronically signed by: Clark Newton M.D. 12/30/2020 7:26 AM
[2020-12-30 07:31] LABS: Appearance Urine Slightly Cloudy (Clear); Color Urine Amber; Specific Gravity Urine 1.049 (1.000-1.030)
[2020-12-30 07:33] LABS: Epithelial Cell Urine Auto 0-5 /lpf (0-5); RBC Urine Automated 0-4 /hpf (0-4)
[2020-12-30 07:34] LABS: Bacteria Urine Automated Negative (Negative)
--- NOTE | 2020-12-30 07:56 | XRay Report ---
XR chest 1V portable CLINICAL HISTORY: SEPSIS COMPARISON STUDY: 05/25/2018 FINDINGS: The heart is borderline enlarged. There is aortic tortuosity/ectasia. There are bibasilar o pacities right greater than left, atelectatic versus infectious/inflammatory. There is no failure. Th ere are postsurgical changes of a reverse total right shoulder arthroplasty.[ IMPRESSION: 1. Interval development of bibasilar opacities, atelectatic versus infectious/inflammatory. ACT 112: Negative or not required by law. Electronically signed by: Jarrett Hayes M.D. 12/30/2020 7:54 AM
[2020-12-30] MEDS ORDERED: ENOXAPARIN INJ 40 MG/0.4 ML SYR SQ SCH (08:45)
[2020-12-30] MEDS ORDERED: LORazepam 2 MG/4 ML VIAL ONE (08:45)
[2020-12-30] MEDS ORDERED: ENOXAPARIN INJ 40 MG/0.4 ML SYR ONE (08:46)
[2020-12-30] MEDS ORDERED: CEFEPIME 2,000 MG in SYRINGE 0 ML IV SCH ×2 (09:00→22:00)
--- NOTE | 2020-12-30 09:08 | History & Physical Report ---
Date of Service December 30, 2020 Assessment & Plan (1) Sepsis: Likely secondary to pneumonia from aspiration and also may have cholangitis Intravenous fluids will be administered, repeat lactate will be done Started with intravenous cefepime and vancomycin Blood cultures were taken Will add intravenous Flagyl to cover anaerobes (2) Pneumonia: Ongoing nausea and vomiting Likely has aspiration pneumonia Has been on intravenous cefepime and IV vancomycin (3) Pancreatic adenocarcinoma: History of pancreatic adenocarcinoma status post surgery and chemoradiation CT of the abdomen and pelvis did show widespread disease Palliative care was consulted during last admission and was under care of hospice No further treatment for the adenocarcinoma We will continue hospice care at home on improvement otherwise comfort care after about 24 to 48 hours (4) Abdominal pain: (5) Shortness of breath: Secondary to pneumonia and pulmonary embolism which has been noticed on CT of the abdomen and pelvis History of pancreatic cancer and as high potential to develop thromboembolism We will start treatment with Lovenox 40 mg twice daily (6) Cholangitis: Has had biliary stent in the past and may have obstruction Likely has cholangitis Abnormal LFTs-we will monitor LFT We will cover with intravenous antibiotic GI may need to be consulted if LFTs are worsened by tomorrow (7) Pulmonary embolism: As above Has dementia No acute confusion right now Other significant medical conditions remain reasonably stable CODE STATUS DNR/DNI Discussed with the in detail Very poor prognosis We will try aggressively for next 24 to 48 hours, if there is no improvement he will be under comfort care only. History of Present Illness Chief Complaint: Fever, shortness of breath, abdominal pain with nausea and vomiting, generalized weakness for about 1 to 2 weeks Primary Care Provider: Callie Patrick DO Is an 85-year-old male with significant past medical history of adenocarcinoma of the pancreas status post resection and splenectomy in 08/2018 with chemo and radiation treatment with recurrence and has been under care of hospice at home. He has had a recent course of Keflex for phlebitis involving the legs. He has been having more shortness of breath, fever with chills, abdominal pain with nausea vomiting and generalized weakness with falls which has been going on for the last 1 week or so and the condition has gotten worse for the last 2 days. Denies any headache, blurred vision, any numbness or tingling involving any of the extremities and does not have any localized weakness. Denies any chest pain and/or palpitation. He was noted to have fever, tachycardia, tachypnea, low saturation, increased white count and evidence of right more than left basilar infiltrate on x-ray and has probable cholangitis. Blood cultures were taken and he was started with intravenous cefepime and vancomycin and also given Lovenox for pulmonary embolism. He was [facility] to [facility] with telemetry for continuation of care. Allergies Allergy/AdvReac Type Severity Reaction Status Date / Time Vfnlwna-Vaj-Onw Reductase Allergy Mild myalgias Verified 12/30/20 02:46 Inhibitor morphine AdvReac Mild combative, Verified 12/30/20 02:46 N/V Home Medications Medication Instructions Recorded Confirmed Type cholecalciferol (vitamin D3) 125 mcg PO QAM 02/10/20 12/30/20 History [Vitamin D3] Mucinex Cold,Flu,Sore Throat 20 ml PO BID PRN 06/22/20 12/30/20 History tamsulosin [Flomax] 0.4 mg PO QPM 06/22/20 12/30/20 History dicyclomine 20 mg PO TID PRN #30 tab NS 06/25/20 12/30/20 Rx dutasteride 0.5 mg PO DAILY 07/26/20 12/30/20 History Prevagen 1 tab PO DAILY 12/30/20 12/30/20 History aspirin [Aspir-Low] 81 mg PO DAILY 12/30/20 12/30/20 History bisacodyl 10 mg MI DAILY PRN 12/30/20 12/30/20 History haloperidol lactate 0.5 mg PO Q4 PRN 12/30/20 12/30/20 History haloperidol lactate 0.5 mg PO TID 12/30/20 12/30/20 History lorazepam [Ativan] 0.5 mg PO BID 12/30/20 12/30/20 History mirtazapine 30 mg PO HS 12/30/20 12/30/20 History oxycodone 5 mg PO Q4 12/30/20 12/30/20 History pantoprazole [Protonix] 40 mg PO DAILY 12/30/20 12/30/20 History prednisone 10 mg PO QAM 12/30/20 12/30/20 History prochlorperazine maleate 10 mg PO Q6H PRN 12/30/20 12/30/20 History [Compazine] Past Med/Surg History Medical History (Updated 12/30/20 @ 09:02 by Chay Rider MD) Anemia Aneurysm of aorta ascending aorta (follows with Dr. Verma; [facility]), stable per 12/13/19 CTS (4.0 X 3.9cm) Anxiety Cancer pancreas (dx 2018) s/p resection/chemo/xrt, currently under surveillance by oncology Cleft palate S/p revision of nose surgeries for cleft lip and palate per records Dementia Enlarged prostate GERD (gastroesophageal reflux disease) Hyperlipidemia Hypertension no meds Memory changes Pulmonary nodule denies Surgical History H/O esophagogastroduodenoscopy H/O prostate biopsy History of arthroscopy of shoulder History of back surgery Lumbar spine fusion, 1997 History of dental surgery dental implants placed History of incisional hernia repair lap incisional hernia repair, open left spigelian hernia repair: 02/22/2020: Grade view 1, MAC #3, ETT 7.0 at [facility] History of laparotomy partial removal pancreas/gallbladder/spleen (08/2018) History of repair of right rotator cuff History of reverse total replacement of right shoulder joint History of surgery Multiple surgeries to revise nose for cleft lip/palate Hx of appendectomy age 8 Hx of cataract surgery R/L Hx of colonoscopy S/P cholecystectomy Family History Brother Prostate cancer Heart disease Kidney stones Father Cancer Sister Breast cancer Other Alzheimer disease No family history of adverse response to anesthesia Social History Smoking Status: Unknown if ever smoked Second Hand Exposure: No; Preferred Language: Syriac Communication Ability: Unable Communication Ability Comment: AMS , BASELINE DEMINTIA Visual Impairment: No Limitations Hearing Ability: Hard of Hearing Document Review Attorney Required: No Beliefs That Will Affect Care: None marital status: Current Living Situation: Spouse Current Living Situation Comment: LIVES WITH FAMILY [facility] Feels Safe at Home: Yes Assistive Devices: None Review of Systems Review of Systems: All systems reviewed & are unremarkable except as noted in HPI & below Physical Exam Physical Exam: Lying in bed with shortness of breath and anxiety Constitutional: + ill appearing and + thin Eyes: PERRL, conjunctivae normal, anicteric sclerae ENMT: external ear and nose normal, oropharynx normal Neck: trachea midline, no thyromegaly Respiratory: + respiratory distress (Moderate respiratory distress at rest), + retractions and + uses accessory muscles Auscultation: + diminished lung sounds and + crackles (Bilaterally more on the right base than the left) Cardiovascular: Rate/Rhythm: regular rate, regular rhythm and + tachycardic Heart Sounds: no murmur Extremities: no edema Gastrointestinal (Abdomen): Inspection/Auscultation: + abdomen distended and normal bowel sounds Percussion/Palpation: + abdomen tender (Mildly tender in the epigastrium) and abdomen soft Musculoskeletal: No acute arthritis in any joint Neurologic: Alert and awake. Pleasantly confused. Has dementia. Extremely weak and tired Lymphatic: no cervical or axillary lymphadenopathy Results & Data Results & Data ([facility]) Vital Signs (Past 12 Hours) Vital Signs Temp Pulse Pulse Resp BP BP Pulse Ox 12/30/20 08:00 105 H 44 H 91 12/30/20 07:32 100 H 29 H 93 12/30/20 07:30 91/78 L 94 12/30/20 07:00 98 H 35 H 105/60 93 12/30/20 06:33 92 12/30/20 06:30 99 H 40 H 93/77 L 92 12/30/20 06:13 74 33 H 107/57 L 93 12/30/20 05:30 94/68 L 94 12/30/20 05:00 99 H 25 H 97/62 L 93 12/30/20 04:39 103 H 29 H 92/67 L 93 12/30/20 04:00 95 H 26 H 92/61 L 93 12/30/20 03:32 102 H 33 H 95/60 L 91 12/30/20 03:30 100 H 22 87 L 12/30/20 03:00 100 H 32 H 86/58 L 90 12/30/20 02:42 106 H 20 116/67 92 12/30/20 02:31 36.8 C 12/30/20 02:30 98 H 32 H 116/67 92 12/30/20 02:07 102 H 20 116/71 91 12/30/20 02:00 91 12/30/20 01:58 89 L 12/30/20 01:38 38.1 C H 110 H 32 H 113/57 L 92 12/30/20 01:37 38.1 C H 102 H 36 H 113/57 L 91 Laboratory Results Short CBC 12/30/20 Range/Units 01:52 WBC 24.19 H (4.8-10.8) K/uL Hgb 12.4 L (14.0-18.0) g/dL Hct 36.7 L (42-52) % Plt Count 302 (130-400) K/uL BMP 12/30/20 01:52 Sodium 133 L Potassium 3.5 Chloride 98 Carbon Dioxide 24 BUN 25 H Creatinine 1.23 Glucose 137 H Calcium 9.4 Cardiac Enzymes 12/30/20 Range/Units 01:52 Troponin I 0.116 H* (0-0.045) ng/ml Liver Function 12/30/20 Range/Units 01:52 Total Bilirubin 7.6 H (0.2-1) mg/dl AST 69 H (15-37) U/L ALT 159 H (12-78) U/L Alkaline Phosphatase 656 H (45-117) U/L Albumin 2.9 L (3.4-5.0) gm/dl Urine 12/30/20 Range/Units 06:50 Urine Color [place] Urine Appearance Slightly Cloudy (Clear) Urine pH (4.5-7.5) Ur Specific [place] 1.049 H (1.000-1.030) Urine Protein (Negative) Urine Glucose (UA) (Negative) Medications Administered Current Inpatient Medications Enoxaparin Sodium (Enoxaparin Inj 40 Mg/0.4 Ml Syr) 40 mg SQ Q12H SUZANNE Stop: 01/29/21 08:44 Lorazepam (Ativan) 0.5 mg in 1 mls @ 1 mls/min IV NOW STA Stop: 12/30/20 08:38 Cefepime HCl 2,000 mg/ Syringe 20 mls @ 5 mls/min IV Q12H SUZANNE; Protocol Stop: 01/06/21 08:59 Miscellaneous Information (Vancomycin Consult Active) 1 ea N/A UD PRN PRN Reason: Consult Stop: 01/29/21 02:30 Code Status & VTE Plan VTE Prophylaxis Plan VTE Prophylaxis will be ordered: Yes (1) Sepsis Sepsis acute organ dysfunction status: unspecified Sepsis type: sepsis due to unspecified organism Qualified Code(s): A41.9 - Sepsis, unspecified organism (2) Abdominal pain Abdominal location: unspecified location Qualified Code(s): R10.9 - Unspecified abdominal pain
[2020-12-30] MEDS ORDERED: HALOPERIDOL 2 MG/1 ML UDP PO PRN (11:20)
[2020-12-30] MEDS ORDERED: bisacodyL 10 MG SUPP PR PRN (11:20)
[2020-12-30] MEDS ORDERED: [UNRECOGNIZED DRUG - OTHER] PO PRN (11:20)
[2020-12-30] MEDS ORDERED: DICYCLOMINE HCL 20 MG TAB PO PRN (11:20)
[2020-12-30] MEDS ORDERED: PROCHLORPERAZINE MALEATE 10 MG TAB PO PRN (11:20)
[2020-12-30] MEDS ORDERED: NON-FORMULARY MEDICATION (Prevagen 1 TAB) PO SCH (11:20)
[2020-12-30] MEDS ORDERED: HALOPERIDOL 2 MG/1 ML UDP PO SCH (11:20)
[2020-12-30] MEDS ORDERED: oxyCODONE HCL IR 5 MG TAB (IMMEDIATE RELEASE) PO SCH (12:00)
[2020-12-30] MEDS: LORazepam 0.5 MG TAB PO SCH ×2 (12:11→20:13)
--- NOTE | 2020-12-30 12:12 | Pharmacy Report ---
Pharmacy Abx Initial Consult - Date of Service December 30, 2020 - Pharmacy Dosing Scope Date of Consult: 12/30/20 Consultation requested by: Dr. Terry Pharmacy is consulted to initiate vancomycin IV dosing therapy, order appropriate labs and adjust drug dose/frequency. - Subjective The patient is a 85 year old M admitted on 12/30/20 08:41. - Objective Height: 5 ft 9 in Weight: 49.9 kg Vital Signs (Past 12hrs): Vital Signs Temp Pulse Pulse Pulse Resp BP BP 12/30/20 11:32 37.6 C H 108 H 38 H 147/79 H 12/30/20 11:00 37.4 C 60 12 12/30/20 10:00 102 H 22 100/71 12/30/20 09:36 101 H 100/68 12/30/20 09:30 106 H 12/30/20 09:00 113 H 23 12/30/20 08:30 99 H 96/61 L 12/30/20 08:00 105 H 44 H 12/30/20 07:32 100 H 29 H 12/30/20 07:30 91/78 L 12/30/20 07:00 98 H 35 H 105/60 12/30/20 06:33 12/30/20 06:30 99 H 40 H 93/77 L 12/30/20 06:13 74 33 H 107/57 L 12/30/20 05:30 94/68 L 12/30/20 05:00 99 H 25 H 97/62 L 12/30/20 04:39 103 H 29 H 92/67 L 12/30/20 04:00 95 H 26 H 92/61 L 12/30/20 03:32 102 H 33 H 95/60 L 12/30/20 03:30 100 H 22 12/30/20 03:00 100 H 32 H 86/58 L 12/30/20 02:42 106 H 20 116/67 12/30/20 02:31 36.8 C 12/30/20 02:30 98 H 32 H 116/67 12/30/20 02:07 102 H 20 116/71 12/30/20 02:00 12/30/20 01:58 12/30/20 01:38 38.1 C H 110 H 32 H 113/57 L 12/30/20 01:37 38.1 C H 102 H 36 H 113/57 L Pulse Ox 12/30/20 11:32 93 12/30/20 11:00 94 12/30/20 10:00 95 12/30/20 09:36 12/30/20 09:30 12/30/20 09:00 12/30/20 08:30 92 12/30/20 08:00 91 12/30/20 07:32 93 12/30/20 07:30 94 12/30/20 07:00 93 12/30/20 06:33 92 12/30/20 06:30 92 12/30/20 06:13 93 12/30/20 05:30 94 12/30/20 05:00 93 12/30/20 04:39 93 12/30/20 04:00 93 12/30/20 03:32 91 12/30/20 03:30 87 L 12/30/20 03:00 90 12/30/20 02:42 92 12/30/20 02:31 12/30/20 02:30 92 12/30/20 02:07 91 12/30/20 02:00 91 12/30/20 01:58 89 L 12/30/20 01:38 92 12/30/20 01:37 91 Lab Results (24hrs): Laboratory Tests (24 Hours) 12/30/20 12/30/20 12/30/20 01:52 01:52 01:52 WBC 24.19 H Neut # (Auto) 23.74 H Creatinine 1.23 Est Cr Clr Drug Dosing 32.1 Procalcitonin 66.87 H Micro Results: 12/30/20 02:31 Aerobic Blood Culture - Pending Blood Anaerobic Blood Culture - Pending 12/30/20 01:52 Aerobic Blood Culture - Pending Blood Anaerobic Blood Culture - Pending - Risk Factors for Resistance * Immunocompromised * Antimicrobial use within the last 90 days [keflex] - Assessment & Plan Assessment 85 year old M presented with SOB, fever, chills, and abd pain/N/V. Past medical history significant for recurrent pancreatic adenocarcinoma s/p resection, splenectomy, chemo and radiation treatment, now on hospice care at home. Patient was initiated on vancomycin and cefepime IV for sepsis likely secondary to pneumonia. Patient has a slight BRENDEN (SCr -1.23mg/dL; baseline ~ 0.8mg/dL), febrile (Tmax-38.1), elevated lactate, WBC, and PCT. Blood cultures pending. MRSA nasal swab ordered. Plan Vancomycin IV * Loading dose: 1000mg (20mg/kg) * Maintenance dose: 750 mg IV (~15 mg/kg) every 24 hours to start tonight at midnight * Vancomycin ordered empirically; will obtain a trough at steady state or sooner if clinically indicated if vancomycin continued. Pharmacy will continue to follow and will adjust dose/frequency as necessary. Thank you.
[2020-12-30] MEDS: NSS + 20MEQ KCL 20 MEQ/1,000 ML BAG IV SCH ×2 (12:23→22:39)
[2020-12-30] MEDS: PANTOprazole 40 MG TAB PO SCH (12:31)
[2020-12-30] MEDS: ASPIRIN 81 MG ECTAB PO SCH (12:31)
[2020-12-30] MEDS: predniSONE 10 MG TABLET PO SCH (12:32)
[2020-12-30] MEDS: HALOPERIDOL ORAL SOLN 2 MG/ML PO SCH ×3 (12:32→20:13)
[2020-12-30] MEDS: ENOXAPARIN INJ 40 MG/0.4 ML SYR SQ SCH (12:37)
[2020-12-30] MEDS: CEFEPIME 2,000 MG in SYRINGE 0 ML IV SCH (14:43)
[2020-12-30] MEDS: metroNIDAZOLE 500 MG/100 ML BAG IV SCH ×2 (15:40→23:06)
[2020-12-30 16:43] LABS: Hematocrit (blood only) 30.9 % (42-52); Hemoglobin 10.4 g/dL (14.0-18.0); Mean Corpuscular Hemoglobin 30.8 pg (25-34); Mean Corpuscular Hgb Conc 33.7 g/dL (32-36); Mean Corpuscular Volume 91.4 fL (80-100); RDW Coefficient of Variation 15.6 % (11.5-14.5); RDW Standard Deviation 52.2 fL (36.4-46.3); Red Blood Count 3.38 M/uL (4.7-6.1); White Blood Count 45.62 K/uL (4.8-10.8)
[2020-12-30 17:04] LABS: Albumin Globulin Ratio 0.6 (0.9-2); Albumin Level 2.2 gm/dl (3.4-5.0); BUN Creatinine Ratio 21.5 (10-20); Bilirubin,Total 5.8 mg/dl (0.2-1); Creatinine Clr Calc Pharmacy 24.2 ml/min; Est GFR (African American) 44.5 ml/min; Est GFR (Non-African American) 38.4 ml/min; Globulin 3.8 gm/dl (2.5-4.0); Potassium 4.1 mmol/L (3.5-5.1)
[2020-12-30 17:11] LABS: ALC (manual) 0.41 K/uL (1.2-3.4); ANC (manual) 42.43 K/uL (1.4-6.5); Echinocytes 2+; Lymphocytes # (manual) 0.41 K/uL (1.2-3.4); Lymphocytes % (manual) 0.9 %; Metamyelocytes # (manual) 1.19 K/uL (0-0); Metamyelocytes % (manual) 2.6 %; Monocytes % (manual) 3.5 %; Neutrophils # (manual) 42.43 K/uL (1.4-6.5); Platelet Count 205 K/uL (130-400); Platelet Estimate Normal (Normal); Target Cells 1+; Toxic Vacuolation 1+
[2020-12-30] MEDS ORDERED: LORazepam 0.25 MG/0.5 ML VIAL IV PRN (17:48)
[2020-12-30] MEDS ORDERED: HALOPERIDOL LACTATE 5 MG/ML 1 ML VIAL IM PRN (20:04)
[2020-12-30] MEDS: MIRTAZAPINE TAB 15 MG TAB PO SCH (20:13)
[2020-12-30] MEDS: TAMSULOSIN HCL 0.4 MG CAP PO SCH (20:13)
[2020-12-31] MEDS ORDERED: VANCOMYCIN HCL 750 MG in SODIUM CHLORIDE 0.9% 250 ML IV SCH
[2020-12-31] MEDS: ENOXAPARIN INJ 40 MG/0.4 ML SYR SQ SCH ×2 (00:28→11:37)
[2020-12-31] MEDS: metroNIDAZOLE 500 MG/100 ML BAG IV SCH ×4 (00:42→22:27)
[2020-12-31] MEDS: CEFEPIME 2,000 MG in SYRINGE 0 ML IV SCH ×2 (01:51→14:31)
[2020-12-31] MEDS: LORazepam 0.5 MG/1 ML VIAL IV PRN ×3 (05:38→19:49)
[2020-12-31] MEDS ORDERED: MoRPHine SULFATE 2 MG/ML CARP IV STA (06:05)
[2020-12-31] MEDS ORDERED: LEVALBUTEROL 1.25MG/0.5ML NEB NEB STA (06:43)
[2020-12-31] MEDS ORDERED: HALOPERIDOL LACTATE 5 MG/ML 1 ML VIAL IM STA (06:50)
--- NOTE | 2020-12-31 07:24 | XRay Report ---
XR chest 1V portable CLINICAL HISTORY: tachypnea COMPARISON STUDY: Chest radiograph December 30, 2020. FINDINGS: Right shoulder arthroplasty is incidentally noted. Low lung volumes are again noted. Right basilar opacity favors atelectasis. Left basilar opacity is also noted. No evidence for pulmonary rayna ma. No pneumothorax or pleural effusion is present. IMPRESSION: Low lung volumes with bibasilar opacities. Right basilar opacity favors atelectasis. Lef t basilar opacity could reflect atelectasis or an infectious process. ACT 112: Negative or not required by law. Electronically signed by: Chang Padilla M.D. 12/31/2020 7:22 AM
[2020-12-31 08:02] LABS: ALC (manual) 0.31 K/uL (1.2-3.4); ANC (manual) 17.63 K/uL (1.4-6.5); Echinocytes 1+; Hematocrit (blood only) 34.7 % (42-52); Hemoglobin 11.6 g/dL (14.0-18.0); Lymphocytes # (manual) 0.31 K/uL (1.2-3.4); Lymphocytes % (manual) 1.7 %; Mean Corpuscular Hemoglobin 29.9 pg (25-34); Mean Corpuscular Hgb Conc 33.4 g/dL (32-36); Mean Corpuscular Volume 89.4 fL (80-100); Mean Platelet Volume 10.9 fL (7.4-10.4); Monocytes # (manual) 0.16 K/uL (0.11-0.59); Monocytes % (manual) 0.9 %; Neutrophils # (manual) 17.63 K/uL (1.4-6.5); Neutrophils % (manual) 97.4 %; Platelet Count 187 K/uL (130-400); Platelet Estimate Normal (Normal); RDW Coefficient of Variation 15.9 % (11.5-14.5); RDW Standard Deviation 51.7 fL (36.4-46.3); Red Blood Count 3.88 M/uL (4.7-6.1); Toxic Vacuolation 2+
[2020-12-31] MEDS: CHOLECALCIFEROL 1,000 UNITS 25 MCG TAB PO SCH (08:06)
[2020-12-31] MEDS: predniSONE 10 MG TABLET PO SCH (08:06)
[2020-12-31] MEDS: PANTOprazole 40 MG TAB PO SCH (08:06)
[2020-12-31] MEDS: HALOPERIDOL ORAL SOLN 2 MG/ML PO SCH ×3 (08:06→20:18)
[2020-12-31] MEDS: LORazepam 0.5 MG TAB PO SCH ×2 (08:06→20:19)
[2020-12-31] MEDS: ASPIRIN 81 MG ECTAB PO SCH (08:06)
[2020-12-31] MEDS: NSS + 20MEQ KCL 20 MEQ/1,000 ML BAG IV SCH (08:07)
[2020-12-31 08:16] LABS: Albumin Globulin Ratio 0.6 (0.9-2); Albumin Level 2.2 gm/dl (3.4-5.0); BUN Creatinine Ratio 35.1 (10-20); Bilirubin,Total 6.9 mg/dl (0.2-1); Calcium 8.2 mg/dl (8.5-10.1); Creatinine Clr Calc Pharmacy 30.9 ml/min; Est GFR (African American) 59.6 ml/min; Est GFR (Non-African American) 51.4 ml/min; Potassium 5.1 mmol/L (3.5-5.1); Total Protein 6.2 gm/dl (6.4-8.2)
[2020-12-31] MEDS ORDERED: DEXTROSE 50% 50 ML SYRINGE IV ONE (08:34)
[2020-12-31] MEDS: D5W AND 1/2NSS + 20MEQ KCL 20 MEQ/1,000 ML BAG IV SCH ×2 (09:07→20:12)
--- NOTE | 2020-12-31 09:55 | Communication Note ---
Date of Service: December 31, 2020 85 year old male w/ history of of adenocarcinoma of the pancreas status post resection and splenectomy in 08/2018 with chemo and radiation treatment with rec urrence on home hospice admitted w/ shortness of breath, fever with chills, abdominal pain with nausea vomiting and generalized weakness with falls - GI was asked to evaluate given positive blood cultures, rising LFTs and CT imaging showing, CBD stent in placed but resolved pneumobilia and significant increase in intrahepatic biliary ductal dilatation concerning for occlusion. Pt family is at bedside, discussed labs, imaging and blood culture with them. We did discuss ERCP for suspected cholangitis etiology mass vs sludge vs stricture vs other. At this time, they do not wish to pursue any invasive testing as pt was on hospice care at home and are wishing for a palliative care consultation. I encouraged them to reach out to our department with any questions or concerns. Please recall GI per pt and family wishes. Thank you for allowing us to participate in the care of this patient. Please call with any acute changes, questions or concerns. Please see addendum below with additional recommendation from my supervising physician.
[2020-12-31] MEDS ORDERED: MoRPHine SULFATE 5 MG/0.25 ML UDP PO PRN (11:40)
[2020-12-31] MEDS: MoRPHine SULFATE 5 MG/0.25 ML UDP PO PRN ×4 (11:53→21:09)
--- NOTE | 2020-12-31 13:19 | Hospitalist Progress Note ---
Date of Service December 31, 2020 Assessment & Plan (1) Sepsis: Likely secondary to pneumonia from aspiration and also may have cholangitis Intravenous fluids will be administered, repeat lactate will be done Started with intravenous cefepime and vancomycin Blood cultures were taken Will add intravenous Flagyl to cover anaerobes No more fever this morning and white counts seems to be improving Clinically not any better and requiring BiPAP to maintain saturation We will continue current management and discontinue intravenous vancomycin as nothing to suggest MRSA or staph infection (2) Pneumonia: Ongoing nausea and vomiting Likely has aspiration pneumonia Has been on intravenous cefepime and IV vancomycin We will continue intravenous cefepime for now (3) Pancreatic adenocarcinoma: History of pancreatic adenocarcinoma status post surgery and chemoradiation CT of the abdomen and pelvis did show widespread disease Palliative care was consulted during last admission and was under care of hospice No further treatment for the adenocarcinoma We will continue hospice care at home on improvement otherwise comfort care after about 24 to 48 hours Discussed with the family members regarding spreading metastatic disease and the cause for cholangitis secondary to possible stent obstruction and the patient has a very poor prognosis (4) Abdominal pain: (5) Shortness of breath: Secondary to pneumonia and pulmonary embolism which has been noticed on CT of the abdomen and pelvis History of pancreatic cancer and as high potential to develop thromboembolism We will start treatment with Lovenox 40 mg twice daily (6) Cholangitis: Has had biliary stent in the past and may have obstruction Likely has cholangitis Abnormal LFTs-we will monitor LFT We will cover with intravenous antibiotic Appreciate GI input and recommendation-consideration of ERCP will be given with improvement if any We will continue current intravenous antibiotic (7) Pulmonary embolism: As above Has dementia No acute confusion right now Other significant medical conditions remain reasonably stable CODE STATUS DNR/DNI Discussed with the in detail Very poor prognosis Discussed with the , daughter and the son and also hospice nurse We will continue current aggressive treatment and if there is no improvement may need to go with comfort care With improvement he will be going to go home with hospice as before Admission and Anticipated Discharge Date Admission Date: December 30, 2020 Subjective 12/31/2020 The patient was seen and examined in medical telemetry unit He has advanced and spreading metastatic pancreatic carcinoma and was admitted with septicemia secondary to cholangitis He was noted to be very short of breath early this morning and has been requiring BiPAP He was also agitated and very tachypneic and required IM Haldol and IV Ativan and morphine Remains drowsy but hemodynamically stable this morning Discussed with the family members including , daughter and the son Review of Systems Review of Systems: Unobtainable due to cognitive status Physical Exam Physical Exam: Lying in bed with shortness and semiresponsive Constitutional: + ill appearing and + thin Eyes: PERRL, conjunctivae normal, anicteric sclerae ENMT: external ear and nose normal, oropharynx normal Neck: trachea midline, no thyromegaly Respiratory: + respiratory distress (Moderate respiratory distress at rest), + retractions and + uses accessory muscles Auscultation: + diminished lung sounds and + crackles (Bilaterally more on the right base than the left) Cardiovascular: Rate/Rhythm: regular rate, regular rhythm and + tachycardic Heart Sounds: no murmur Extremities: no edema Gastrointestinal (Abdomen): Inspection/Auscultation: + abdomen distended and normal bowel sounds Percussion/Palpation: + abdomen tender (Mildly tender in the epigastrium) and abdomen soft Neurologic: Alert with commands and painful stimuli. Not been communicating well. Moves all extremities with pain Lymphatic: no cervical or axillary lymphadenopathy Results & Data Results & Data ([facility]) Vital Signs (Past 12 Hours) Vital Signs Temp Pulse Pulse Resp BP Pulse Ox 12/31/20 11:14 101 H 28 H 98 12/31/20 11:07 37.6 C H 101 H 34 H 137/76 99 12/31/20 08:00 103 H 12/31/20 07:31 37.0 C 110 H 32 H 120/67 97 12/31/20 07:07 101 H 30 H 98 12/31/20 06:55 101 H 30 H 98 12/31/20 06:25 37.1 C 105 H 42 H 108/72 88 L Laboratory Results Short CBC 12/30/20 12/31/20 Range/Units 16:14 07:16 WBC 45.62 H* D 18.10 H D (4.8-10.8) K/uL Hgb 10.4 L 11.6 L (14.0-18.0) g/dL Hct 30.9 L 34.7 L (42-52) % Plt Count 205 187 (130-400) K/uL BMP 12/30/20 12/31/20 16:14 07:16 Sodium 134 L 138 Potassium 4.1 D 5.1 D Chloride 104 110 H Carbon Dioxide 18 L 18 L BUN 35 H 45 H Creatinine 1.63 H D 1.28 D Glucose 96 51 L* Calcium 8.0 L 8.2 L Liver Function 12/30/20 12/31/20 Range/Units 16:14 07:16 Total Bilirubin 5.8 H 6.9 H (0.2-1) mg/dl AST 71 H 92 H (15-37) U/L ALT 121 H 116 H (12-78) U/L Alkaline Phosphatase 421 H 390 H (45-117) U/L Albumin 2.2 L 2.2 L (3.4-5.0) gm/dl Medications Administered Current Inpatient Medications Aspirin (Aspirin 81 Mg Ectab) 81 mg PO DAILY [facility] Stop: 01/29/21 11:19 Last Admin: 12/31/20 08:06 Dose: Not Given Documented by: Bisacodyl (Bisacodyl 10 Mg Supp) 10 mg [place] DAILY PRN PRN Reason: cons Stop: 01/29/21 11:19 Dicyclomine HCl (Dicyclomine Hcl 20 Mg Tab) 20 mg PO TID PRN PRN Reason: abdominal pain Stop: 01/29/21 11:19 Enoxaparin Sodium (Enoxaparin Inj 40 Mg/0.4 Ml Syr) 40 mg SQ Q12H [facility] Stop: 01/29/21 11:59 Last Admin: 12/31/20 11:37 Dose: 40 mg Documented by: Haloperidol Lactate (Haloperidol 2 Mg/1 Ml Udp) 0.5 mg PO Q4 PRN PRN Reason: Anxiety Stop: 01/29/21 11:19 Haloperidol Lactate (Haloperidol Oral Soln 2 Mg/Ml) 0.5 mg PO TID [facility] Stop: 01/29/21 11:29 Last Admin: 12/31/20 13:15 Dose: Not Given Documented by: Haloperidol Lactate (Haloperidol Lactate 5 Mg/Ml 1 Ml Vial) 0.5 mg IM Q4H PRN PRN Reason: Anxiety/Agitation Stop: 01/29/21 20:03 Cefepime HCl 2,000 mg/ Syringe 20 mls @ 5 mls/min IV Q12H [facility]; Protocol Stop: 01/06/21 13:59 Last Admin: 12/31/20 01:51 Dose: 5 mls/min Documented by: Metronidazole (Flagyl) 500 mg in 100 mls @ 100 mls/hr IV Q8H SUZANNE; Protocol Stop: 01/09/21 14:29 Last Infusion: 12/31/20 06:54 Dose: Infused Documented by: Lorazepam (Ativan) 0.5 mg in 1 mls @ 1 mls/min IV Q4H PRN PRN Reason: Anxiety/Agitation Stop: 01/29/21 20:03 Last Admin: 12/31/20 10:07 Dose: 1 mls/min Documented by: Potassium Chloride/Dextrose/Sod Cl (D5w And 1/2nss + 20meq Kcl) 20 meq in 1,000 mls @ 100 mls/hr IV .Q10H SUZANNE Stop: 01/30/21 08:59 Last Admin: 12/31/20 09:07 Dose: 100 mls/hr Documented by: Lorazepam (Lorazepam 0.5 Mg Tab) 0.5 mg PO BID SUZANNE Stop: 01/29/21 11:19 Last Admin: 12/31/20 08:06 Dose: Not Given Documented by: Mirtazapine (Mirtazapine Tab 15 Mg Tab) 30 mg PO HS [facility] Stop: 01/29/21 20:59 Last Admin: 12/30/20 20:13 Dose: Not Given Documented by: Miscellaneous (Dutasteride 0.5 Mg Capsule ~ Order Awaiting Action) 1 ea N/A QS [facility] Stop: 01/29/21 15:59 Last Admin: 12/31/20 08:21 Dose: Not Given Documented by: Morphine Sulfate (Morphine Sulfate 5 Mg/0.25 Ml Udp) 5 mg PO Q3H PRN PRN Reason: Shortness Of Breath Stop: 01/14/21 11:39 Last Admin: 12/31/20 11:53 Dose: 5 mg Documented by: Pantoprazole Sodium (Pantoprazole 40 Mg Tab) 40 mg PO DAILY [facility] Stop: 01/29/21 11:19 Last Admin: 12/31/20 08:06 Dose: Not Given Documented by: Prednisone (Prednisone 10 Mg Tablet) 10 mg PO QAM [facility] Stop: 01/29/21 11:19 Last Admin: 12/31/20 08:06 Dose: Not Given Documented by: Prochlorperazine (Prochlorperazine Maleate 10 Mg Tab) 10 mg PO Q6H PRN PRN Reason: Nausea Stop: 01/29/21 11:19 Tamsulosin HCl (Tamsulosin Hcl 0.4 Mg Cap) 0.4 mg PO QPM [facility] Stop: 01/29/21 20:59 Last Admin: 12/30/20 20:13 Dose: Not Given Documented by: Vitamin D (Cholecalciferol 1,000 Units 25 Mcg Tab) 5,000 units PO QAM [facility] Stop: 01/30/21 08:59 Last Admin: 12/31/20 08:06 Dose: Not Given Documented by: (1) Sepsis Sepsis acute organ dysfunction status: unspecified Sepsis type: sepsis due to unspecified organism Qualified Code(s): A41.9 - Sepsis, unspecified organism (2) Abdominal pain Abdominal location: unspecified location Qualified Code(s): R10.9 - Unspecified abdominal pain
--- NOTE | 2020-12-31 14:00 | Electrocardiogram Report ---
Test Reason : Blood Pressure : / mmHG Vent. Rate : 106 BPM Atrial Rate : 106 BPM P-R Int : 132 ms QRS Dur : 086 ms QT Int : 320 ms P-R-T Axes : 009 -34 040 degrees QTc Int : 425 ms Poor data quality, interpretation may be adversely affected Sinus tachycardia Left axis deviation Possible Lateral infarct , age undetermined Abnormal ECG When compared with ECG of 20-JUL-2018 15:25, Vent. rate has increased BY 48 BPM Borderline criteria for Lateral infarct are now Present Confirmed by Tayo Shelton ([id number]) on 12/31/2020 2:00:23 PM Referred By: REFERRED SELF Confirmed By:Tayo Shelton
[2020-12-31] MEDS ORDERED: GLUCOSE 40% GEL 15 GM TUBE PO PRN (14:45)
[2020-12-31] MEDS ORDERED: GLUCAGON FOR INJ 1 MG VIAL IM PRN (14:45)
[2020-12-31] MEDS ORDERED: DEXTROSE 50% 50 ML SYRINGE IV PRN (14:45)
[2020-12-31] MEDS ORDERED: CARBOHYDRATES FOR HYPOGLYCEMIA PO PRN (14:45)
[2020-12-31] MEDS ORDERED: GLUCOSE 10 TABS/TUBE PO PRN (14:45)
[2020-12-31] MEDS ORDERED: LEVALBUTEROL HCL 1.25 MG/3 ML NEB NEB PRN (19:36)
[2020-12-31] MEDS: LEVALBUTEROL HCL 1.25 MG/3 ML NEB NEB SCH (19:51)
[2020-12-31] MEDS: MIRTAZAPINE TAB 15 MG TAB PO SCH (20:19)
[2020-12-31] MEDS: TAMSULOSIN HCL 0.4 MG CAP PO SCH (20:19)
[2021-01-01] MEDS: LEVALBUTEROL HCL 1.25 MG/3 ML NEB NEB SCH ×3 (00:16→12:54)
[2021-01-01] MEDS: CEFEPIME 2,000 MG in SYRINGE 0 ML IV SCH ×2 (01:49→14:43)
[2021-01-01] MEDS: ENOXAPARIN INJ 40 MG/0.4 ML SYR SQ SCH ×2 (01:50→12:40)
[2021-01-01] MEDS: MoRPHine SULFATE 5 MG/0.25 ML UDP PO PRN ×3 (02:36→11:40)
[2021-01-01] MEDS: D5W AND 1/2NSS + 20MEQ KCL 20 MEQ/1,000 ML BAG IV SCH (06:03)
[2021-01-01] MEDS: metroNIDAZOLE 500 MG/100 ML BAG IV SCH (06:03)
[2021-01-01] MEDS: LORazepam 0.5 MG/1 ML VIAL IV PRN ×2 (06:45→10:43)
[2021-01-01] MEDS: ASPIRIN 81 MG ECTAB PO SCH (08:14)
[2021-01-01] MEDS: HALOPERIDOL ORAL SOLN 2 MG/ML PO SCH ×2 (08:15→13:11)
[2021-01-01] MEDS: PANTOprazole 40 MG TAB PO SCH (08:15)
[2021-01-01] MEDS: LORazepam 0.5 MG TAB PO SCH (08:15)
[2021-01-01] MEDS: CHOLECALCIFEROL 1,000 UNITS 25 MCG TAB PO SCH (08:15)
[2021-01-01] MEDS: predniSONE 10 MG TABLET PO SCH (08:16)
[2021-01-01 09:02] LABS: Hematocrit (blood only) 31.9 % (42-52); Hemoglobin 10.7 g/dL (14.0-18.0); Mean Corpuscular Hemoglobin 30.4 pg (25-34); Mean Corpuscular Hgb Conc 33.5 g/dL (32-36); Mean Corpuscular Volume 90.6 fL (80-100); Mean Platelet Volume 11.4 fL (7.4-10.4); Nucleated RBC # (auto) 0.06 K/uL (0-0); Nucleated RBC % (auto) 0.2 %; Platelet Count 132 K/uL (130-400); RDW Coefficient of Variation 16.2 % (11.5-14.5); RDW Standard Deviation 53.7 fL (36.4-46.3); Red Blood Count 3.52 M/uL (4.7-6.1); White Blood Count 28.67 K/uL (4.8-10.8)
[2021-01-01 09:45] LABS: Basophils # (auto) 0.01 K/uL (0-0.2); Dohle Bodies 2+; Echinocytes 1+; Eosinophils # (auto) 0.01 K/uL (0-0.5); Howell-Jolly Bodies 1+; Immature Granulocytes # (auto) 0.11 K/uL (0.00-0.02); Immature Granulocytes % (auto) 0.4 %; Lymphocytes # (auto) 0.56 K/uL (1.2-3.4); Monocytes # (auto) 1.36 K/uL (0.11-0.59); Monocytes % (auto) 4.7 %; Neutrophils # (auto) 26.62 K/uL (1.4-6.5); Neutrophils % (auto) 92.9 %; Toxic Vacuolation 1+
[2021-01-01 09:54] LABS: Albumin Globulin Ratio 0.4 (0.9-2); Albumin Level 1.7 gm/dl (3.4-5.0); BUN Creatinine Ratio 45.3 (10-20); Bilirubin,Total 4.5 mg/dl (0.2-1); Calcium 8.2 mg/dl (8.5-10.1); Creatinine Clr Calc Pharmacy 50.6 ml/min; Est GFR (African American) 92.1 ml/min; Est GFR (Non-African American) 79.4 ml/min; Potassium 4.5 mmol/L (3.5-5.1); Total Protein 5.7 gm/dl (6.4-8.2)
--- NOTE | 2021-01-01 10:53 | Palliative Care Consultation ---
Date of Consultation January 01, 2021 Assessment & Plan (1) Palliative care encounter: This is a 85 year old male who presented to the [facility] with sepsis related to aspiration pneumonia. He has been under Hospice since August 2020 with [facility] and was admitted under GIP services. He has an extensive medical history that includes pancreatic adenocarcinoma s/p splenectomy, chemotherapy and radiation interventions. A CT of the abdomen was performed confirming widespread disease. He had a biliary stent placed and was noted to have a possible obstruction. The patient has additional PMH that includes: dementia, BPH, anxiety, and GERD. GI was consulted and evaluated the patient. Family has decided to forgo further interventions and declined a colonscopy or ERCP. Palliative Medicine was consulted to discuss goals of care. I entered the room and the patient was having restlessness, accessory muscle breathing, furrowed brow and agitation. A nurse and I repositioned him while I was in the room and then I was able to discuss his care with his , Therese at the bedside. She agreed that he is not comfortable and she 'wants to see this suffering stop for him'. She asked me what the next step is. The patient has been receiving Roxanol every three hours consistently, but continues to experience discomfort. I discussed what her goals and wishes were, including comfort care and what that entails in detail. She has stated that it has become entirely too difficult to care for him at home and I agree that he is not stable for transfer out of hospital at this time. They have 4 adult children, one daughter and three sons. I was able to meet their daughter at the bedside who was in support of the transition to comfort measures only. We discussed this in detail and set expectations. All non comfort focused medications discontinued, including blood work and vitals aside from spot checking spo2. I discussed the above and below with the hospitalist, Dr. Rider and the patients RN in the hospital. I also discussed with Gisell RN with [facility] as patient is under GIP service, who was in support of this transition. Likely life expectancy is hours to a few days. (2) Agitation: Patient with increased restlessness. He had received Ativan and Haldol. Current orders include the following for agitation: - Ativan 1 mg SL BID - Ativan 0.5 mg IV Q4 PRN - Zyprexa 5 mg SL BID PRN (3) Dyspnea: patient with increased shortness of breath and dyspnea. Agitation and restlessness seems to be exacerbating the symptoms. Discussed at length the role of comfort measures and after discussion with family, will proceed with full transition to comfort measures. Morphine drip started at 1 mg/hour with a maximum of 10 mg/hour. Discussed appropriate titration with nursing and ability to increase every 30 minutes as necessary until comfort achieved. Look for signs of restlessness, dyspnea, increased diaphragmatic breathing/accessory muscle use, furrowed brow or any other signs indicating the patient may not be comfortable. Patients creatinine is 0.88, leaving low risk for opioid toxicity. History of Present Illness Reason for Consultation: Goals of care Requesting Physician: Dr. Rider Attending Physician: Chay Rider MD History of Present Illness This is a 85 year old male who presented to the [facility] with sepsis related to aspiration pneumonia. He has been under Hospice since August 2020 with [facility]. He has an extensive medical history that includes pancreatic adenocarcinoma s/p splenectomy, chemotherapy and radiation interventions. A CT of the abdomen was performed confirming widespread disease. He had a biliary stent placed and was noted to have a possible obstruction. The patient has additional PMH that includes: dementia, BPH, anxiety, and GERD. GI was consulted and evaluated the patient. Family has decided to forgo further interventions and declined a colonscopy or ERCP. Palliative Medicine was co nsulted to discuss goals of care. Please see A/P for further details. Allergies Allergy/AdvReac Type Severity Reaction Status Date / Time [id number] Reductase Allergy Mild myalgias Verified 12/30/20 02:46 Inhibitor morphine AdvReac Mild combative, Verified 12/30/20 02:46 N/V Home Medications Medication Instructions Recorded Confirmed Type cholecalciferol (vitamin D3) 125 mcg PO QAM 02/10/20 12/30/20 History [Vitamin D3] Mucinex Cold,Flu,Sore Throat 20 ml PO BID PRN 06/22/20 12/30/20 History tamsulosin [Flomax] 0.4 mg PO QPM 06/22/20 12/30/20 History dicyclomine 20 mg PO TID PRN #30 tab NS 06/25/20 12/30/20 Rx dutasteride 0.5 mg PO DAILY 07/26/20 12/30/20 History Prevagen 1 tab PO DAILY 12/30/20 12/30/20 History aspirin [Aspir-Low] 81 mg PO DAILY 12/30/20 12/30/20 History bisacodyl 10 mg [place] DAILY PRN 12/30/20 12/30/20 History haloperidol lactate 0.5 mg PO Q4 PRN 12/30/20 12/30/20 History haloperidol lactate 0.5 mg PO TID 12/30/20 12/30/20 History lorazepam [Ativan] 0.5 mg PO BID 12/30/20 12/30/20 History mirtazapine 30 mg PO HS 12/30/20 12/30/20 History oxycodone 5 mg PO Q4 12/30/20 12/30/20 History pantoprazole [Protonix] 40 mg PO DAILY 12/30/20 12/30/20 History prednisone 10 mg PO QAM 12/30/20 12/30/20 History prochlorperazine maleate 10 mg PO Q6H PRN 12/30/20 12/30/20 History [Compazine] Patient History Medical History (Updated 01/01/21 @ 15:26 by STACEY Berger) Agitation Anemia Aneurysm of aorta ascending aorta (follows with Dr. Verma; 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) Anxiety Cancer pancreas (dx 2018) s/p resection/chemo/xrt, currently under surveillance by oncology Cleft palate S/p revision of nose surgeries for cleft lip and palate per records Dementia Dyspnea Enlarged prostate GERD (gastroesophageal reflux disease) Hyperlipidemia Hypertension no meds Memory changes Palliative care encounter Pulmonary nodule denies Surgical History H/O esophagogastroduodenoscopy H/O prostate biopsy History of arthroscopy of shoulder History of back surgery Lumbar spine fusion, 1997 History of dental surgery dental implants placed History of incisional hernia repair lap incisional hernia repair, open left spigelian hernia repair: 02/22/2020: Grade view 1, MAC #3, ETT 7.0 at [facility] History of laparotomy partial removal pancreas/gallbladder/spleen (08/2018) History of repair of right rotator cuff History of reverse total replacement of right shoulder joint History of surgery Multiple surgeries to revise nose for cleft lip/palate Hx of appendectomy age 8 Hx of cataract surgery R/L Hx of colonoscopy S/P cholecystectomy Family History Brother Prostate cancer Heart disease Kidney stones Father Cancer Sister Breast cancer Other Alzheimer disease No family history of adverse response to anesthesia Social History Smoking Status: Unknown if ever smoked Second Hand Exposure: No; Preferred Language: Spanish Communication Ability: Impaired Communication Ability Comment: AMS , BASELINE DEMINTIA Visual Impairment: No Limitations Hearing Ability: Hard of Hearing 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 Required: No Beliefs That Will Affect Care: None marital status: Current Living Situation: Spouse Current Living Situation Comment: LIVES WITH FAMILY [facility] Feels Safe at Home: Yes Assistive Devices: Oxygen - Continuous Review of Systems Review of Systems: [place] System Assessment Scale Pain: 2/3 by obs Anxiety: 2/3 by obs Drowsiness: 0/3 SOB: 3/3 by oBs PPS: 20% Physical Exam Constitutional: + acute distress and + frail appearing; + uncomfortable ENMT: Nose: + dry nasal mucous membranes Respiratory: + labored breathing, + uses accessory muscles, + tachypneic and + grunting Auscultation: + rhonchi Cardiovascular: Rate/Rhythm: + tachycardic Heart Sounds: normal S1 and normal S2 Extremities: normal capillary refill; no edema Gastrointestinal (Abdomen): normal bowel sounds, soft, nontender, no hepatosplenomegaly Percussion/Palpation: + abdomen tender Skin: + dry skin and + pallor Psychiatric: Orientation: alert; + not oriented x 3 Results & Data ([facility]) Vital Signs (Past 12 Hours) Vital Signs Temp Pulse Pulse Resp BP Pulse Ox 01/01/21 08:15 36.2 C L 78 16 121/73 98 01/01/21 08:00 82 01/01/21 07:35 36.3 C L 83 20 115/74 100 01/01/21 07:34 83 22 98 01/01/21 04:56 36.0 C L 93 H 20 103/51 L 98 12/31/20 23:25 36.4 C L 94 H 20 105/66 94 PG Care Time/CCT Total # of Minutes Spent Total Time Spent with Patient: Total time spent is greater than 50% in coordi nation of care (as documented) at patient's floor/unit and/or counseling patient: 100 minutes with > 50% of that time spent assessing the patient, discussing goals of care with family, providing symptom management and collaborating with IDT Coding Level of Care Code 94160 Inpt Consult Level 4 Diagnoses Palliative care encounter Z51.5 Agitation R45.1 Dyspnea R06.00 Time Spent (min) 100
--- NOTE | 2021-01-01 13:04 | Hospitalist Progress Note ---
Date of Service January 01, 2021 Assessment & Plan (1) Sepsis: Secondary to ascending cholangitis May be complicated by aspiration pneumonia Received intravenous fluid on admission Started with intravenous cefepime and vancomycin And later on Flagyl was added to cover anaerobes Blood culture grew Klebsiella pneumoniae-sensitive to cefepime. Vancomycin discontinued Condition has been a little worse today Remains critical but stable Palliative care consulted for further goals of care Discussed with the today and answered all of her questions (2) Pneumonia: Ongoing nausea and vomiting Likely has aspiration pneumonia Has been on intravenous cefepime and IV vancomycin We will continue intravenous cefepime for now (3) Pancreatic adenocarcinoma: History of pancreatic adenocarcinoma status post surgery and chemoradiation CT of the abdomen and pelvis did show widespread disease Palliative care was consulted during last admission and was under care of hospice No further treatment for the adenocarcinoma We will continue hospice care at home on improvement otherwise comfort care after about 24 to 48 hours Discussed with the family members regarding spreading metastatic disease and the cause for cholangitis secondary to possible stent obstruction and the patient has a very poor prognosis Palliative care is consulted for further goals of care (4) Abdominal pain: (5) Shortness of breath: Secondary to pneumonia and pulmonary embolism which has been noticed on CT of the abdomen and pelvis History of pancreatic cancer and as high potential to develop thromboembolism We will start treatment with Lovenox 40 mg twice daily Has been requiring intravenous morphine and/or Ativan to control tachypnea and restlessness (6) Cholangitis: Has had biliary stent in the past and may have obstruction Likely has cholangitis Abnormal LFTs-we will monitor LFT We will cover with intravenous antibiotic Appreciate GI input and recommendation-consideration of ERCP will be given with improvement if any We will continue current intravenous antibiotic LFTs are minimally improved but white count increased as well Remains critical but otherwise stable (7) Pulmonary embolism: As above Has dementia No acute confusion right now Other significant medical conditions remain reasonably stable CODE STATUS DNR/DNI Discussed with the in detail Very poor prognosis Discussed with the , daughter and the son and also hospice nurse We will continue current aggressive treatment and if there is no improvement may need to go with comfort care With improvement he will be going to go home with hospice as before Likely going towards comfort care from here-await palliative evaluation Admission and Anticipated Discharge Date Admission Date: December 30, 2020 Subjective 12/31/2020 The patient was seen and examined in medical telemetry unit He has advanced and spreading metastatic pancreatic carcinoma and was admitted with septicemia secondary to cholangitis He was noted to be very short of breath early this morning and has been requiring BiPAP He was also agitated and very tachypneic and required IM Haldol and IV Ativan and morphine Remains drowsy but hemodynamically stable this morning Discussed with the family members including , daughter and the son 01/01/2021 The patient was seen and examined in medical telemetry unit He was noted to be agitated with increasing shortness of breath Opening eyes and holding hands with commands but no other meaningful conversation Condition seems to be worsening Review of Systems Review of Systems: Unobtainable due to cognitive status Physical Exam Physical Exam: Lying in bed with shortness of breath and semiresponsive Constitutional: + ill appearing and + thin Eyes: PERRL, conjunctivae normal, anicteric sclerae ENMT: external ear and nose normal, oropharynx normal Neck: trachea midline, no thyromegaly Respiratory: + respiratory distress (Moderate respiratory distress at rest), + retractions and + uses accessory muscles Auscultation: + diminished lung sounds, + crackles (Bilaterally more on the right base than the left) and + wheezes Cardiovascular: Rate/Rhythm: regular rate, regular rhythm and + tachycardic Heart Sounds: no murmur Extremities: no edema Gastrointestinal (Abdomen): Inspection/Auscultation: + abdomen distended and normal bowel sounds Percussion/Palpation: + abdomen tender (Mildly tender in the epigastrium) and abdomen soft Musculoskeletal: No acute arthritis in any joint Neurologic: Alert and awake. Responsive to vocal commands with opening eyes and squeezing the fingers but no meaningful conversation Lymphatic: no cervical or axillary lymphadenopathy Results & Data Results & Data ([facility]) Vital Signs (Past 12 Hours) Vital Signs Temp Pulse Pulse Resp BP Pulse Ox 01/01/21 12:54 82 21 99 01/01/21 11:35 36.1 C L 78 16 126/71 90 01/01/21 11:15 36.4 C L 86 20 117/73 95 01/01/21 08:15 36.2 C L 78 16 121/73 98 01/01/21 08:00 82 01/01/21 07:35 36.3 C L 83 20 115/74 100 01/01/21 07:34 83 22 98 01/01/21 04:56 36.0 C L 93 H 20 103/51 L 98 Laboratory Results Short CBC 01/01/21 Range/Units 08:43 WBC 28.67 H (4.8-10.8) K/uL Hgb 10.7 L (14.0-18.0) g/dL Hct 31.9 L (42-52) % Plt Count 132 (130-400) K/uL BMP 01/01/21 08:43 Sodium 139 Potassium 4.5 Chloride 114 H Carbon Dioxide 19 L BUN 40 H Creatinine 0.88 D Glucose 167 H Calcium 8.2 L Liver Function 01/01/21 Range/Units 08:43 Total Bilirubin 4.5 H (0.2-1) mg/dl AST 61 H (15-37) U/L ALT 83 H (12-78) U/L Alkaline Phosphatase 292 H (45-117) U/L Albumin 1.7 L (3.4-5.0) gm/dl Medications Administered Current Inpatient Medications Aspirin (Aspirin 81 Mg Ectab) 81 mg PO DAILY SUZANNE Stop: 01/29/21 11:19 Last Admin: 01/01/21 08:14 Dose: Not Given Documented by: Bisacodyl (Bisacodyl 10 Mg Supp) 10 mg TX DAILY PRN PRN Reason: cons Stop: 01/29/21 11:19 Dextrose (Dextrose 50% 50 Ml Syringe) 25 - 50 ml IV UD PRN; Protocol PRN Reason: Hypoglycemia Protocol Stop: 01/30/21 14:44 Dicyclomine HCl (Dicyclomine Hcl 20 Mg Tab) 20 mg PO TID PRN PRN Reason: abdominal pain Stop: 01/29/21 11:19 Enoxaparin Sodium (Enoxaparin Inj 40 Mg/0.4 Ml Syr) 40 mg SQ Q12H SUZANNE Stop: 01/29/21 11:59 Last Admin: 01/01/21 12:40 Dose: 40 mg Documented by: Glucagon (Glucagon For Inj 1 Mg Vial) 1 mg IM UD PRN; Protocol PRN Reason: Hypoglycemia Protocol Stop: 01/30/21 14:44 Glucose (Glucose 40% Gel 15 Gm Tube) 15 - 30 gm PO UD PRN; Protocol PRN Reason: Hypoglycemia Protocol Stop: 01/30/21 14:44 Glucose (Glucose 10 Tabs/Tube) 4 - 8 tabs PO UD PRN; Protocol PRN Reason: Hypoglycemia Protocol Stop: 01/30/21 14:44 Haloperidol Lactate (Haloperidol 2 Mg/1 Ml Udp) 0.5 mg PO Q4 PRN PRN Reason: Anxiety Stop: 01/29/21 11:19 Haloperidol Lactate (Haloperidol Oral Soln 2 Mg/Ml) 0.5 mg PO TID SUZANNE Stop: 01/29/21 11:29 Last Admin: 01/01/21 08:15 Dose: Not Given Documented by: Haloperidol Lactate (Haloperidol Lactate 5 Mg/Ml 1 Ml Vial) 0.5 mg IM Q4H PRN PRN Reason: Anxiety/Agitation Stop: 01/29/21 20:03 Cefepime HCl 2,000 mg/ Syringe 20 mls @ 5 mls/min IV Q12H SUZANNE; Protocol Stop: 01/06/21 13:59 Last Admin: 01/01/21 01:49 Dose: 5 mls/min Documented by: Metronidazole (Flagyl) 500 mg in 100 mls @ 100 mls/hr IV Q8H SUZANNE; Protocol Stop: 01/09/21 14:29 Last Infusion: 01/01/21 07:07 Dose: Infused Documented by: Lorazepam (Ativan) 0.5 mg in 1 mls @ 1 mls/min IV Q4H PRN PRN Reason: Anxiety/Agitation Stop: 01/29/21 20:03 Last Admin: 01/01/21 10:43 Dose: 1 mls/min Documented by: Potassium Chloride/Dextrose/Sod Cl (D5w And 1/2nss + 20meq Kcl) 20 meq in 1,000 mls @ 100 mls/hr IV .Q10H SUZANNE Stop: 01/30/21 08:59 Last Admin: 01/01/21 06:03 Dose: 100 mls/hr Documented by: Levalbuterol HCl (Levalbuterol Hcl 1.25 Mg/3 Ml Neb) 1.25 mg NEB Q4H PRN PRN Reason: Shortness Of Breath Or Wheezing Stop: 01/30/21 19:35 Levalbuterol HCl (Levalbuterol Hcl 1.25 Mg/3 Ml Neb) 1.25 mg NEB Q6R SUZANNE Stop: 01/30/21 19:44 Last Admin: 01/01/21 12:54 Dose: 1.25 mg Documented by: Lorazepam (Lorazepam 0.5 Mg Tab) 0.5 mg PO BID SUZANNE Stop: 01/29/21 11:19 Last Admin: 01/01/21 08:15 Dose: Not Given Documented by: Mirtazapine (Mirtazapine Tab 15 Mg Tab) 30 mg PO HS SUZANNE Stop: 01/29/21 20:59 Last Admin: 12/31/20 20:19 Dose: Not Given Documented by: Miscellaneous (Dutasteride 0.5 Mg Capsule ~ Order Awaiting Action) 1 ea N/A QS SUZANNE Stop: 01/29/21 15:59 Last Admin: 01/01/21 07:18 Dose: Not Given Documented by: Miscellaneous (Carbohydrates For Hypoglycemia ) 15 - 30 gm PO UD PRN PRN Reason: Hypoglycemia Treatment Stop: 01/30/21 14:44 Morphine Sulfate (Morphine Sulfate 5 Mg/0.25 Ml Udp) 5 mg PO Q3H PRN PRN Reason: Shortness Of Breath Stop: 01/14/21 11:39 Last Admin: 01/01/21 11:40 Dose: 5 mg Documented by: Pantoprazole Sodium (Pantoprazole 40 Mg Tab) 40 mg PO DAILY [facility] Stop: 01/29/21 11:19 Last Admin: 01/01/21 08:15 Dose: Not Given Documented by: Prednisone (Prednisone 10 Mg Tablet) 10 mg PO QAM [facility] Stop: 01/29/21 11:19 Last Admin: 01/01/21 08:16 Dose: Not Given Documented by: Prochlorperazine (Prochlorperazine Maleate 10 Mg Tab) 10 mg PO Q6H PRN PRN Reason: Nausea Stop: 01/29/21 11:19 Tamsulosin HCl (Tamsulosin Hcl 0.4 Mg Cap) 0.4 mg PO QPM SUZANNE Stop: 01/29/21 20:59 Last Admin: 12/31/20 20:19 Dose: Not Given Documented by: Vitamin D (Cholecalciferol 1,000 Units 25 Mcg Tab) 5,000 units PO QAM [facility] Stop: 01/30/21 08:59 Last Admin: 01/01/21 08:15 Dose: Not Given Documented by: (1) Sepsis Sepsis acute organ dysfunction status: unspecified Sepsis type: sepsis due to unspecified organism Qualified Code(s): A41.9 - Sepsis, unspecified organism (2) Abdominal pain Abdominal location: unspecified location Qualified Code(s): R10.9 - Unspecified abdominal pain
[2021-01-01] MEDS ORDERED: STAT IV Infusion **Titration per Protocol STA (14:14)
[2021-01-01] MEDS ORDERED: MoRPHine SULF/NSS 250 MG/250 ML BTL IV SCH (14:15)
[2021-01-01] MEDS ORDERED: OLANZapine 5 MG TABLET PO PRN (15:22)
[2021-01-01] MEDS ORDERED: LORazepam 1 MG TAB PO SCH (21:00)
[2021-01-02] MEDS ORDERED: LORazepam 1 MG TAB SL SCH (09:00)
--- NOTE | 2021-01-02 10:51 | Hospitalist Progress Note ---
Date of Service January 02, 2021 Assessment & Plan (1) Sepsis: Secondary to ascending cholangitis May be complicated by aspiration pneumonia Initial resuscitation efforts were not successful and converted him to palliative measures yesterday. Cont Tylenol as needed for diaphoresis and zari vated temp in setting of known infection. May also use Ibuprofen if this is not effective. Palliative team following. (2) Pneumonia: (3) Pancreatic adenocarcinoma: History of pancreatic adenocarcinoma status post surgery and chemoradiation CT of the abdomen and pelvis did show widespread disease Palliative care was consulted during last admission and was under care of hospice No further treatment for the adenocarcinoma recommended per recent notes. Cont current palliative care measures. (4) Cholangitis: Has had biliary stent in the past and may have obstruction Likely has cholangitis driving sepsis picture. Plan as above. (5) Pulmonary embolism: Initial CT a/p wtih IV contrast revealed a likely pulmonary embolus within the left lower lobe pulmonary artery. No anticoagulation as he is on comfort care measures. Using oxymask for oxygen supplementation and decreased air hunger. Continues on the morphine drip for any pain. Tylenol for fevers that could be from infection or acute PE. (6) Comfort measures only status: Cont morphine drip, Tylenol as needed. Remove PIV in left arm-discussed with primary nurse. Cont current treatment. Palliative team following. I discussed the plan with his who is at bedside and she verbalized understanding of the plan. All her questions were answered to her satisfaction. Jess Peña DO [facility] and Anticipated Discharge Date Admission Date: December 30, 2020 Subjective 85 yo M with sepsis secondary to ascending cholangitis, may be complicated by aspiration pneumonia, found to have Klebsiella bacteremia. Now on comfort care measures. He is obtunded and ROS is unobtainable. at bedside. There is swelling in left arm around second IV site which will be removed. He is diaphoretic and feels warm. Heavy blankets were removed and IV Tylenol started. Mostly mouth breathing. Converted mask to oxymask for increased comfort in setting of a septal deviation and known h/o nasal problems in the past per . Morphine drip ongoing at 5mg/hr. Review of Systems Review of Systems: Unobtainable due to cognitive status Physical Exam Physical Exam: CONSTITUTIONAL: WNWD, obtunded EYES: closed. ENT: mouth breathing NECK: trachea midline RESPIRATORY: clear to auscultation bilaterally, no crackles, rales or wheezes, spaced large breaths with some audible upper airway noise. CARDIOVASCULAR: regular rate and rhythm, S1 and 2 heard without murmurs, gallops or rubs, no peripheral edema GASTROINTESTINAL: soft, nondistended, no guarding. MUSCULOSKELETAL: obtunded SKIN: warm and diaphoretic NEUROLOGIC: obtunded Results & Data Results & Data ([facility]) Medications Administered Current Inpatient Medications Haloperidol Lactate (Haloperidol 2 Mg/1 Ml Udp) 0.5 mg PO Q4 PRN PRN Reason: Anxiety Stop: 01/29/21 11:19 Lorazepam (Ativan) 0.5 mg in 1 mls @ 1 mls/min IV Q4H PRN PRN Reason: Anxiety/Agitation Stop: 01/29/21 20:03 Last Admin: 01/01/21 10:43 Dose: 1 mls/min Documented by: Morphine Sulfate (Morphine Sulf/Nss) 250 mg in 250 mls @ 5 mls/hr IV .Q50H SUZANNE; Protocol Stop: 01/15/21 14:14 Last Titration: 01/02/21 06:55 Dose: 5 mg/hr, 5 mls/hr Documented by: Lorazepam (Lorazepam 1 Mg Tab) 1 mg SL BID SUZANNE Stop: 02/01/21 08:59 Last Admin: 01/02/21 08:24 Dose: Not Given Documented by: Olanzapine (Olanzapine 5 Mg Tablet) 5 mg PO BID PRN PRN Reason: Agitation Stop: 01/31/21 20:59 (1) Sepsis Sepsis acute organ dysfunction status: unspecified Sepsis type: sepsis due to unspecified organism Qualified Code(s): A41.9 - Sepsis, unspecified organism
[2021-01-02] MEDS ORDERED: ACETAMINOPHEN 1000 MG/100 ML IV IV PRN (11:27)
--- NOTE | 2021-01-02 14:22 | Palliative Care Progress Note ---
Date of Service January 02, 2021 Assessment & Plan (1) Palliative care encounter: Mr. aPlomo appears to be actively dying. I spoke with his at bedside about what to expect. He is likely to within hours. He appears comfortable and I reassured her that he is not suffering. Hospice nurse present during visit. Mrs. Palomo is calling family to come in. She feels that she is coping ok but is concerned about her son. I will be available to talk with him if desired. She will let RN know. (2) Dyspnea: (3) Agitation: (4) Pancreatic adenocarcinoma: (5) Sepsis: Admission and Anticipated Discharge Date Admission Date: December 30, 2020 Subjective Unresponsive. Appears comfortable. Continues on morphine infusion. Review of Systems Review of Systems: Unobtainable due to reduced consciousness [place] Symptom Assessment Scale PainAD 0/3 Dyspnea by observation 0/3 Palliative Performance Score 10% Physical Exam Constitutional: no acute distress ENMT: Mouth: + dry oral mucous membranes Respiratory: agonal respirations, no audible rhonchi Cardiovascular: no mottling Gastrointestinal (Abdomen): Percussion/Palpation: abdomen soft Musculoskeletal: Extremities: + muscle atrophy Skin: cool Neurologic: + obtunded no myoclonus PG Care Time/CCT Total # of Minutes Spent Total Time Spent with Patient: Total time spent is greater than 50% in coordination of care (as documented) at patient's floor/unit and/or counseling patient: total time spent 25 minutes with more than 50% of time spent on p rognosis, family education and support. Coding Level of Care Code 31702 Subseq Hosp Care Lvl 2 Diagnoses Palliative care encounter Z51.5 Dyspnea R06.00 Agitation R45.1 Pancreatic adenocarcinoma C25.9 Sepsis A41.9 Sepsis acute organ dysfunction status: unspecified Sepsis type: sepsis due to unspecified organism (1) Sepsis Sepsis acute organ dysfunction status: unspecified Sepsis type: sepsis due to unspecified organism Qualified Code(s): A41.9 - Sepsis, unspecified organism
--- NOTE | 2021-01-02 19:11 | Discharge Summary ---
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 He has had a recent course of Keflex for phlebitis involving the legs. He has been having more shortness of breath, fever with chills, abdominal pain with nausea vomiting and generalized weakness with falls which has been going on for the last 1 week or so and the condition has gotten worse for the last 2 days. Denies any headache, blurred vision, any numbness or tingling involving any of the extremities and does not have any localized weakness. Denies any chest pain and/or palpitation. He was noted to have fever, tachycardia, tachypnea, low saturation, increased white count and evidence of right more than left basilar infiltrate on x-ray and has probable cholangitis. Blood cultures were taken and he was started with intravenous cefepime and vancomycin and also given Lovenox for pulmonary embolism. He was admitted to [facility] with telemetry for continuation of care. Admission Exam Per Admitting Provider Physical Exam: Lying in bed with shortness of breath and anxiety Constitutional: + ill appearing and + thin Eyes: PERRL, conjunctivae normal, anicteric sclerae ENMT: external ear and nose normal, oropharynx normal Neck: trachea midline, no thyromegaly Respiratory: + respiratory distress (Moderate respiratory distress at rest), + retractions and + uses accessory muscles Auscultation: + diminished lung sounds and + crackles (Bilaterally more on the right base than the left) Cardiovascular: Rate/Rhythm: regular rate, regular rhythm and + tachycardic Heart Sounds: no murmur Extremities: no edema Gastrointestinal (Abdomen): Inspection/Auscultation: + abdomen distended and normal bowel sounds Percussion/Palpation: + abdomen tender (Mildly tender in the epigastrium) and abdomen soft Musculoskeletal: No acute arthritis in any joint Neurologic: Alert and awake. Pleasantly confused. Has dementia. Extremely weak and tired Lymphatic: no cervical or axillary lymphadenopathy Principal Diagnosis Acute respiratory failure Sepsis Possible ascending cholangitis in setting of obstructed common bile duct stent Possible aspiration pneumonia Klebsiella bacteremia Acute pulmonary embolus Pancreatic adenocarcinoma with metastatic disease Discharge Exam see note Discharge Data Allergies Allergy/AdvReac Type Severity Reaction Status Date / Time [id number] Reductase Allergy Mild myalgias Verified 12/30/20 02:46 Inhibitor morphine AdvReac Mild combative, Verified 12/30/20 02:46 N/V Consultations 12/30/20 07:38 ED Decision to Admit Stat 12/31/20 08:55 Consult Gastroenterology Routine 01/01/21 08:00 Consult Palliative Care Routine Ordered Studies Laboratory Results WBC 28.67 K/uL (4.8-10.8) H 01/01/21 08:43 RBC 3.52 M/uL (4.7-6.1) L 01/01/21 08:43 Hgb 10.7 g/dL (14.0-18.0) L 01/01/21 08:43 Hct 31.9 % (42-52) L 01/01/21 08:43 MCV 90.6 fL (80-100) 01/01/21 08:43 MCH 30.4 pg (25-34) 01/01/21 08:43 MCHC 33.5 g/dL (32-36) 01/01/21 08:43 RDW Std Deviation 53.7 fL (36.4-46.3) H 01/01/21 08:43 RDW Coeff of Jillian 16.2 % (11.5-14.5) H 01/01/21 08:43 Plt Count 132 K/uL (130-400) 01/01/21 08:43 MPV 11.4 fL (7.4-10.4) H 01/01/21 08:43 Immature Gran % (Auto) 0.4 % 01/01/21 08:43 Neut % (Auto) 92.9 % 01/01/21 08:43 Lymph % (Auto) 2.0 % 01/01/21 08:43 [place] % (Auto) 4.7 % 01/01/21 08:43 Eos % (Auto) 0.0 % 01/01/21 08:43 Baso % (Auto) 0.0 % 01/01/21 08:43 Neut # (Auto) 26.62 K/uL (1.4-6.5) H 01/01/21 08:43 Lymph # (Auto) 0.56 K/uL (1.2-3.4) L 01/01/21 08:43 [place] # (Auto) 1.36 K/uL (0.11-0.59) H 01/01/21 08:43 Eos # (Auto) 0.01 K/uL (0-0.5) 01/01/21 08:43 Baso # (Auto) 0.01 K/uL (0-0.2) 01/01/21 08:43 Immature Gran # (Auto) 0.11 K/uL (0.00-0.02) H 01/01/21 08:43 Absolute Nucleated RBC 0.06 K/uL (0-0) H 01/01/21 08:43 Nucleated RBC % (auto) 0.2 % 01/01/21 08:43 Neutrophils % (Manual) 97.4 % 12/31/20 07:16 Lymphocytes % (Manual) 1.7 % 12/31/20 07:16 Monocytes % (Manual) 0.9 % 12/31/20 07:16 Metamyelocytes % (Man) 2.6 % 12/30/20 16:14 Neutrophils # (Manual) 17.63 K/uL (1.4-6.5) H 12/31/20 07:16 Total Absolute Neuts 17.63 K/uL (1.4-6.5) H 12/31/20 07:16 Lymphocytes # (Manual) 0.31 K/uL (1.2-3.4) L 12/31/20 07:16 Total Abs Lymphocytes 0.31 K/uL (1.2-3.4) L 12/31/20 07:16 Monocytes # (Manual) 0.16 K/uL (0.11-0.59) 12/31/20 07:16 Metamyelocytes # (Man) 1.19 K/uL (0-0) H 12/30/20 16:14 Toxic Vacuolation 1+ 01/01/21 08:43 Dohle Bodies 2+ 01/01/21 08:43 Platelet Estimate Normal (Normal) 12/31/20 07:16 Target Cells 1+ 12/30/20 16:14 Ewing-Poydras Bodies 1+ 01/01/21 08:43 Echinocytes 1+ 01/01/21 08:43 PT 11.9 Seconds (9.0-12.0) 12/30/20 01:52 INR 1.2 (0.9-1.1) H 12/30/20 01:52 APTT 28.7 Seconds (21.0-31.0) 12/30/20 01:52 PTT Ratio 1.1 12/30/20 01:52 Sodium 139 mmol/L (136-145) 01/01/21 08:43 Potassium 4.5 mmol/L (3.5-5.1) 01/01/21 08:43 Chloride 114 mmol/L (98-107) H 01/01/21 08:43 Carbon Dioxide 19 mmol/L (21-32) L 01/01/21 08:43 Anion Gap 6.0 (3-11) 01/01/21 08:43 BUN 40 mg/dl (7-18) H 01/01/21 08:43 Creatinine 0.88 mg/dl (0.6-1.4) D 01/01/21 08:43 Est Cr Clr Drug Dosing 50.6 ml/min 01/01/21 08:43 Est GFR ( Amer) 92.1 ml/min 01/01/21 08:43 Est GFR (Non-Af Amer) 79.4 ml/min 01/01/21 08:43 BUN/Creatinine Ratio 45.3 (10-20) H 01/01/21 08:43 Glucose 167 mg/dl (70-99) H 01/01/21 08:43 POC Glucose 187 mg/dl (70-99) H 01/01/21 06:02 Lactate 9.3 mmol/L (0.4-2.0) H* 12/30/20 09:31 Calcium 8.2 mg/dl (8.5-10.1) L 01/01/21 08:43 Magnesium 1.6 mg/dl (1.8-2.4) L 12/30/20 01:52 Total Bilirubin 4.5 mg/dl (0.2-1) H 01/01/21 08:43 AST 61 U/L (15-37) H 01/01/21 08:43 ALT 83 U/L (12-78) H 01/01/21 08:43 Alkaline Phosphatase 292 U/L (45-117) H 01/01/21 08:43 Troponin I 0.116 ng/ml (0-0.045) H* 12/30/20 01:52 Total Protein 5.7 gm/dl (6.4-8.2) L 01/01/21 08:43 Albumin 1.7 gm/dl (3.4-5.0) L 01/01/21 08:43 Globulin 4.0 gm/dl (2.5-4.0) 01/01/21 08:43 Albumin/Globulin Ratio 0.4 (0.9-2) L 01/01/21 08:43 Procalcitonin 66.87 ng/ml (0-0.5) H 12/30/20 01:52 Urine Color Morelia 12/30/20 06:50 Urine Appearance Slightly Cloudy (Clear) 12/30/20 06:50 Urine pH (4.5-7.5) 12/30/20 06:50 Ur Specific [place] 1.049 (1.000-1.030) H 12/30/20 06:50 Urine Protein (Negative) 12/30/20 06:50 Urine Glucose (UA) (Negative) 12/30/20 06:50 Urine Ketones (Negative) 12/30/20 06:50 Urine Blood (Negative) 12/30/20 06:50 Urine Nitrite (Negative) 12/30/20 06:50 Urine Bilirubin (Negative) 12/30/20 06:50 Urine Urobilinogen (Negative) 12/30/20 06:50 Ur Leukocyte Esterase (Negative) 12/30/20 06:50 Urine WBC (Auto) 5-10 /hpf (0-5) H 12/30/20 06:50 Urine RBC (Auto) 0-4 /hpf (0-4) 12/30/20 06:50 U Hyaline Cast (Auto) 1-5 /lpf (0-5) 12/30/20 06:50 U Epithel Cells (Auto) 0-5 /lpf (0-5) 12/30/20 06:50 Urine Bacteria (Auto) Negative (Negative) 12/30/20 06:50 Nasal Screen MRSA (PCR) Negative (Negative) 12/30/20 20:30 COVID-19 Eval Order Covid19 at [facility] 12/30/20 01:52 SARS-CoV-2 (PCR) NEGATIVE (Negative) 12/30/20 01:52 Impressions Abdomen/Pelvis CT 12/30/20 03:02 CT SCAN OF THE ABDOMEN AND PELVIS WITH IV CONTRAST CLINICAL HISTORY: Fever. Vomiting. COMPARISON STUDY: Abdominal CT dated 07/26/2020. TECHNIQUE: Following the IV administration of 94 cc of Optiray 320, CT scan of the abdomen and pelvis is performed from the lung bases to the proximal femora. Images are reviewed in the axial, sagittal, and coronal planes. IV contrast was administered without complication. A dose lowering technique was utilized adhering to the principles of ALARA. The examination is compromised by motion artifact, as well as by streak artifact from the arms which could not be elevated above the abdomen. CT DOSE: 345.10 mGy.cm FINDINGS: Lung bases: The heart is mildly enlarged and without pericardial effusion. The coronary arteries are densely calcified. Dependent airspace opacities likely represent atelectasis. There are trace pleural effusions there is a tiny hiatal hernia. There is likely pulmonary embolus within the left lower lobe pulmonary artery. Liver: The contrast-enhanced liver is normal in size, contour, and attenuation. There is moderate intrahepatic biliary ductal dilatation. This has significantly increased from previous. The main portal vein is markedly narrowed with only trace flow as seen on axial image #151. The intrahepatic portal veins and hepatic veins are patent. A common bile duct stent is in place. Pneumobilia seen previously is no longer identified, suggesting occlusion of the stent. Peritoneal implants scallops the hepatic capsule scattered hepatic metastases measure up to 2.1 cm seen on image #114. Gallbladder: Surgically absent noting clips in the gallbladder fossa. Spleen: The spleen is not identified and presumed surgically absent. Pancreas: The distal pancreas is surgically absent. The pancreatic head appears enlarged and heterogeneous. The pancreatic duct is markedly dilated measuring up to 11 mm, and the remaining pancreatic body is atrophic. Adrenal glands: Unremarkable. Kidneys: The contrast enhanced kidneys demonstrate mild cortical atrophy and are without hydronephrosis. The kidneys enhance symmetrically. Abdominal vasculature: There is advanced atherosclerotic calcification of the abdominal aorta. 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 A posteriorly oriented aneurysm eccentric to the right seen on image #211 measures 2.3 cm. A large aneurysm oriented to the right on image #227 measures up to 2.8 cm, and a more inferiorly located aneurysm eccentric to the right on image #257 measures 2.1 cm. Bowel: There is moderate to advanced colonic diverticulosis without CT evidence of acute diverticulitis. Mild fecal retention is seen throughout the colon. No bowel obstruction is identified The small bowel and colon are normal in course and caliber. The appendix is nonvisualized. Peritoneum: There is evidence of peritoneal carcinomatosis with a small volume of ascites. This has progressed as compared to 07/26/2020. Peritoneal lesions in the left upper quadrant below the diaphragm measure up to 5.5 cm in aggregate dimension. Low-attenuation lesions are seen scalloping the liver on images #78 and #106. There is no intraperitoneal free air or abdominal ascites. Lymphadenopathy: There is bulky confluent upper abdominal lymphadenopathy within the hepatic hilum. This measures approximately 7 x 3.5 cm in aggregate dimension. There is retroperitoneal lymphadenopathy. A left periaortic node on image #238 measures 3.1 x 2.4 cm. Pelvic viscera: The prostate gland is markedly enlarged and heterogeneous measuring up to 6.1 cm transverse diameter. There is median lobe hypertrophy. The bladder wall appears thickened and trabeculated indicating chronic outlet obstruction. There are small bilateral fat-containing inguinal hernias. Skeletal structures: The skeletal structures are osteopenic. There is lumbosacral spondylosis with postoperative change in the lower lumbar spine. No lytic or blastic lesions are seen. A right shoulder arthroplasty is partially visualized. IMPRESSION: 1. There is likely pulmonary embolus within branches of the left lower lobe pulmonary artery. Consider correlation with a dedicated CT angiogram of the chest. 2. A common bile duct stent is in place. Pneumobilia has almost completely resolved and there has been a significant increase in intrahepatic biliary ductal dilatation. This suggests occlusion of the stent. 3. An infiltrative mass lesion is suggested in the head of the pancreas. Correlate with the patient's oncological history. 4. There has been a significant increase in multifocal metastatic disease as compared to 07/26/2020. This includes peritoneal carcinomatosis, hepatic metastatic disease, as well as bulky upper abdominal and retroperitoneal lymphadenopathy. 5. Status post distal pancreatectomy, splenectomy, and cholecystectomy. 6. The main portal vein is markedly attenuated with only trace flow. 7. Colonic diverticulosis without CT evidence of acute diverticulitis. 8. 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 The large a multiloculated saccular aneurysm eccentric to the right has significantly increased in size as compared to 07/26/2020. Follow-up with vascular surgery is recommended. 9. Cardiomegaly and trace pleural effusions. 10. Dependent airspace opacities likely represent atelectasis. Clinical correlation will be required. 11. Additional findings as above. ACT 112: Negative or not required by law. Electronically signed by: Clark Newton M.D. 12/30/2020 7:26 AM Chest X-Ray 12/31/20 06:42 XR chest 1V portable CLINICAL HISTORY: tachypnea COMPARISON STUDY: Chest radiograph December 30, 2020. FINDINGS: Right shoulder arthroplasty is incidentally noted. Low lung volumes are again noted. Right basilar opacity favors atelectasis. Left basilar opacity is also noted. No evidence for pulmonary edema. No pneumothorax or pleural effusion is present. IMPRESSION: Low lung volumes with bibasilar opacities. Right basilar opacity favors atelectasis. Left basilar opacity could reflect atelectasis or an infectious process. ACT 112: Negative or not required by law. Electronically signed by: Chang Padilla M.D. 12/31/2020 7:22 AM Hospital Course (1) Acute respiratory failure: (2) Sepsis: (3) Pneumonia: (4) Pancreatic adenocarcinoma: (5) Cholangitis: (6) Pulmonary embolism: (7) Comfort measures only status: The patient was an 85-year-old man with known pancreatic cancer who presented with fever vomiting and altered mental status. On arrival he was septic with hypoxia. He was started on IV fluids and broad-spectrum antibiotics. Chest x-ray revealed a right lower lobe pneumonia which may have been from aspiration in the setting of multiple episodes of vomiting prior to arrival. A CT scan of the abdomen pelvis with IV contrast revealed an acute pulmonary embolus within the branches of the left lower lobe pulmonary artery. A common bile duct stent was in place with resolution of pneumobilia and a significant increase in intrahepatic biliary ductal dilation suggestive of occlusion of the stent. An infiltrative mass lesion was seen in the head of the pancreas consistent with the patient's oncological history. There was a significant increase in multifocal metastatic disease as compared to 07/26/2020. This included peritoneal carcinomatosis, hepatic metastatic disease as well as bulky upper abdominal and retroperitoneal lymphadenopathy. Large saccular aneurysms of abdominal aorta were noted which had increased in size compared to prior scan on 07/26/2020. There were multiple lab abnormalities including a white blood cell count of 40 5K, H&H of 10.4/31, sodium 134, bicarb 18, BUN 35, creatinine 1.63. The patient was admitted to the medicine service and continued on cefepime and vancomycin. Lovenox was started for his acute pulmonary embolus. He was transitioned to BiPAP unsuccessfully as he was unable to tolerate it, and was subsequently transitioned to palliative care measures. He was placed on a morphine drip and given Ativan as needed. He passed peacefully with family surrounding him on 01/02. Total Time Total Time Spent Total Time Spent (In Minutes): 60 Total Time Includes: Examination of the Patient, Discharge Planning, Medication Reconciliation and Communication With Other Providers Discharge Plan Discharge Items Patient Disposition: Discharge Diagnosis: Acute respiratory failure Sepsis Possible ascending cholangitis in setting of obstructed common bile duct stent Possible aspiration pneumonia Klebsiella bacteremia Acute pulmonary embolus Pancreatic adenocarcinoma with metastatic disease Addtl Attending Provider Instructions: n/a
--- NOTE | 2021-01-02 19:21 | Communication Note ---
Date of Service: January 02, 2021 NOTE: Contacted by nursing staff that patient had . On arrival to bedside, there were many family members grieving in the room. The patient was motionless. He was non responsive to physical stimulus. Pupils were fixed and dilated. No heart sounds or breath sounds to auscultation. He was pronounced at 17:45. Jess Peña DO [facility]
== END 2021-01-02 19:30 | disposition expired | DRG 871 ==
LOC: ED 01:28 → SUATTDRO 08:41 → 2W 08:41